=== PATIENT | female | born 1955 | race Hispanic/Latino ===

== ENCOUNTER 2016-08-17 03:13 | Inpatient (IN) | payer BC ==
[2016-08-17 04:18] LABS: ARTERIAL BLOOD GAS HCO3 25.2 mmol/L (21-28); ARTERIAL BLOOD GAS O2 SAT 99.9 % (95-98); ARTERIAL BLOOD GAS TCO2 27.5 mmol.L (22-28)
[2016-08-17 04:27] LABS: ARTERIAL BLOOD GAS PH 7.14 (7.35-7.45)
[2016-08-17 04:27] LABS: VENOUS BLOOD GAS BASE EXCESS -6.4 mmol/L (0.0-2.0); VENOUS BLOOD GAS PO2 76 mm/Hg (30-55)
[2016-08-17 04:28] LABS: ARTERIAL BLOOD GAS PCO2 74 mm/Hg (35-45)
[2016-08-17 04:35] LABS: HEMOGLOBIN 9.9 gm/dL (12.0-16.0); MEAN CELL VOLUME 90.2 fL (80.0-105.0); MEAN CORPUSCULAR HEMOGLOBIN 26.9 pg (25.0-35.0); MEAN CORPUSCULAR HGB CONC 29.8 g/dl (31.0-37.0); PLATELET COUNT 577 10^3/uL (120.0-450.0); RBC 3.68 10^6/uL (3.5-6.1); RED CELL DISTRIBUTION WIDTH 15.9 % (11.5-14.5); VENOUS BLOOD PH 7.07 (7.32-7.43)
[2016-08-17 04:46] LABS: WHITE BLOOD COUNT 27.9 10^3/ul (4.5-11.0)
[2016-08-17 04:49] LABS: ALB/GLOB RATIO 1.4 (1.1-1.8); ALBUMIN 4.2 g/dL (3.0-4.8); ALT/SGPT 51 U/L (7-56); AST/SGOT 48 U/L (15-39); BLOOD UREA NITROGEN 16 mg/dL (7-21); GFR AFRICAN-AMERICAN > 60; GFR NON-AFRICAN AMERICAN 50; MAGNESIUM 2.1 mg/dL (1.7-2.2)
[2016-08-17] MEDS ORDERED: Vancomycin 1gm in NS 250ml 1 GM/250 ML BAG IVPB STA (04:59)
[2016-08-17] MEDS ORDERED: Piperacill/Tazo 4.5gm in NS 4.5 GM/100 ML BAG IVPB STA (04:59)
[2016-08-17 05:01] LABS: B-TYPE NATRIURETIC PEPTIDE 7630 pg/mL (0-450); TROPONIN I 0.05 ng/mL
--- NOTE | 2016-08-17 05:15 | ED PDOC ---
Arrival/HPI - General Chief Complaint: Chest Pain Time Seen by Provider: 08/17/16 03:32 Historian: Patient - Critical Care Critical Care Minutes: 60 minutes - History of Present Illness Narrative History of Present Illness (Text): 08/17/16 03:32 Kenny Messina is a 61 year old female, whose past medical history includes CHF and COPD, who presents to the emergency department complaining of acute onset of shortness of breath that began about 3 hours prior to arrival. Patient notes that she also experiences associated coughs with some mucous production. Patient denies any recent travel, chest pain, fever, nausea, vomiting, or any other complaint at this time. Time/Duration: 1-3 hours Symptom Onset: Sudden Symptom Course: Unchanged Activities at Onset: Rest Context: Home Past Medical History - Provider Review Nursing Documentation Reviewed: Yes - Infectious Disease Hx of Infectious Diseases: None - Reproductive Menopause: Yes - Cardiac Hx Cardiac Disorders: Yes Hx Angina: No Hx Cardiac Arrhythmia: No Hx Circulatory Problems: Yes Hx Congestive Heart Failure: No Hx Heart Murmur: No Hx Heart Transplant: No Hx Hypertension: Yes Hx Internal Defibrillator: No Hx Mitral Valve Prolapse: No Hx Pacemaker: No Hx Peripheral Edema: No Hx Peripheral Vascular Disease: Yes - Pulmonary Hx Respiratory Disorders: Yes Hx Asthma: No Hx Bronchitis: No Hx Chronic Obstructive Pulmonary Disease (COPD): Yes Hx Emphysema: No Hx Pneumonia: Yes Hx Respiratory Aspiration: No Hx Respiratory Tract Infection: No Hx Sleep Apnea: No Hx Tuberculosis: No - Neurological Hx Neurological Disorder: No Hx Alzheimer's Disease: No HX Cerebrovascular Accident: No Hx Dementia: No Hx Dizziness: No Hx Meningitis: No Hx Migraine: No Hx Parkinson's Disease: No Hx Seizures: No Hx Transient Ischemic Attacks (TIA): No - HEENT Hx HEENT Disorder: No Hx Blind: No Hx Cataracts: No Hx Deafness: No Hx Difficulty Chewing: No Hx Epistaxis: No Hx Glaucoma: No Hx Macular Degeneration: No - Renal Hx Renal Disorder: No Hx Dialysis: No Hx Kidney Stones: No Hx Neurogenic Bladder: No Hx Pyelonephritis: No Hx Renal Cancer: No Hx Renal Failure: No - Endocrine/Metabolic Hx Endocrine Disorders: Yes Hx Adrenal Cancer: No Hx Diabetes Insipidus: No Hx Diabetes Mellitus Type 1: No Hx Diabetes Mellitus Type 2: Yes Hx Hyperthyroidism: No Hx Hypothyroidism: No Hx Systemic Lupus Erythematosus: No - Hematological/Oncological Hx Blood Disorders: No Hx AIDS: No Hx Anemia: No Hx Cancer: No Hx Chemotherapy: No Hx Cirrhosis: No Hx Hemophilia: No Hx Hepatitis A: No Hx Hepatitis B: No Hx Hepatitis C: No Hx Metastasis: No Hx Shingles: No Hx Sickle Cell Disease: No Hx Unexplained Bleeding: No - Integumentary Hx Dermatological Disorder: No Hx Basal Cell Carcinoma: No Hx Eczema: No Hx Melanoma: No Hx Psoriasis: No Hx Squamous Cell Carcinoma: No - Musculoskeletal/Rheumatological Hx Musculoskeletal Disorders: No Hx Falls: No - Gastrointestinal Hx Gastrointestinal Disorders: No Hx Colostomy: No Hx Crohn's Disease: No Hx Diverticulitis: No Hx Gall Bladder Disease: No Hx Gastroesophageal Reflux: No Hx Ileostomy: No Hx Liver Failure: No Hx Pancreatitis: No HX Swallowing Problems: No - Genitourinary/Gynecological Hx Genitourinary Disorders: No Hx Hematuria: No Hx Incontinence: No Hx Sexually Transmitted Diseases: No Hx Urinary Tract Infection: No - Psychiatric Hx Psychophysiologic Disorder: No Hx Anxiety: No Hx Bipolar Disorder: No Hx Depression: No Hx Emotional Abuse: No Hx Hallucinations: No Hx Panic Disorder: No Hx Post Traumatic Stress Disorder: No Hx Psychosis: No Hx Physical Abuse: No Hx Schizophrenia: No Hx Sexual Abuse: No Hx Substance Use: No - Surgical History Hx Amputation: No Hx Appendectomy: No Hx Cardiac Catheterization: Yes Hx Cholecystectomy: No Hx Coronary Stent: Yes Hx Gastric Bypass Surgery: No Hx Hysterectomy: No Hx Joint Replacement: No Hx Kidney Transplant: No Hx Liver Transplant: No Hx Mastectomy: No Hx Musculoskeletal Surgery: No Hx Open Heart Surgery: No Hx Orthopedic Surgery: No Hx Splenectomy: No Hx Valve Replacement: No - Anesthesia Hx Anesthesia Reactions: No Hx Malignant Hyperthermia: No - Suicidal Assessment Feels Threatened In Home Enviroment: No Family/Social History - Physician Review Nursing Documentation Reviewed: Yes Family/Social History: No Known Family HX Smoking Status: Former Smoker Hx Alcohol Use: No Hx Substance Use: No Allergies/Home Meds Allergies/Adverse Reactions: Allergies codeine Allergy (Verified 08/17/16 03:27) DIZZINESS erythromycin base Allergy (Verified 08/17/16 03:27) ANAPHYLAXIS promethazine Allergy (Verified 08/17/16 03:27) HEADACHE ciprofloxacin [From Cipro] Adverse Reaction (Verified 08/17/16 03:27) DIZZINESS ciprofloxacin HCl [From Cipro] Adverse Reaction (Verified 08/17/16 03:27) DIZZINESS Home Medications: Home Meds Medication Instructions Recorded Confirmed Simvastatin 5 mg PO .LUNCHTIME 12/21/15 08/17/16 Sitagliptin Phos/Metformin HCl 1 each PO ACD 12/21/15 08/17/16 [Janumet 50-1,000 mg Tablet] Aspirin [Aspirin Chewable] 81 mg PO DAILY 01/30/16 08/17/16 Glimepiride [Amaryl] 1 mg PO ACB 01/30/16 08/17/16 Carvedilol [Coreg] 12.5 mg PO DAILY 04/11/16 08/17/16 Lisinopril [Zestril] 20 mg PO .DINNERTIME 04/11/16 08/17/16 Furosemide [Lasix] 40 mg PO ACB 08/17/16 08/17/16 Review of Systems - Physician Review All systems were reviewed & negative as marked: Yes - Review of Systems Constitutional: absent: Fevers, Night Sweats Eyes: absent: Vision Changes ENT: absent: Hearing Changes Respiratory: SOB, Cough, Sputum Cardiovascular: absent: Chest Pain Gastrointestinal: absent: Abdominal Pain Genitourinary Female: absent: Dysuria, Frequency Musculoskeletal: absent: Arthralgias, Back Pain Skin: absent: Rash, Pruritis Neurological: absent: Headache, Dizziness Endocrine: absent: Diaphoresis, Polyuria Hemo/Lymphatic: absent: Adenopathy Psychiatric: absent: Anxiety Physical Exam Vital Signs Reviewed: Yes Vital Signs Temp Pulse Resp BP Pulse Ox 08/17/16 06:12 92 H 20 125/87 100 08/17/16 05:45 97 H 22 143/79 100 08/17/16 05:32 104 H 24 143/79 100 08/17/16 05:21 110 H 24 134/73 100 08/17/16 05:06 107 H 24 139/65 100 08/17/16 04:45 117 H 22 158/90 H 100 08/17/16 04:33 119 H 28 H 97 08/17/16 04:24 176/95 H 08/17/16 04:11 98.3 F 125 H 28 H 100 08/17/16 03:20 97.7 F 119 H 22 94 L Temperature: Afebrile Blood Pressure: Normal Pulse: Tachycardic Respiratory Rate: Normal Appearance: Positive for: Other (In moderate to severe distress) Pain Distress: None - Systems Exam Head: Present: Atraumatic, Normocephalic Pupils: Present: PERRL Extroacular Muscles: Present: EOMI Conjunctiva: Present: Normal Ears: Present: Normal Mouth: Present: Moist Mucous Membranes Neck: Present: Normal Range of Motion Respiratory/Chest: Present: Rales (3/4 up both lungs). No: Clear to Auscultation, Good Air Exchange (Poor air intake) Cardiovascular: No: Regular Rate and Rhythm (regular and tachycardic) Abdomen: Present: Normal Bowel Sounds. No: Tenderness, Distention, Peritoneal Signs Back: Present: Normal Inspection Upper Extremity: Present: Normal Inspection. No: Cyanosis, Edema Lower Extremity: Present: Normal Inspection. No: Edema Neurological: Present: Other (Somnolent ) Skin: Present: Cold (and clammy) Medical Decision Making ED Course and Treatment: 08/17/16 03:35 Impression: 61 year old female complaining of acute onset of shortness of breath that began about 3 hours prior to arrival. Differential Diagnosis include but are not limited to: Sepsis Plan: -- EKG -- Chest X-ray -- Type and Screen, ABG, VBG, Blood Culture -- Urinalysis, Urine culture -- O2 via Nasal Cannula -- Labs -- Lasix, Vancomycin, and Zosyn -- Reassess and disposition Prior Visits: Notes and results from previous visits were reviewed. Patient last seen in ED on Progress Notes: Code Sepsis called for patient, after CBC results showed an elevated WBC. ICU evaluation pending. EKG: Ordered, reviewed, and independently interpreted the EKG. Rate : 126 BPM Rhythm : Accelerated junctional rhythm Interpretation : Normal Brice, Prolonged QT. 08/17/16 03:35 Patient put in BiPAP immediately on arrival. 08/17/16 04:25 After some time with BiPAP, patient became more awake with respiratory drive less labored. 08/17/16 04:45 Radiology reviewed, Chest X-ray shows CHF pattern. Questionable pleural effusion in right base vs. infiltrate. - Lab Interpretations Lab Results: 08/17/16 04:11 08/17/16 04:11 Lab Results 08/17/16 05:30: Urine Color Yellow, Urine Appearance Clear, Urine pH 6.0, Ur Specific Gove 1.025, Urine Protein 100 H, Urine Glucose (UA) Negative, Urine Ketones Negative, Urine Blood Trace-intact H, Urine Nitrate Negative, Urine Bilirubin Negative, Urine Urobilinogen 0.2, Ur Leukocyte Esterase Trace H, Urine RBC 0 - 2, Urine WBC 0 - 2, Ur Epithelial Cells 0 - 2, Hyaline Casts 0 - 2 08/17/16 04:11: Phosphorus 6.6 H 08/17/16 04:11: Digoxin 1.3 08/17/16 04:11: pO2 76 H, VBG pH 7.07 L*, VBG pCO2 89.0 H*, VBG HCO3 25.8, VBG Total CO2 28.5 H, VBG O2 Sat (Calc) 92.8 H, VBG Base Excess -6.4 L, VBG Potassium 4.7, Sodium 137.0, Chloride 101.0, Glucose 340 H, Lactate 6.0 H*, FiO2 21.0, Venous Blood Potassium 4.7 08/17/16 04:11: Sodium 137, Chloride 98, Potassium 4.3, Carbon Dioxide 25, Anion Gap 18, BUN 16, Creatinine 1.1, Est GFR ( Amer) > 60, Est GFR (Non- Af Amer) 50, Random Glucose 325 H* D, Calcium 9.0, Magnesium 2.1, Total Bilirubin 0.6, AST 48 H, ALT 51, Alkaline Phosphatase 79, Lactate Dehydrogenase 458, Total Creatine Kinase 23 L, Troponin I 0.05 D, NT-Pro-B Natriuret Pep 7630 H, Total Protein 7.3, Albumin 4.2, Globulin 3.1, Albumin/Globulin Ratio 1.4 08/17/16 04:11: WBC 27.9 H* D, RBC 3.68, Hgb 9.9 L, Hct 33.2 L, MCV 90.2, MCH 26.9, MCHC 29.8 L, RDW 15.9 H, Plt Count 577 H, MPV 10.0, Neutrophils % (Manual ) 70, Band Neutrophils % 4 H, Lymphocytes % (Manual) 17 L, Monocytes % (Manual) 5, Eosinophils % (Manual) 4 H, Platelet Evaluation Slightly high 08/17/16 04:08: pCO2 74 H*, pO2 287.0 H, HCO3 25.2, ABG pH 7.14 L*, ABG Total CO2 27.5, ABG O2 Saturation 99.9 H, ABG Base Excess -4.4 L, ABG Potassium 4.6, Sodium 136.0, Chloride 104.0, Glucose 356 H, Lactate 4.1 H*, Mechanical Rate 16 , FiO2 100.0, Inspiratory BiPAP 14, Arterial Blood Potassium 4.6 08/17/16 04:07: POC Glucose (mg/dL) 323 H I have reviewed the lab results: Yes - RAD Interpretation Radiology Orders: 08/17/16 03:33 CHEST PORTABLE [RAD] Stat - Medication Orders Current Medication Orders: Albuterol/Ipratropium (Duoneb 3 Mg/0.5 Mg (3 Ml) Ud) 3 ml IH [id number] QUIRINO Albuterol/Ipratropium (Duoneb 3 Mg/0.5 Mg (3 Ml) Ud) 3 ml IH Q2H PRN PRN Reason: Shortness of Breath Aspirin (Aspirin Chewable) 81 mg PO DAILY QUIRINO Carvedilol (Coreg) 12.5 mg PO DAILY QUIRINO Clopidogrel Bisulfate (Plavix) 75 mg PO DAILY QUIRINO Digoxin (Lanoxin) 0.25 mg PO 1400 QUIRINO Enoxaparin Sodium (Lovenox) 40 mg SC DAILY QUIRINO PRN Reason: Protocol Furosemide (Lasix) 40 mg IVP Q12 QUIRINO Vancomycin HCl (Vancomycin 1gm) 1 gm in 250 mls @ 167 mls/hr IVPB STAT STA PRN Reason: Protocol Stop: 08/17/16 06:28 Last Admin: 08/17/16 06:03 Dose: 167 mls/hr Vancomycin HCl (Vancomycin 1gm) 1 gm in 250 mls @ 167 mls/hr IVPB Q12H QUIRINO PRN Reason: Protocol Piperacillin Sod/Tazobactam Sod (Zosyn 4.5 Gm In Ns 100ml) 4.5 gm in 100 mls @ 200 mls/hr IVPB Q6 QUIRINO PRN Reason: Protocol Stop: 08/17/16 18:29 Insulin Human Lispro (Humalog Med) 0 units SC Q6 QUIRINO PRN Reason: Protocol Lisinopril (Zestril) 20 mg PO .DINNERTIME QUIRINO Non-Formulary Medication (Simvastatin [Simvastatin]) 5 mg PO .LUNCHTIME QUIRINO Pantoprazole Sodium (Protonix Inj) 40 mg IVP DAILY QUIRINO Discontinued Medications Furosemide (Lasix) 40 mg IVP STAT STA Stop: 08/17/16 04:11 Last Admin: 08/17/16 04:24 Dose: 40 mg Piperacillin Sod/Tazobactam Sod (Zosyn 4.5 Gm In Ns 100ml) 4.5 gm in 100 mls @ 200 mls/hr IVPB STAT STA PRN Reason: Protocol Stop: 08/17/16 05:28 Last Admin: 08/17/16 05:13 Dose: 200 mls/hr - Scribe Statement The provider has reviewed the documentation as recorded by the Andrew Jean-Baptiste Provider Scribe Attestation: All medical record entries made by the Scribe were at my direction and personally dictated by me. I have reviewed the chart and agree that the record accurately reflects my personal performance of the history, physical exam, medical decision making, and the department course for this patient. I have also personally directed, reviewed, and agree with the discharge instructions and disposition. Disposition/Present on Arrival - Present on Arrival Any Indicators Present on Arrival: No History of DVT/PE: No History of Uncontrolled Diabetes: No Urinary Catheter: No History of Decub. Ulcer: No History Surgical Site Infection Following: None - Disposition Have Diagnosis and Disposition been Completed?: Yes Diagnosis: Respiratory failure, acute, Chronic obstructive airway disease, Congestive heart failure Disposition: HOSPITALIZED Disposition Time: 05:00 Patient Plan: Admission, ICU Condition: GUARDED
[2016-08-17] MEDS ORDERED: Insulin Lispro (humaLOG) MEDIUM Coverage SC SCH (06:00)
--- NOTE | 2016-08-17 06:04 | CP.PCM.CON ---
History of Present Illness - History of Present Illness History of Present Illness: Reason for consultation: ICU management History of present illness: Patient is a 61 year old female with a PMHx of CHF, COPD, and PVD who presented today with the complaints of difficulty breathing. She states that she was trying to sleep and realized she was struggling to breathe. She also mentions that as of late she has a productive cough and at times brings up clear phlegm. She denies nausea, vomiting, diarrhea, headache, chest pain. Past Medical History:COPD, CHF, PVD Home medications:Simvastatin 10 mg, Janumet 50-1000mg, Plavix 75 mg tab, Aspirin 81 mg PO daily, Amaryl 1 mg PO, Lanoxin 0.25 mg PO, Zestril 20 g PO at dinner, Coreg 12.5 mg daily, lasix 40 mg PO ACB. Current Meds:Janumet 50-1000 mg 1 each PO ACD, Amaryl 1 mg PO ACB, Lasix 40 mg PO ACB, Vancomycin 1 gm, Zosyn 4.5 gm, Duoneb 3mg/0.5 q2H PRN, Humalog SC Q6, Zestril 20 mg PO, Simvastatin 5 mg PO lunchtime, Duoneb 3mg/0.5 # ml IH [id number] , Lasix 40 mg IVP Q12, Aspirin 81 mg PO daily, Coreg 12.5 daily, Plavix 75 mg PO daily, Aosyn 4.5 in 100 ml IVPB Q6, Lanoxin 0.25 mg PO 1400, Vancomycin 1 gm in 250 ml IVPB Q12H Allergies: codeine, erythromycin base, promethazine, ciprofloxacin Social History: Patient smoked heavily until she was intubated in December Past Patient History - Infectious Disease Hx of Infectious Diseases: None - Past Social History Smoking Status: Former Smoker - CARDIAC Hx Cardiac Disorders: Yes Hx Angina: No Hx Cardia Arrhythmia: No Hx Circulatory Problems: Yes Hx Congestive Heart Failure: No Hx Heart Murmur: No Hx Heart Transplant: No Hx Hypertension: Yes Hx Internal Defibrillator: No Hx Mitral Valve Prolapse: No Hx Pacemaker: No Hx Peripheral Edema: No Hx Peripheral Vascular Disease: Yes - PULMONARY Hx Respiratory Disorders: Yes Hx Asthma: No Hx Bronchitis: No Hx Chronic Obstructive Pulmonary Disease (COPD): Yes Hx Emphysema: No Hx Pneumonia: Yes Hx Respiratory Aspiration: No Hx Respiratory Tract Infection: No Hx Sleep Apnea: No Hx Tuberculosis: No - NEUROLOGICAL Hx Neurological Disorder: No Hx Alzheimer's Disease: No HX Cerebrovascular Accident: No Hx Dementia: No Hx Dizziness: No Hx Meningitis: No Hx Migraine: No Hx Parkinson's Disease: No Hx Seizures: No Hx Transient Ischemic Attacks (TIA): No - HEENT Hx HEENT Problems: No Hx Blind: No Hx Cataracts: No Hx Deafness: No Hx Difficulty Chewing: No Hx Epistaxis: No Hx Glaucoma: No Hx Macular Degeneration: No - RENAL Hx Chronic Kidney Disease: No Hx Dialysis: No Hx Kidney Stones: No Hx Neurogenic Bladder: No Hx Pyelonephritis: No Hx Renal (Kidney) Cancer: No Hx Renal Failure: No - ENDOCRINE/METABOLIC Hx Endocrine Disorders: Yes Hx Adrenal Cancer: No Hx Diabetes Insipidus: No Hx Diabetes Mellitus Type 1: No Hx Diabetes Mellitus Type 2: Yes Hx Hyperthyroidism: No Hx Hypothyroidism: No Hx Systemic Lupus Erythematosus: No - HEMATOLOGICAL/ONCOLOGICAL Hx Blood Disorders: No Hx AIDS: No Hx Anemia: No Hx Cancer: No Hx Chemotherapy: No Hx Cirrhosis: No Hx Hemophilia: No Hx Hepatitis A: No Hx Hepatitis B: No Hx Hepatitis C: No Hx Metastesis: No Hx Shingles: No Hx Sickle Cell Disease: No Hx Unexplained Bleeding: No - INTEGUMENTARY Hx Dermatological Problems: No Hx Basil Cell: No Hx Eczema: No Hx Melanoma: No Hx Psoriasis: No Hx Squamous Cell: No - MUSCULOSKELETAL/RHEUMATOLOGICAL Hx Musculoskeletal Disorders: No Hx Falls: No - GASTROINTESTINAL Hx Gastrointestinal Disorders: No Hx Colostomy: No Hx Crohn's Disease: No Hx Diverticulitis: No Hx Gall Bladder Disease: No Hx Gastroesophageal Reflux: No Hx Ileostomy: No Hx Liver Failure: No Hx Pancreatitis: No HX Swallowing Problems: No - GENITOURINARY/GYNECOLOGICAL Hx Genitourinary Disorders: No Hx Hematuria: No Hx Incontinence: No Hx Sexually Transmitted Disorders: No Hx Urinary Tract Infection: No - PSYCHIATRIC Hx Psychophysiologic Disorder: No Hx Anxiety: No Hx Bipolar Disorder: No Hx Depression: No Hx Emotional Abuse: No Hx Hallucinations: No Hx Panic Symptoms: No Hx Post Traumatic Stress Disorder: No Hx Psychosis: No Hx Physical Abuse: No Hx Schizophrenia: No Hx Sexual Abuse: No Hx Substance Use: No - SURGICAL HISTORY Hx Amputation: No Hx Appendectomy: No Hx Cardiac Catheterization: Yes Hx Cholecystectomy: No Hx Coronary Stent: Yes Hx Gastric Bypass Surgery: No Hx Hysterectomy: No Hx Joint Replacement: No Hx Kidney Transplant: No Hx Liver Transplant: No Hx Mastectomy: No Hx Musculoskeletal Surgery: No Hx Open Heart Surgery: No Hx Orthopedic Surgery: No Hx Splenectomy: No Hx Valve Replacement: No - ANESTHESIA Hx Anesthesia Reactions: No Hx Malignant Hyperthermia: No Meds Allergies/Adverse Reactions: Allergies Allergy/AdvReac Type Severity Reaction Status Date / Time codeine Allergy DIZZINESS Verified 08/17/16 03:27 erythromycin base Allergy ANAPHYLAXIS Verified 08/17/16 03:27 promethazine Allergy HEADACHE Verified 08/17/16 03:27 ciprofloxacin [From Cipro] AdvReac DIZZINESS Verified 08/17/16 03:27 ciprofloxacin HCl AdvReac DIZZINESS Verified 08/17/16 03:27 [From Cipro] - Medications Medications: Current Medications Vancomycin HCl (Vancomycin 1gm) 1 gm in 250 mls @ 167 mls/hr IVPB STAT STA PRN Reason: Protocol Stop: 08/17/16 06:28 Vancomycin HCl (Vancomycin 1gm) 1 gm in 250 mls @ 167 mls/hr IVPB Q12H QUIRNIO PRN Reason: Protocol Piperacillin Sod/Tazobactam Sod (Zosyn 4.5 Gm In Ns 100ml) 4.5 gm in 100 mls @ 200 mls/hr IVPB Q6 QUIRINO PRN Reason: Protocol Stop: 08/17/16 18:29 Results - Vital Signs Recent Vital Signs: Last Vital Signs Temp 98.3 F 08/17/16 04:11 Pulse 119 H 08/17/16 04:33 Resp 28 H 08/17/16 04:33 BP 176/95 H 08/17/16 04:24 Pulse Ox 97 08/17/16 04:33 - Labs Result Diagrams: 08/17/16 04:11 08/17/16 04:11
[2016-08-17 06:06] LABS: URINE BILIRUBIN NEGATIVE (NEGATIVE); URINE BLOOD TRACE-INTACT (NEGATIVE); URINE GLUCOSE (UA) NEGATIVE (NEGATIVE); URINE LEUKOCYTE ESTERASE TRACE Leu/uL (NEGATIVE); URINE NITRATE NEGATIVE (NEGATIVE); URINE PROTEIN 100 mg/dL (<30 mg/dL); URINE UROBILINOGEN 0.2 E.U./dL (<1 E.U./dL)
[2016-08-17 06:07] LABS: URINE APPEARANCE CLEAR (CLEAR); URINE COLOR YELLOW (YELLOW)
[2016-08-17 06:14] LABS: BAND 4 % (0-2); NEUTROPHIL 70 % (50.0-70.0)
[2016-08-17 06:15] LABS: EOSINOPHIL 4 % (0.0-3.0); LYMPHOCYTE 17 % (22.0-35.0); MONOCYTE 5 % (1.0-6.0); PLATELET ESTIMATE SLIGHTLY HIGH (NORMAL)
[2016-08-17 06:19] LABS: URINE EPITHELIAL CELLS 0 - 2 /hpf (0-5); URINE HYALINE CAST 0 - 2 /hpf; URINE RBC 0 - 2 /hpf (0-2); URINE WBC 0 - 2 /hpf (0-6)
[2016-08-17 07:18] LABS: HEMOGLOBIN 8.7 gm/dL (12.0-16.0); MEAN CELL VOLUME 88.4 fL (80.0-105.0); MEAN CORPUSCULAR HEMOGLOBIN 26.4 pg (25.0-35.0); MEAN CORPUSCULAR HGB CONC 29.9 g/dl (31.0-37.0); MEAN PLATELET VOLUME 9.4 fl (7.0-11.0); PLATELET COUNT 389 10^3/uL (120.0-450.0); RBC 3.29 10^6/uL (3.5-6.1); RED CELL DISTRIBUTION WIDTH 15.6 % (11.5-14.5); WHITE BLOOD COUNT 22.6 10^3/ul (4.5-11.0)
[2016-08-17 07:31] LABS: ALB/GLOB RATIO 1.4 (1.1-1.8); ALBUMIN 3.7 g/dL (3.0-4.8); ALT/SGPT 62 U/L (7-56); AST/SGOT 58 U/L (15-39); BLOOD UREA NITROGEN 19 mg/dL (7-21); GFR AFRICAN-AMERICAN > 60; GFR NON-AFRICAN AMERICAN 50; HDL CHOLESTEROL 41 mg/dL (29-60); LDL CHOLESTEROL 42 mg/dL (0-129)
--- NOTE | 2016-08-17 07:35 | CP.PCM.CON ---
<Skinny Barry - Last Filed: 08/17/16 09:05> History of Present Illness - History of Present Illness History of Present Illness: ICU Consult for Dr. Longoria Reason for consultation: Code Sepsis, Pneumonia vs CHF with desaturations to 70 % requiring BiPAP HPI: This is a 61 yo female with a PMH of COPD (previously intubated x2 for resp failure), CAD s/p stenting. NSTEMI in Dec 2015, CHF with EF 35-40% ( Dec 2015), and PAD with claudication who presented to the ED with significant dyspnea and respiratory distress. As per patient and at bedside, her breathing became acutely difficult approximately 3-4 hours prior to presentation , while trying to sleep. Only alleviating factor was sitting up and leaning forward, with minimal relief. Patient does admit to recent increased cough, intermittently productive with white phlegm. Upon arrival to ED, was found to be in respiratory distress and severely acidotic and hypercapnic on ABG, desatting to the 70's as per ED attending. She was then started on BiPAP, at which point her sats improved to 90's and her tachycardia and respiratory distress improved. CXR was notable for diffuse R-sided infiltrate and opcification, concerning for pneumonia vs fluid overload. WBC count on ED labs was 27.9 and lactate was 4.1, so in the setting of suspected pneumonia, Code Sepsis was called. At time of interview, patient was stable on Bipap with mild tachycardia (HR on monitor 100-110), but satting 100% on Bipap, and appearing less distressed. Patient denies chest pain, pain with breathing, near-syncope, nausea/emesis, focal weakness, or general pain. Intermittently experiencing cough spams during exam. PMH: As above PSH: Cardiac cath SHx: Former smoker (1-2 ppd x40 years, quit Dec 2015), denies alcohol/illicits FHx (as per prior charting): Brain Cancer (mother), Diabetes (father) Allergies: codeine, erythromycin base, promethazine, ciprofloxacin PMD: Dr. Corona Review of Systems - Review of Systems All systems: reviewed and no additional remarkable complaints except (as in HPI) Past Patient History - Infectious Disease Hx of Infectious Diseases: None - Past Social History Smoking Status: Former Smoker - CARDIAC Hx Cardiac Disorders: Yes Hx Angina: No Hx Cardia Arrhythmia: No Hx Circulatory Problems: Yes Hx Congestive Heart Failure: No Hx Heart Murmur: No Hx Heart Transplant: No Hx Hypertension: Yes Hx Internal Defibrillator: No Hx Mitral Valve Prolapse: No Hx Pacemaker: No Hx Peripheral Edema: No Hx Peripheral Vascular Disease: Yes - PULMONARY Hx Respiratory Disorders: Yes Hx Asthma: No Hx Bronchitis: No Hx Chronic Obstructive Pulmonary Disease (COPD): Yes Hx Emphysema: No Hx Pneumonia: Yes Hx Respiratory Aspiration: No Hx Respiratory Tract Infection: No Hx Sleep Apnea: No Hx Tuberculosis: No - NEUROLOGICAL Hx Neurological Disorder: No Hx Alzheimer's Disease: No HX Cerebrovascular Accident: No Hx Dementia: No Hx Dizziness: No Hx Meningitis: No Hx Migraine: No Hx Parkinson's Disease: No Hx Seizures: No Hx Transient Ischemic Attacks (TIA): No - HEENT Hx HEENT Problems: No Hx Blind: No Hx Cataracts: No Hx Deafness: No Hx Difficulty Chewing: No Hx Epistaxis: No Hx Glaucoma: No Hx Macular Degeneration: No - RENAL Hx Chronic Kidney Disease: No Hx Dialysis: No Hx Kidney Stones: No Hx Neurogenic Bladder: No Hx Pyelonephritis: No Hx Renal (Kidney) Cancer: No Hx Renal Failure: No - ENDOCRINE/METABOLIC Hx Endocrine Disorders: Yes Hx Adrenal Cancer: No Hx Diabetes Insipidus: No Hx Diabetes Mellitus Type 1: No Hx Diabetes Mellitus Type 2: Yes Hx Hyperthyroidism: No Hx Hypothyroidism: No Hx Systemic Lupus Erythematosus: No - HEMATOLOGICAL/ONCOLOGICAL Hx Blood Disorders: No Hx AIDS: No Hx Anemia: No Hx Cancer: No Hx Chemotherapy: No Hx Cirrhosis: No Hx Hemophilia: No Hx Hepatitis A: No Hx Hepatitis B: No Hx Hepatitis C: No Hx Metastesis: No Hx Shingles: No Hx Sickle Cell Disease: No Hx Unexplained Bleeding: No - INTEGUMENTARY Hx Dermatological Problems: No Hx Basil Cell: No Hx Eczema: No Hx Melanoma: No Hx Psoriasis: No Hx Squamous Cell: No - MUSCULOSKELETAL/RHEUMATOLOGICAL Hx Musculoskeletal Disorders: No Hx Falls: No - GASTROINTESTINAL Hx Gastrointestinal Disorders: No Hx Colostomy: No Hx Crohn's Disease: No Hx Diverticulitis: No Hx Gall Bladder Disease: No Hx Gastroesophageal Reflux: No Hx Ileostomy: No Hx Liver Failure: No Hx Pancreatitis: No HX Swallowing Problems: No - GENITOURINARY/GYNECOLOGICAL Hx Genitourinary Disorders: No Hx Hematuria: No Hx Incontinence: No Hx Sexually Transmitted Disorders: No Hx Urinary Tract Infection: No - PSYCHIATRIC Hx Psychophysiologic Disorder: No Hx Anxiety: No Hx Bipolar Disorder: No Hx Depression: No Hx Emotional Abuse: No Hx Hallucinations: No Hx Panic Symptoms: No Hx Post Traumatic Stress Disorder: No Hx Psychosis: No Hx Physical Abuse: No Hx Schizophrenia: No Hx Sexual Abuse: No Hx Substance Use: No - SURGICAL HISTORY Hx Amputation: No Hx Appendectomy: No Hx Cardiac Catheterization: Yes Hx Cholecystectomy: No Hx Coronary Stent: Yes Hx Gastric Bypass Surgery: No Hx Hysterectomy: No Hx Joint Replacement: No Hx Kidney Transplant: No Hx Liver Transplant: No Hx Mastectomy: No Hx Musculoskeletal Surgery: No Hx Open Heart Surgery: No Hx Orthopedic Surgery: No Hx Splenectomy: No Hx Valve Replacement: No - ANESTHESIA Hx Anesthesia Reactions: No Hx Malignant Hyperthermia: No Meds Allergies/Adverse Reactions: Allergies Allergy/AdvReac Type Severity Reaction Status Date / Time codeine Allergy DIZZINESS Verified 08/17/16 03:27 erythromycin base Allergy ANAPHYLAXIS Verified 08/17/16 03:27 promethazine Allergy HEADACHE Verified 08/17/16 03:27 ciprofloxacin [From Cipro] AdvReac DIZZINESS Verified 08/17/16 03:27 ciprofloxacin HCl AdvReac DIZZINESS Verified 08/17/16 03:27 [From Cipro] - Medications Medications: Current Medications Albuterol/Ipratropium (Duoneb 3 Mg/0.5 Mg (3 Ml) Ud) 3 ml IH [id number] QUIRINO Albuterol/Ipratropium (Duoneb 3 Mg/0.5 Mg (3 Ml) Ud) 3 ml IH Q2H PRN PRN Reason: Shortness of Breath Aspirin (Aspirin Chewable) 81 mg PO DAILY [facility] Atorvastatin Calcium (Lipitor) 10 mg PO DIN [facility] Carvedilol (Coreg) 12.5 mg PO DAILY [facility] Clopidogrel Bisulfate (Plavix) 75 mg PO DAILY [facility] Digoxin (Lanoxin) 0.25 mg PO 1400 [facility] Enoxaparin Sodium (Lovenox) 40 mg SC DAILY [facility] PRN Reason: Protocol Furosemide (Lasix) 40 mg IVP Q12 [facility] Vancomycin HCl (Vancomycin 1gm) 1 gm in 250 mls @ 167 mls/hr IVPB Q12H [facility] PRN Reason: Protocol Piperacillin Sod/Tazobactam Sod (Zosyn 4.5 Gm In Ns 100ml) 4.5 gm in 100 mls @ 200 mls/hr IVPB Q6 [facility] PRN Reason: Protocol Stop: 08/17/16 18:29 Insulin Human Lispro (Humalog Med) 0 units SC Q6 [facility] PRN Reason: Protocol Lisinopril (Zestril) 20 mg PO DIN [facility] Pantoprazole Sodium (Protonix Inj) 40 mg IVP DAILY [facility] Physical Exam - Constitutional Appears: Non-toxic, Chronically Ill Additional comments: Resolving distress, patient in reduced respiratory distress on BiPAP and generally more stable - Head Exam Head Exam: ATRAUMATIC, NORMAL INSPECTION, NORMOCEPHALIC - Eye Exam Eye Exam: EOMI, Normal appearance. absent: Conjunctival injection, Scleral icterus Pupil Exam: absent: Irregular, Unequal - ENT Exam Additional comments: wearing BiPAP mask - Neck Exam Neck exam: Negative for: Tenderness - Respiratory Exam Respiratory Exam: Decreased Breath Sounds (diffusely decreased breath sounds in all truong), Rales (significant rales along all truong of bottom 2/3rd of right lung, present anterior and posteriorly). absent: Accessory Muscle Use, Chest Wall Tenderness, Clear to Auscultation Bilateral, Stridor, NORMAL BREATHING PATTERN Additional comments: wearing bipap intermittent coughing fits during exam - Cardiovascular Exam Cardiovascular Exam: Tachycardia, REGULAR RHYTHM, +S1, +S2. absent: Bradycardia , Irregular Rhythm, JVD, RRR, +S4 - GI/Abdominal Exam GI & Abdominal Exam: Normal Bowel Sounds, Soft. absent: Diminished Bowel Sounds , Hyperactive Bowel Sounds, Hypoactive Bowel Sounds, Tenderness - Extremities Exam Extremities exam: Negative for: calf tenderness, joint swelling, pedal edema, tenderness - Back Exam Back exam: absent: rash noted - Neurological Exam Neurological exam: Alert, Oriented x3 - Psychiatric Exam Psychiatric exam: Normal Affect Additional comments: some mild anxiety, but improved as compared to level on arrival, likely 2/2 respiratory distress and improvement of distress - Skin Skin Exam: Dry, Intact, Normal Color, Warm Results - Vital Signs Recent Vital Signs: Last Vital Signs Temp 98.3 F 08/17/16 04:11 Pulse 92 H 08/17/16 06:12 Resp 20 08/17/16 06:12 BP 125/87 08/17/16 06:12 Pulse Ox 100 08/17/16 06:12 - Labs Result Diagrams: 08/17/16 06:50 08/17/16 06:50 Assessment & Plan - Assessment and Plan (Free Text) Assessment: This is a 61 yo female with a PMH of COPD (previously intubated x2 for resp failure), CAD s/p stenting. NSTEMI in Dec 2015, CHF with EF 35-40% ( Dec 2015), and PAD with claudication who presented to the ED with significant dyspnea and respiratory distress, and was admitted to the ICU for sepsis with lactic acidosis (severe sepsis under old guidelines) and respiratory distress requiring BiPAP. Plan: Neuro: -awake and alert, responsive to questions, following all commands -low-normal temp on arrival (97.7F), remains normothermic currently, continue to monitor -maintain normothermia Cardio: -Tachycardic on arrival, improved now, likely 2/2 respiratory distress -Hemodynamically stable, maintain MAP > 65, no pressor support needed at this time -Continue home Coreg, Asa, statin, digoxin, lisinopril; dig level wnl -Likely some CHF component, BNP 7630 -Holding home lasix in favor of 40mg IVP q12 Lasix -trop#1 0.05 -Cardio consulted, appreciate all recs -no euvolemia as likely fluid overloaded, conservative fluid management Pulm: -CXR concerning for right-sided pneumonia, possible pleural effusion -Afebrile, but leukocytosis of 27.9 and VBG lactate 6.0 with x-ray findings concerning for sepsis 2/2 pneumonia, covering with Vanco & Zosyn pending ID eval -Satting well on BiPAP, desatted to 70's in ED prior to Bipap -ABG in ED notable for respiratory acidosis with ph 7.14, hypercapnea, normal bicarb, not compensated as per winter's formula (expected pCO2 based on bicarb 25.2 is 44-48, pCO2 on abg was 72), repeat ABG in AM, f/u -maintain SaO2 > 90%, paO2 > 60, aspiration precautions, head of bed to 30 degrees -Nebs q4 quirino and q2 prn GI: -NPO -Protonix for ppx Renal: -Cr. 1.1, baseline per prior charting -pt reports no urinary changes or difficulty -monitor and replete all electrolytes as needed -Strict I's&O's, want net-negative fluid balance as appears fluid overloaded -maintain euglycemia (BG 140-180) ID: -WBCs of 27.9, afebrile -Vanc/Zosyn x1 each in ED, will continue pending ID eval and recs -Blood and urine cx pending, UA not indicative of infectious process -Lactate 6.0 on admission -Severe sepsis under old criteria, SOFA score 1 Heme: -Anemia with Hgb 9.9, baseline since Jan 2016 as per charting -continue to monitor -Lovenox for DVT/PE ppx Endo: -elevate BG (>300) on arrival may be 2/2 stress from respiratory distress +/- pneumonia -no anion gap on chemistries -continue to monitor, if no improvement of glucose with improvement of respiratory distress, can consider insulin sliding scale Dispo: ICU, BIPAP for hypercapnic respiratory distress, IV abx for suspected pneumonia and IV diuresis for suspected CHF exacerbation FEN: NPO Access: Peripheral IV Consults: Cardio, ID Ppx: Protonix for GI, Lovenox 40mg SC for DVT Code Status: Unknown, so Full Code Patient seen, reviewed, and discussed with attending, Dr. Longoria. <Swati CORRIGAN,[facility] - Last Filed: 08/27/16 05:10> Results - Vital Signs Recent Vital Signs: Last Vital Signs Temp 97.6 F 08/24/16 17:46 Pulse 75 08/24/16 18:56 Resp 18 08/24/16 17:46 BP 140/78 08/24/16 18:56 Pulse Ox 100 08/24/16 06:00 - Labs Result Diagrams: 08/23/16 07:00 08/23/16 07:00 Attending/Attestation - Attestation I have personally seen and examined this patient.: Yes I have fully participated in the care of the patient.: Yes I have reviewed all pertinent clinical information: Yes Notes (Text): 08/27/16 05:10 -I agree with the above ICU consult note completed by the resident physician.
[2016-08-17 07:48] LABS: FREE T4 1.47 ng/dL (0.78-2.19); T4 9.2 ug/dL (5.5-11.0)
[2016-08-17 08:48] LABS: ATYPICAL LYMPHOCYTE 0 % (0.0-0.0); BAND 7 % (0-2); EOSINOPHIL 1 % (0.0-3.0); LYMPHOCYTE 3 % (22.0-35.0); MONOCYTE 0 % (1.0-6.0); NEUTROPHIL 89 % (50.0-70.0); PLATELET ESTIMATE NORMAL (NORMAL)
[2016-08-17 08:49] LABS: LARGE PLATELETS PRESENT; OVALOCYTES SLIGHT
--- NOTE | 2016-08-17 09:19 | PCM.SEPTIC ---
Sepsis Progress Note - Reassessment Type Date of Evaluation: 08/17/16 Time of Evaluation: 09:30 Reassessment Type: Non-invasive reassessment - Non Invasive Reassessment Were the most recent vital sign reviewed: Yes Vital Sign (Latest): Temp Pulse Resp BP Pulse Ox 98.3 F 92 H 20 125/87 100 08/17/16 04:11 08/17/16 06:12 08/17/16 06:12 08/17/16 06:12 08/17/16 06:12 Cardiovascular: Yes: Regular Rate, Rhythm. No: Bradycardia, Tachycardia Respiratory: Yes: Rales (mild). No: Accessory Muscle Use, Respiratory Distress Capillary Refill: Normal (Less than 2 sec) Skin: Normal Color, Warm
--- NOTE | 2016-08-17 09:24 | RAD ---
HISTORY: SOB COMPARISON: 04/11/2016 FINDINGS: LUNGS: No active pulmonary disease. PLEURA: No significant pleural effusion identified, no pneumothorax apparent. CARDIOVASCULAR: The heart is normal in size. There is mild vascular congestion OSSEOUS STRUCTURES: No significant abnormalities. VISUALIZED UPPER ABDOMEN: Normal. OTHER FINDINGS: None. IMPRESSION: Mild vascular congestion
[2016-08-17 09:25] VITALS: BMI 22.9
[2016-08-17] MEDS: Enoxaparin 40 mg Syringe SC SCH (09:26)
[2016-08-17] MEDS: MethylPREDNISolone 40 mg Vial IV SCH ×2 (09:28→22:23)
[2016-08-17 09:41] LABS: ARTERIAL BLOOD GAS HCO3 26.6 mmol/L (21-28); ARTERIAL BLOOD GAS HEMOGLOBIN 7.3 g/dL (11.7-17.4); ARTERIAL BLOOD GAS O2 CAPACITY 10.7 mL/dl (16-24); ARTERIAL BLOOD GAS O2 CONTENT 10.6 ML/dl (15-23); ARTERIAL BLOOD GAS O2 SAT 99.5 % (95-98); ARTERIAL BLOOD GAS PCO2 42 mm/Hg (35-45); ARTERIAL BLOOD GAS PH 7.41 (7.35-7.45); ARTERIAL BLOOD GAS TCO2 27.9 mmol.L (22-28)
[2016-08-17] MEDS: Albuterol-Ipratrop 3 mg / 0.5 (3 ml) UD IH SCH ×4 (09:43→20:40)
[2016-08-17 10:59] LABS: VENOUS BLOOD GAS BASE EXCESS 4.9 mmol/L (0.0-2.0); VENOUS BLOOD GAS PO2 37 mm/Hg (30-55); VENOUS BLOOD PH 7.36 (7.32-7.43)
--- NOTE | 2016-08-17 11:30 | CP.PCM.PN ---
<JAY CORTEZ - Last Filed: 08/17/16 17:43> Subjective - Date & Time of Evaluation Date of Evaluation: 08/17/16 Time of Evaluation: 11:27 - Subjective Subjective: Pt seen and examined at bedside. Admitted overnight for SOb, labored breathing, hypercapneic resp failure 2/2 COPD. This morning, pt c/o mild cough with white sputum, denies sob, fever, chills, chest tightness, n/v/d, abdominal pain. Objective - Vital Signs/Intake and Output Vital Signs (last 24 hours): Temp Pulse Resp BP Pulse Ox 98.0 F 80 24 125/61 100 08/17/16 06:46 08/17/16 11:00 08/17/16 11:00 08/17/16 11:00 08/17/16 11:00 - Medications Medications: Current Medications Albuterol/Ipratropium (Duoneb 3 Mg/0.5 Mg (3 Ml) Ud) 3 ml IH [id number] COUNTS [facility]CLUDE 234 BEDS AT [facility] Last Admin: 08/17/16 09:43 Dose: 3 ml Albuterol/Ipratropium (Duoneb 3 Mg/0.5 Mg (3 Ml) Ud) 3 ml IH Q2H PRN PRN Reason: Shortness of Breath Aspirin (Aspirin Chewable) 81 mg PO DAILY [facility] Last Admin: 08/17/16 09:25 Dose: 81 mg Atorvastatin Calcium (Lipitor) 10 mg PO DIN [facility] 234 [facility]S AT [facility] Carvedilol (Coreg) 12.5 mg PO DAILY [facility] 234 [facility]S [facility] Last Admin: 08/17/16 09:25 Dose: 12.5 mg Clopidogrel Bisulfate (Plavix) 75 mg PO DAILY [facility] 234 [facility]S [facility] Last Admin: 08/17/16 09:27 Dose: 75 mg Digoxin (Lanoxin) 0.25 mg PO 1400 [facility] 234 [facility]EDS [facility] Enoxaparin Sodium (Lovenox) 40 mg SC DAILY [facility] 234 [facility]S [facility] PRN Reason: Protocol Last Admin: 08/17/16 09:26 Dose: 40 mg Furosemide (Lasix) 40 mg IVP Q12 [facility] 234 [facility]S [facility] Last Admin: 08/17/16 09:26 Dose: 40 mg Vancomycin HCl (Vancomycin 1gm) 1 gm in 250 mls @ 167 mls/hr IVPB Q12H [facility]CLUDE 234 BEDS AT [facility] PRN Reason: Protocol Piperacillin Sod/Tazobactam Sod (Zosyn 4.5 Gm In Ns 100ml) 4.5 gm in 100 mls @ 200 mls/hr IVPB Q6 [facility] PRN Reason: Protocol Stop: 08/17/16 18:29 Insulin Human Lispro (Humalog Med) 0 units SC ACHS COUNTS INCLUDE 234 BEDS AT [facility] PRN Reason: Protocol Lisinopril (Zestril) 20 mg PO DIN [facility] Methylprednisolone (Solu-Medrol) 40 mg IV Q12 [facility]S [facility]CLUDE 234 BEDS AT [facility] Last Admin: 08/17/16 09:28 Dose: 40 mg Pantoprazole Sodium (Protonix Inj) 40 mg IVP DAILY [facility] 234 [facility]S [facility] Last Admin: 08/17/16 09:27 Dose: 40 mg - Labs Labs: 08/17/16 06:50 08/17/16 06:50 - Constitutional Appears: No Acute Distress - Head Exam Head Exam: ATRAUMATIC, NORMOCEPHALIC - Eye Exam Eye Exam: PERRL - ENT Exam ENT Exam: Mucous Membranes Moist - Respiratory Exam Respiratory Exam: Clear to Ausculation Bilateral - Cardiovascular Exam Cardiovascular Exam: REGULAR RHYTHM, +S1, +S2 - GI/Abdominal Exam GI & Abdominal Exam: Soft, Normal Bowel Sounds. absent: Distended, Tenderness - Extremities Exam Extremities Exam: absent: Calf Tenderness, Pedal Edema - Psychiatric Exam Psychiatric exam: Normal Mood Assessment and Plan - Assessment and Plan (Free Text) Assessment: 61 F with PMH COPD requiring intubations, CHF with EF 25-30%, NSTEMI, admitted to ICU for hypercapneic respiratory failure 2/2 likely COPD, which is now resolved. Pt initially requiring bipap, then switched to HFNC, tolerating well. Pt receiving duonebs, methylprednisolone, and IV abx. Will downgrade to med- surg. Plan: Neuro: AAox3. No mental status changes. Cardio: Normotensive, NSR HR 92. EF 25-30%. No peripheral edema. maintain MAP > 65 Continue home Coreg, Asa, statin, digoxin, lisinopril; dig level wnl trop neg x1. Pulm: Hypercapneic respiratory failure initially --> improved with bipap --> repeat ABG shows improved acidosis and hypercapnea resolved. Bipap->HFNC now. maintain SaO2 > 90%, aspiration precautions, head of bed to 30 degrees C/w nebs, methylprednisolone, IV abx GI: Diabetic diet. Renal: monitor and replete all electrolytes as needed ID: leukocytosis improving, c/w abx, lactate improved, 2.6 today. Continue to trend wbcs, lactate. Heme: Anemia with Hgb 9.9, baseline since Jan 2016 as per charting continue to monitor Endo: ISS. maintain euglycemia. Dispo: Pt to be downgraded to Med-surg. ICU, BIPAP for hypercapnic respiratory distress, IV abx for suspected pneumonia and IV diuresis for Protonix for GI ppx Lovenox 40mg SC for DVT ppx Code Status: Unknown, so Full Code Patient reviewed, and discussed with PGY2 and attending, Dr. Amado. Jay Cortez, PGY1 <Last Amado - Last Filed: 08/17/16 17:59> Objective - Vital Signs/Intake and Output Vital Signs (last 24 hours): Temp Pulse Resp BP Pulse Ox 98.4 F 78 20 140/62 100 08/17/16 16:00 08/17/16 17:41 08/17/16 16:00 08/17/16 17:41 08/17/16 16:00 - Medications Medications: Current Medications Albuterol/Ipratropium (Duoneb 3 Mg/0.5 Mg (3 Ml) Ud) 3 ml IH [id number] COUNTS INCLUDE 234 BEDS AT [facility] Last Admin: 08/17/16 15:45 Dose: Not Given Albuterol/Ipratropium (Duoneb 3 Mg/0.5 Mg (3 Ml) Ud) 3 ml IH Q2H PRN PRN Reason: Shortness of Breath Last Admin: 08/17/16 13:03 Dose: 3 ml Aspirin (Aspirin Chewable) 81 mg PO DAILY [facility] 234 [facility]S [facility] Last Admin: 08/17/16 09:25 Dose: 81 mg Atorvastatin Calcium (Lipitor) 10 mg PO DIN [facility] 234 [facility]S [facility] Last Admin: 08/17/16 17:41 Dose: 10 mg Carvedilol (Coreg) 12.5 mg PO DAILY [facility] 234 [facility]S [facility] Last Admin: 08/17/16 09:25 Dose: 12.5 mg Clopidogrel Bisulfate (Plavix) 75 mg PO DAILY [facility] 234 [facility]S [facility] Last Admin: 08/17/16 09:27 Dose: 75 mg Digoxin (Lanoxin) 0.25 mg PO 1400 [facility] 234 [facility]EDS [facility] Last Admin: 08/17/16 13:53 Dose: 0.25 mg Enoxaparin Sodium (Lovenox) 40 mg SC DAILY [facility] 234 [facility]S [facility] PRN Reason: Protocol Last Admin: 08/17/16 09:26 Dose: 40 mg Furosemide (Lasix) 40 mg IVP Q12 [facility]CLUDE 234 BEDS [facility] Last Admin: 08/17/16 09:26 Dose: 40 mg Vancomycin HCl (Vancomycin 1gm) 1 gm in 250 mls @ 167 mls/hr IVPB Q12H [facility] PRN Reason: Protocol Meropenem 1g/NS 100mL IVPB (Meropenem 1g/Ns 100ml Ivpb) 1 gm in 100 mls @ 100 mls/hr IVPB Q12 [facility] PRN Reason: Protocol Stop: 08/25/16 16:42 Last Admin: 08/17/16 17:40 Dose: 100 mls/hr Doxycycline Hyclate 100 mg/ (Sodium Chloride) 100 mls @ 100 mls/hr IVPB Q12 [facility] PRN Reason: Protocol Insulin Human Lispro (Humalog Med) 0 units SC ACHS [facility] PRN Reason: Protocol Last Admin: 08/17/16 16:49 Dose: 7 units Lisinopril (Zestril) 20 mg PO DIN [facility]CLUDE 234 BEDS AT [facility] Last Admin: 08/17/16 17:41 Dose: 20 mg Methylprednisolone (Solu-Medrol) 40 mg IV Q12 COUNTS [facility]CLUDE 234 BEDS AT [facility] Last Admin: 08/17/16 09:28 Dose: 40 mg Pantoprazole Sodium (Protonix Inj) 40 mg IVP DAILY [facility]CLUDE 234 BEDS AT [facility] Last Admin: 08/17/16 09:27 Dose: 40 mg - Labs Labs: 08/17/16 06:50 08/17/16 06:50 Attending/Attestation - Attestation I have personally seen and examined this patient.: Yes I have fully participated in the care of the patient.: Yes I have reviewed all pertinent clinical information, including history, physical exam and plan: Yes Notes (Text): 08/17/16 17:58 61 yo with severe copd, came with hypercapnic respiratory failure due to copd exacerbation. Substantially improved on BPAP, steroids taper and bronchodilators. HCRF resolved, would continue with bronchodilators, BPAP at night, steroid taper. DVT/GI prophylaxis ccm time 40 min
[2016-08-17] MEDS ORDERED: Piperacill/Tazo 4.5gm in NS 4.5 GM/100 ML BAG IVPB SCH (12:00)
[2016-08-17] MEDS: Insulin Lispro (humaLOG) MEDIUM Coverage SC SCH ×3 (12:16→22:25)
[2016-08-17] MEDS: Albuterol-Ipratrop 3 mg / 0.5 (3 ml) UD IH PRN (13:03)
--- NOTE | 2016-08-17 13:28 | CARD ---
APPROVED REPORT EKG Measurement Heart [id number] <Conclusion> Accelerated Junctional rhythm ASMI, age unknown STTW changes c/w ischemia
[2016-08-17] MEDS: Digoxin 250 mcg (0.25 mg) Tab PO SCH (13:53)
[2016-08-17] MEDS ORDERED: Piperacillin/Tazobact 3.375 gm 100 ML IVPB SCH (14:00)
[2016-08-17] MEDS: Meropenem 1g/NS 100mL IVPB 1 GM/100 ML PIGGYBACK IVPB SCH (17:40)
[2016-08-17] MEDS: Vancomycin 1gm in NS 250ml 1 GM/250 ML BAG IVPB SCH (18:25)
--- NOTE | 2016-08-17 21:39 | CP.PCM.PN ---
Subjective - Date & Time of Evaluation Date of Evaluation: 08/17/16 Time of Evaluation: 21:39 - Subjective Subjective: Patient was seen at bedside. Complains of chest tightness and sob for past half hour. After receiving sublingual nitroglycerin, chest tightness is relieved. Denies nausea, sweating, palpitations. 61 yearold white woman was admitted with sob, cough , phlegm, hypercapnic respiratory failure, leukocytosis, anemia. Has PMH of CAD, S/P Stenting,NSTEMI-Dec 27, CHF-EF 25-30%,COPD, PVD, former smoker. 176/84 Pulse ox 98% Later on ,pulse ox dropped to 87% for which oxygen was raised to 4L/min. And robitussin was ordered for cough. Objective - Vital Signs/Intake and Output Vital Signs (last 24 hours): Temp Pulse Resp BP Pulse Ox 98.4 F 78 20 140/62 100 08/17/16 16:00 08/17/16 17:41 08/17/16 16:00 08/17/16 17:41 08/17/16 16:00 - Medications Medications: Current Medications Albuterol/Ipratropium (Duoneb 3 Mg/0.5 Mg (3 Ml) Ud) 3 ml IH [id number] [facility] Last Admin: 08/17/16 20:40 Dose: 3 ml Albuterol/Ipratropium (Duoneb 3 Mg/0.5 Mg (3 Ml) Ud) 3 ml IH Q2H PRN PRN Reason: Shortness of Breath Last Admin: 08/17/16 13:03 Dose: 3 ml Aspirin (Aspirin Chewable) 81 mg PO DAILY [facility] Last Admin: 08/17/16 09:25 Dose: 81 mg Atorvastatin Calcium (Lipitor) 10 mg PO DIN [facility] Last Admin: 08/17/16 17:41 Dose: 10 mg Carvedilol (Coreg) 12.5 mg PO DAILY [facility] Last Admin: 08/17/16 09:25 Dose: 12.5 mg Clopidogrel Bisulfate (Plavix) 75 mg PO DAILY [facility] Last Admin: 08/17/16 09:27 Dose: 75 mg Digoxin (Lanoxin) 0.25 mg PO 1400 [facility] Last Admin: 08/17/16 13:53 Dose: 0.25 mg Enoxaparin Sodium (Lovenox) 40 mg SC DAILY [facility] PRN Reason: Protocol Last Admin: 08/17/16 09:26 Dose: 40 mg Furosemide (Lasix) 40 mg IVP Q12 [facility] Last Admin: 08/17/16 09:26 Dose: 40 mg Vancomycin HCl (Vancomycin 1gm) 1 gm in 250 mls @ 167 mls/hr IVPB Q12H [facility] PRN Reason: Protocol Last Admin: 08/17/16 18:25 Dose: 167 mls/hr Meropenem 1g/NS 100mL IVPB (Meropenem 1g/Ns 100ml Ivpb) 1 gm in 100 mls @ 100 mls/hr IVPB Q12 [facility] PRN Reason: Protocol Stop: 08/25/16 16:42 Last Admin: 08/17/16 17:40 Dose: 100 mls/hr Doxycycline Hyclate 100 mg/ (Sodium Chloride) 100 mls @ 100 mls/hr IVPB Q12 [facility] PRN Reason: Protocol Insulin Human Lispro (Humalog Med) 0 units SC ACHS [facility] PRN Reason: Protocol Last Admin: 08/17/16 16:49 Dose: 7 units Lisinopril (Zestril) 20 mg PO DIN [facility] Last Admin: 08/17/16 17:41 Dose: 20 mg Methylprednisolone (Solu-Medrol) 40 mg IV Q12 [facility] Last Admin: 08/17/16 09:28 Dose: 40 mg Pantoprazole Sodium (Protonix Inj) 40 mg IVP DAILY [facility] Last Admin: 08/17/16 09:27 Dose: 40 mg - Labs Labs: 08/17/16 06:50 08/17/16 06:50 Lab Studies 08/17/16 08/17/16 08/17/16 Range/Units 21:58 20:10 16:15 WBC (4.5-11.0) 10^3/ul RBC (3.5-6.1) 10^6/uL Hgb (12.0-16.0) gm/dL Hct (36.0-48.0) % MCV (80.0-105.0) fL MCH (25.0-35.0) pg MCHC (31.0-37.0) g/dl RDW (11.5-14.5) % Plt Count (120.0-450.0) 10^3/uL MPV (7.0-11.0) fl Neutrophils % (Manual) (50.0-70.0) % Band Neutrophils % (0-2) % Lymphocytes % (Manual) (22.0-35.0) % Atypical Lymphs % (0.0-0.0) % Monocytes % (Manual) (1.0-6.0) % Eosinophils % (Manual) (0.0-3.0) % Platelet Evaluation (NORMAL) Large Platelets Ovalocytes pCO2 (35-45) mm/Hg pO2 34 (80-100) mm/Hg HCO3 (21-28) mmol/L ABG pH (7.35-7.45) ABG Total CO2 (22-28) mmol.L ABG O2 Saturation (95-98) % ABG O2 Content (15-23) ML/dl ABG Base Excess (-2.0-3.0) mmol/L ABG Hemoglobin (11.7-17.4) g/dL ABG Carboxyhemoglobin (0.5-1.5) % POC ABG HHb (Measured) (0-5) % ABG Methemoglobin (0.0-3.0) % ABG O2 Capacity (16-24) mL/dl ABG Potassium (3.6-5.2) mmol/L VBG pH 7.34 (7.32-7.43) VBG pCO2 54.0 (40-60) VBG HCO3 29.1 H (21-28) mmol/l VBG Total CO2 30.8 H (22-28) mmol.L VBG O2 Sat (Calc) 69.7 H (40-65) % VBG Base Excess 2.7 H (0.0-2.0) mmol/L VBG Potassium 4.3 (3.6-5.2) mmol/L Hgb O2 Saturation (95.0-98.0) % Sodium 136.0 (132-148) mmol/L Chloride 100.0 (98-107) mmol/L Glucose 375 H (65-105) mg/dl Lactate 2.5 H (0.7-2.1) mmol/L Mechanical Rate FiO2 21.0 % Inspiratory BiPAP Potassium (3.6-5.0) mmol/L Carbon Dioxide (21-33) mmol/L Anion Gap (10-20) BUN (7-21) mg/dL Creatinine (0.5-1.4) mg/dL Est GFR ( Amer) Est GFR (Non-Af Amer) POC Glucose (mg/dL) 340 H 337 H (65-110) mg/dL Random Glucose (70-110) mg/dL Hemoglobin A1c (4.2-6.5) % Lactic Acid (0.7-2.1) mmol/L Calcium (8.4-10.5) mg/dL Phosphorus (2.5-4.5) mg/dL Magnesium (1.7-2.2) mg/dL Total Bilirubin (0.2-1.3) mg/dL AST (15-39) U/L ALT (7-56) U/L Alkaline Phosphatase (38-133) U/L Lactate Dehydrogenase (333-699) U/L Total Creatine Kinase (35-230) U/L Troponin I ng/mL NT-Pro-B Natriuret Pep (0-450) pg/mL Total Protein (5.8-8.3) g/dL Albumin (3.0-4.8) g/dL Globulin gm/dL Albumin/Globulin Ratio (1.1-1.8) Triglycerides (35-160) mg/dL Cholesterol (130-200) mg/dL LDL Cholesterol Direct (0-129) mg/dL HDL Cholesterol (29-60) mg/dL Free T4 (0.78-2.19) ng/dL Thyroxine (T4) (5.5-11.0) ug/dL TSH 3rd Generation (0.46-4.68) mIU/mL Arterial Blood Potassium (3.6-5.2) mmol/L Venous Blood Potassium 4.3 (3.6-5.2) mmol/L Urine Color (YELLOW) Urine Appearance (CLEAR) Urine pH (4.7-8.0) Ur Specific Tok (1.005-1.035) Urine Protein (<30 mg/dL) mg/dL Urine Glucose (UA) (NEGATIVE) mg/dL Urine Ketones (NEGATIVE) mg/dL Urine Blood (NEGATIVE) Urine Nitrate (NEGATIVE) Urine Bilirubin (NEGATIVE) Urine Urobilinogen (<1 E.U./dL) E.U./dL Ur Leukocyte Esterase (NEGATIVE) Manny/uL Urine RBC (0-2) /hpf Urine WBC (0-6) /hpf Ur Epithelial Cells (0-5) /hpf Hyaline Casts /hpf Digoxin (0.8-2.0) ng/mL Blood Type Antibody Screen BBK History Checked 08/17/16 08/17/16 08/17/16 Range/Units 12:14 10:40 09:35 WBC (4.5-11.0) 10^3/ul RBC (3.5-6.1) 10^6/uL Hgb (12.0-16.0) gm/dL Hct (36.0-48.0) % MCV (80.0-105.0) fL MCH (25.0-35.0) pg MCHC (31.0-37.0) g/dl RDW (11.5-14.5) % Plt Count (120.0-450.0) 10^3/uL MPV (7.0-11.0) fl Neutrophils % (Manual) (50.0-70.0) % Band Neutrophils % (0-2) % Lymphocytes % (Manual) (22.0-35.0) % Atypical Lymphs % (0.0-0.0) % Monocytes % (Manual) (1.0-6.0) % Eosinophils % (Manual) (0.0-3.0) % Platelet Evaluation (NORMAL) Large Platelets Ovalocytes pCO2 42 (35-45) mm/Hg pO2 37 210.0 H (80-100) mm/Hg HCO3 26.6 (21-28) mmol/L ABG pH 7.41 (7.35-7.45) ABG Total CO2 27.9 (22-28) mmol.L ABG O2 Saturation 99.5 H (95-98) % ABG O2 Content 10.6 L (15-23) ML/dl ABG Base Excess 1.8 (-2.0-3.0) mmol/L ABG Hemoglobin 7.3 L (11.7-17.4) g/dL ABG Carboxyhemoglobin 1.2 (0.5-1.5) % POC ABG HHb (Measured) 0.5 (0-5) % ABG Methemoglobin 0.5 (0.0-3.0) % ABG O2 Capacity 10.7 L (16-24) mL/dl ABG Potassium (3.6-5.2) mmol/L VBG pH 7.36 (7.32-7.43) VBG pCO2 55.0 (40-60) VBG HCO3 31.1 H (21-28) mmol/l VBG Total CO2 32.8 H (22-28) mmol.L VBG O2 Sat (Calc) 78.5 H (40-65) % VBG Base Excess 4.9 H (0.0-2.0) mmol/L VBG Potassium 4.2 (3.6-5.2) mmol/L Hgb O2 Saturation 97.8 (95.0-98.0) % Sodium 136.0 (132-148) mmol/L Chloride 103.0 (98-107) mmol/L Glucose 276 H (65-105) mg/dl Lactate 2.6 H (0.7-2.1) mmol/L Mechanical Rate FiO2 21.0 40.0 % Inspiratory BiPAP Potassium (3.6-5.0) mmol/L Carbon Dioxide (21-33) mmol/L Anion Gap (10-20) BUN (7-21) mg/dL Creatinine (0.5-1.4) mg/dL Est GFR ( Amer) Est GFR (Non-Af Amer) POC Glucose (mg/dL) 360 H (65-110) mg/dL Random Glucose (70-110) mg/dL Hemoglobin A1c (4.2-6.5) % Lactic Acid (0.7-2.1) mmol/L Calcium (8.4-10.5) mg/dL Phosphorus (2.5-4.5) mg/dL Magnesium (1.7-2.2) mg/dL Total Bilirubin (0.2-1.3) mg/dL AST (15-39) U/L ALT (7-56) U/L Alkaline Phosphatase (38-133) U/L Lactate Dehydrogenase (333-699) U/L Total Creatine Kinase (35-230) U/L Troponin I ng/mL NT-Pro-B Natriuret Pep (0-450) pg/mL Total Protein (5.8-8.3) g/dL Albumin (3.0-4.8) g/dL Globulin gm/dL Albumin/Globulin Ratio (1.1-1.8) Triglycerides (35-160) mg/dL Cholesterol (130-200) mg/dL LDL Cholesterol Direct (0-129) mg/dL HDL Cholesterol (29-60) mg/dL Free T4 (0.78-2.19) ng/dL Thyroxine (T4) (5.5-11.0) ug/dL TSH 3rd Generation (0.46-4.68) mIU/mL Arterial Blood Potassium (3.6-5.2) mmol/L Venous Blood Potassium 4.2 (3.6-5.2) mmol/L Urine Color (YELLOW) Urine Appearance (CLEAR) Urine pH (4.7-8.0) Ur Specific Tok (1.005-1.035) Urine Protein (<30 mg/dL) mg/dL Urine Glucose (UA) (NEGATIVE) mg/dL Urine Ketones (NEGATIVE) mg/dL Urine Blood (NEGATIVE) Urine Nitrate (NEGATIVE) Urine Bilirubin (NEGATIVE) Urine Urobilinogen (<1 E.U./dL) E.U./dL Ur Leukocyte Esterase (NEGATIVE) Manny/uL Urine RBC (0-2) /hpf Urine WBC (0-6) /hpf Ur Epithelial Cells (0-5) /hpf Hyaline Casts /hpf Digoxin (0.8-2.0) ng/mL Blood Type Antibody Screen BBK History Checked 08/17/16 08/17/16 08/17/16 Range/Units 07:52 06:50 06:50 WBC 22.6 H (4.5-11.0) 10^3/ul RBC 3.29 L (3.5-6.1) 10^6/uL Hgb 8.7 L (12.0-16.0) gm/dL Hct 29.1 L (36.0-48.0) % MCV 88.4 (80.0-105.0) fL MCH 26.4 (25.0-35.0) pg MCHC 29.9 L (31.0-37.0) g/dl RDW 15.6 H (11.5-14.5) % Plt Count 389 (120.0-450.0) 10^3/uL MPV 9.4 (7.0-11.0) fl Neutrophils % (Manual) 89 H (50.0-70.0) % Band Neutrophils % 7 H (0-2) % Lymphocytes % (Manual) 3 L (22.0-35.0) % Atypical Lymphs % 0 (0.0-0.0) % Monocytes % (Manual) 0 L (1.0-6.0) % Eosinophils % (Manual) 1 (0.0-3.0) % Platelet Evaluation Normal (NORMAL) Large Platelets Present Ovalocytes Slight pCO2 (35-45) mm/Hg pO2 (80-100) mm/Hg HCO3 (21-28) mmol/L ABG pH (7.35-7.45) ABG Total CO2 (22-28) mmol.L ABG O2 Saturation (95-98) % ABG O2 Content (15-23) ML/dl ABG Base Excess (-2.0-3.0) mmol/L ABG Hemoglobin (11.7-17.4) g/dL ABG Carboxyhemoglobin (0.5-1.5) % POC ABG HHb (Measured) (0-5) % ABG Methemoglobin (0.0-3.0) % ABG O2 Capacity (16-24) mL/dl ABG Potassium (3.6-5.2) mmol/L VBG pH (7.32-7.43) VBG pCO2 (40-60) VBG HCO3 (21-28) mmol/l VBG Total CO2 (22-28) mmol.L VBG O2 Sat (Calc) (40-65) % VBG Base Excess (0.0-2.0) mmol/L VBG Potassium (3.6-5.2) mmol/L Hgb O2 Saturation (95.0-98.0) % Sodium (132-148) mmol/L Chloride (98-107) mmol/L Glucose (65-105) mg/dl Lactate (0.7-2.1) mmol/L Mechanical Rate FiO2 % Inspiratory BiPAP Potassium (3.6-5.0) mmol/L Carbon Dioxide (21-33) mmol/L Anion Gap (10-20) BUN (7-21) mg/dL Creatinine (0.5-1.4) mg/dL Est GFR ( Amer) Est GFR (Non-Af Amer) POC Glucose (mg/dL) 146 H (65-110) mg/dL Random Glucose (70-110) mg/dL Hemoglobin A1c (4.2-6.5) % Lactic Acid 2.9 H (0.7-2.1) mmol/L Calcium (8.4-10.5) mg/dL Phosphorus (2.5-4.5) mg/dL Magnesium (1.7-2.2) mg/dL Total Bilirubin (0.2-1.3) mg/dL AST (15-39) U/L ALT (7-56) U/L Alkaline Phosphatase (38-133) U/L Lactate Dehydrogenase (333-699) U/L Total Creatine Kinase (35-230) U/L Troponin I ng/mL NT-Pro-B Natriuret Pep (0-450) pg/mL Total Protein (5.8-8.3) g/dL Albumin (3.0-4.8) g/dL Globulin gm/dL Albumin/Globulin Ratio (1.1-1.8) Triglycerides (35-160) mg/dL Cholesterol (130-200) mg/dL LDL Cholesterol Direct (0-129) mg/dL HDL Cholesterol (29-60) mg/dL Free T4 (0.78-2.19) ng/dL Thyroxine (T4) (5.5-11.0) ug/dL TSH 3rd Generation (0.46-4.68) mIU/mL Arterial Blood Potassium (3.6-5.2) mmol/L Venous Blood Potassium (3.6-5.2) mmol/L Urine Color (YELLOW) Urine Appearance (CLEAR) Urine pH (4.7-8.0) Ur Specific Tok (1.005-1.035) Urine Protein (<30 mg/dL) mg/dL Urine Glucose (UA) (NEGATIVE) mg/dL Urine Ketones (NEGATIVE) mg/dL Urine Blood (NEGATIVE) Urine Nitrate (NEGATIVE) Urine Bilirubin (NEGATIVE) Urine Urobilinogen (<1 E.U./dL) E.U./dL Ur Leukocyte Esterase (NEGATIVE) Manny/uL Urine RBC (0-2) /hpf Urine WBC (0-6) /hpf Ur Epithelial Cells (0-5) /hpf Hyaline Casts /hpf Digoxin (0.8-2.0) ng/mL Blood Type Antibody Screen BBK History Checked 08/17/16 08/17/16 08/17/16 Range/Units 06:50 06:50 06:50 WBC (4.5-11.0) 10^3/ul RBC (3.5-6.1) 10^6/uL Hgb (12.0-16.0) gm/dL Hct (36.0-48.0) % MCV (80.0-105.0) fL MCH (25.0-35.0) pg MCHC (31.0-37.0) g/dl RDW (11.5-14.5) % Plt Count (120.0-450.0) 10^3/uL MPV (7.0-11.0) fl Neutrophils % (Manual) (50.0-70.0) % Band Neutrophils % (0-2) % Lymphocytes % (Manual) (22.0-35.0) % Atypical Lymphs % (0.0-0.0) % Monocytes % (Manual) (1.0-6.0) % Eosinophils % (Manual) (0.0-3.0) % Platelet Evaluation (NORMAL) Large Platelets Ovalocytes pCO2 (35-45) mm/Hg pO2 (80-100) mm/Hg HCO3 (21-28) mmol/L ABG pH (7.35-7.45) ABG Total CO2 (22-28) mmol.L ABG O2 Saturation (95-98) % ABG O2 Content (15-23) ML/dl ABG Base Excess (-2.0-3.0) mmol/L ABG Hemoglobin (11.7-17.4) g/dL ABG Carboxyhemoglobin (0.5-1.5) % POC ABG HHb (Measured) (0-5) % ABG Methemoglobin (0.0-3.0) % ABG O2 Capacity (16-24) mL/dl ABG Potassium (3.6-5.2) mmol/L VBG pH (7.32-7.43) VBG pCO2 (40-60) VBG HCO3 (21-28) mmol/l VBG Total CO2 (22-28) mmol.L VBG O2 Sat (Calc) (40-65) % VBG Base Excess (0.0-2.0) mmol/L VBG Potassium (3.6-5.2) mmol/L Hgb O2 Saturation (95.0-98.0) % Sodium 138 (132-148) mmol/L Chloride 99 (98-107) mmol/L Glucose (65-105) mg/dl Lactate (0.7-2.1) mmol/L Mechanical Rate FiO2 % Inspiratory BiPAP Potassium 4.5 (3.6-5.0) mmol/L Carbon Dioxide 29 (21-33) mmol/L Anion Gap 15 (10-20) BUN 19 (7-21) mg/dL Creatinine 1.1 (0.5-1.4) mg/dL Est GFR ( Amer) > 60 Est GFR (Non-Af Amer) 50 POC Glucose (mg/dL) (65-110) mg/dL Random Glucose 187 H (70-110) mg/dL Hemoglobin A1c 6.3 (4.2-6.5) % Lactic Acid (0.7-2.1) mmol/L Calcium 9.0 (8.4-10.5) mg/dL Phosphorus 4.9 H (2.5-4.5) mg/dL Magnesium 2.0 (1.7-2.2) mg/dL Total Bilirubin 0.4 (0.2-1.3) mg/dL AST 58 H (15-39) U/L ALT 62 H (7-56) U/L Alkaline Phosphatase 63 (38-133) U/L Lactate Dehydrogenase (333-699) U/L Total Creatine Kinase (35-230) U/L Troponin I ng/mL NT-Pro-B Natriuret Pep (0-450) pg/mL Total Protein 6.4 (5.8-8.3) g/dL Albumin 3.7 (3.0-4.8) g/dL Globulin 2.7 gm/dL Albumin/Globulin Ratio 1.4 (1.1-1.8) Triglycerides 207 H (35-160) mg/dL Cholesterol 124 L (130-200) mg/dL LDL Cholesterol Direct 42 (0-129) mg/dL HDL Cholesterol 41 (29-60) mg/dL Free T4 1.47 (0.78-2.19) ng/dL Thyroxine (T4) 9.2 (5.5-11.0) ug/dL TSH 3rd Generation 0.59 (0.46-4.68) mIU/mL Arterial Blood Potassium (3.6-5.2) mmol/L Venous Blood Potassium (3.6-5.2) mmol/L Urine Color (YELLOW) Urine Appearance (CLEAR) Urine pH (4.7-8.0) Ur Specific Tok (1.005-1.035) Urine Protein (<30 mg/dL) mg/dL Urine Glucose (UA) (NEGATIVE) mg/dL Urine Ketones (NEGATIVE) mg/dL Urine Blood (NEGATIVE) Urine Nitrate (NEGATIVE) Urine Bilirubin (NEGATIVE) Urine Urobilinogen (<1 E.U./dL) E.U./dL Ur Leukocyte Esterase (NEGATIVE) Manny/uL Urine RBC (0-2) /hpf Urine WBC (0-6) /hpf Ur Epithelial Cells (0-5) /hpf Hyaline Casts /hpf Digoxin (0.8-2.0) ng/mL Blood Type Antibody Screen BBK History Checked 08/17/16 08/17/16 08/17/16 Range/Units 05:30 04:13 04:11 WBC (4.5-11.0) 10^3/ul RBC (3.5-6.1) 10^6/uL Hgb (12.0-16.0) gm/dL Hct (36.0-48.0) % MCV (80.0-105.0) fL MCH (25.0-35.0) pg MCHC (31.0-37.0) g/dl RDW (11.5-14.5) % Plt Count (120.0-450.0) 10^3/uL MPV (7.0-11.0) fl Neutrophils % (Manual) (50.0-70.0) % Band Neutrophils % (0-2) % Lymphocytes % (Manual) (22.0-35.0) % Atypical Lymphs % (0.0-0.0) % Monocytes % (Manual) (1.0-6.0) % Eosinophils % (Manual) (0.0-3.0) % Platelet Evaluation (NORMAL) Large Platelets Ovalocytes pCO2 (35-45) mm/Hg pO2 (80-100) mm/Hg HCO3 (21-28) mmol/L ABG pH (7.35-7.45) ABG Total CO2 (22-28) mmol.L ABG O2 Saturation (95-98) % ABG O2 Content (15-23) ML/dl ABG Base Excess (-2.0-3.0) mmol/L ABG Hemoglobin (11.7-17.4) g/dL ABG Carboxyhemoglobin (0.5-1.5) % POC ABG HHb (Measured) (0-5) % ABG Methemoglobin (0.0-3.0) % ABG O2 Capacity (16-24) mL/dl ABG Potassium (3.6-5.2) mmol/L VBG pH (7.32-7.43) VBG pCO2 (40-60) VBG HCO3 (21-28) mmol/l VBG Total CO2 (22-28) mmol.L VBG O2 Sat (Calc) (40-65) % VBG Base Excess (0.0-2.0) mmol/L VBG Potassium (3.6-5.2) mmol/L Hgb O2 Saturation (95.0-98.0) % Sodium (132-148) mmol/L Chloride (98-107) mmol/L Glucose (65-105) mg/dl Lactate (0.7-2.1) mmol/L Mechanical Rate FiO2 % Inspiratory BiPAP Potassium (3.6-5.0) mmol/L Carbon Dioxide (21-33) mmol/L Anion Gap (10-20) BUN (7-21) mg/dL Creatinine (0.5-1.4) mg/dL Est GFR ( Amer) Est GFR (Non-Af Amer) POC Glucose (mg/dL) (65-110) mg/dL Random Glucose (70-110) mg/dL Hemoglobin A1c (4.2-6.5) % Lactic Acid (0.7-2.1) mmol/L Calcium (8.4-10.5) mg/dL Phosphorus 6.6 H (2.5-4.5) mg/dL Magnesium (1.7-2.2) mg/dL Total Bilirubin (0.2-1.3) mg/dL AST (15-39) U/L ALT (7-56) U/L Alkaline Phosphatase (38-133) U/L Lactate Dehydrogenase (333-699) U/L Total Creatine Kinase (35-230) U/L Troponin I ng/mL NT-Pro-B Natriuret Pep (0-450) pg/mL Total Protein (5.8-8.3) g/dL Albumin (3.0-4.8) g/dL Globulin gm/dL Albumin/Globulin Ratio (1.1-1.8) Triglycerides (35-160) mg/dL Cholesterol (130-200) mg/dL LDL Cholesterol Direct (0-129) mg/dL HDL Cholesterol (29-60) mg/dL Free T4 (0.78-2.19) ng/dL Thyroxine (T4) (5.5-11.0) ug/dL TSH 3rd Generation (0.46-4.68) mIU/mL Arterial Blood Potassium (3.6-5.2) mmol/L Venous Blood Potassium (3.6-5.2) mmol/L Urine Color Yellow (YELLOW) Urine Appearance Clear (CLEAR) Urine pH 6.0 (4.7-8.0) Ur Specific Tok 1.025 (1.005-1.035) Urine Protein 100 H (<30 mg/dL) mg/dL Urine Glucose (UA) Negative (NEGATIVE) mg/dL Urine Ketones Negative (NEGATIVE) mg/dL Urine Blood Trace-intact H (NEGATIVE) Urine Nitrate Negative (NEGATIVE) Urine Bilirubin Negative (NEGATIVE) Urine Urobilinogen 0.2 (<1 E.U./dL) E.U./dL Ur Leukocyte Esterase Trace H (NEGATIVE) Manny/uL Urine RBC 0 - 2 (0-2) /hpf Urine WBC 0 - 2 (0-6) /hpf Ur Epithelial Cells 0 - 2 (0-5) /hpf Hyaline Casts 0 - 2 /hpf Digoxin (0.8-2.0) ng/mL Blood Type O POSITIVE Antibody Screen Negative BBK History Checked Patient has bt 08/17/16 08/17/16 08/17/16 Range/Units 04:11 04:11 04:11 WBC (4.5-11.0) 10^3/ul RBC (3.5-6.1) 10^6/uL Hgb (12.0-16.0) gm/dL Hct (36.0-48.0) % MCV (80.0-105.0) fL MCH (25.0-35.0) pg MCHC (31.0-37.0) g/dl RDW (11.5-14.5) % Plt Count (120.0-450.0) 10^3/uL MPV (7.0-11.0) fl Neutrophils % (Manual) (50.0-70.0) % Band Neutrophils % (0-2) % Lymphocytes % (Manual) (22.0-35.0) % Atypical Lymphs % (0.0-0.0) % Monocytes % (Manual) (1.0-6.0) % Eosinophils % (Manual) (0.0-3.0) % Platelet Evaluation (NORMAL) Large Platelets Ovalocytes pCO2 (35-45) mm/Hg pO2 76 H (80-100) mm/Hg HCO3 (21-28) mmol/L ABG pH (7.35-7.45) ABG Total CO2 (22-28) mmol.L ABG O2 Saturation (95-98) % ABG O2 Content (15-23) ML/dl ABG Base Excess (-2.0-3.0) mmol/L ABG Hemoglobin (11.7-17.4) g/dL ABG Carboxyhemoglobin (0.5-1.5) % POC ABG HHb (Measured) (0-5) % ABG Methemoglobin (0.0-3.0) % ABG O2 Capacity (16-24) mL/dl ABG Potassium (3.6-5.2) mmol/L VBG pH 7.07 L* (7.32-7.43) VBG pCO2 89.0 H* (40-60) VBG HCO3 25.8 (21-28) mmol/l VBG Total CO2 28.5 H (22-28) mmol.L VBG O2 Sat (Calc) 92.8 H (40-65) % VBG Base Excess -6.4 L (0.0-2.0) mmol/L VBG Potassium 4.7 (3.6-5.2) mmol/L Hgb O2 Saturation (95.0-98.0) % Sodium 137.0 137 (132-148) mmol/L Chloride 101.0 98 (98-107) mmol/L Glucose 340 H (65-105) mg/dl Lactate 6.0 H* (0.7-2.1) mmol/L Mechanical Rate FiO2 21.0 % Inspiratory BiPAP Potassium 4.3 (3.6-5.0) mmol/L Carbon Dioxide 25 (21-33) mmol/L Anion Gap 18 (10-20) BUN 16 (7-21) mg/dL Creatinine 1.1 (0.5-1.4) mg/dL Est GFR ( Amer) > 60 Est GFR (Non-Af Amer) 50 POC Glucose (mg/dL) (65-110) mg/dL Random Glucose 325 H* D (70-110) mg/dL Hemoglobin A1c (4.2-6.5) % Lactic Acid (0.7-2.1) mmol/L Calcium 9.0 (8.4-10.5) mg/dL Phosphorus (2.5-4.5) mg/dL Magnesium 2.1 (1.7-2.2) mg/dL Total Bilirubin 0.6 (0.2-1.3) mg/dL AST 48 H (15-39) U/L ALT 51 (7-56) U/L Alkaline Phosphatase 79 (38-133) U/L Lactate Dehydrogenase 458 (333-699) U/L Total Creatine Kinase 23 L (35-230) U/L Troponin I 0.05 D ng/mL NT-Pro-B Natriuret Pep 7630 H (0-450) pg/mL Total Protein 7.3 (5.8-8.3) g/dL Albumin 4.2 (3.0-4.8) g/dL Globulin 3.1 gm/dL Albumin/Globulin Ratio 1.4 (1.1-1.8) Triglycerides (35-160) mg/dL Cholesterol (130-200) mg/dL LDL Cholesterol Direct (0-129) mg/dL HDL Cholesterol (29-60) mg/dL Free T4 (0.78-2.19) ng/dL Thyroxine (T4) (5.5-11.0) ug/dL TSH 3rd Generation (0.46-4.68) mIU/mL Arterial Blood Potassium (3.6-5.2) mmol/L Venous Blood Potassium 4.7 (3.6-5.2) mmol/L Urine Color (YELLOW) Urine Appearance (CLEAR) Urine pH (4.7-8.0) Ur Specific Tok (1.005-1.035) Urine Protein (<30 mg/dL) mg/dL Urine Glucose (UA) (NEGATIVE) mg/dL Urine Ketones (NEGATIVE) mg/dL Urine Blood (NEGATIVE) Urine Nitrate (NEGATIVE) Urine Bilirubin (NEGATIVE) Urine Urobilinogen (<1 E.U./dL) E.U./dL Ur Leukocyte Esterase (NEGATIVE) Manny/uL Urine RBC (0-2) /hpf Urine WBC (0-6) /hpf Ur Epithelial Cells (0-5) /hpf Hyaline Casts /hpf Digoxin 1.3 (0.8-2.0) ng/mL Blood Type Antibody Screen BBK History Checked 08/17/16 08/17/16 08/17/16 Range/Units 04:11 04:08 04:07 WBC 27.9 H* D (4.5-11.0) 10^3/ul RBC 3.68 (3.5-6.1) 10^6/uL Hgb 9.9 L (12.0-16.0) gm/dL Hct 33.2 L (36.0-48.0) % MCV 90.2 (80.0-105.0) fL MCH 26.9 (25.0-35.0) pg MCHC 29.8 L (31.0-37.0) g/dl RDW 15.9 H (11.5-14.5) % Plt Count 577 H (120.0-450.0) 10^3/uL MPV 10.0 (7.0-11.0) fl Neutrophils % (Manual) 70 (50.0-70.0) % Band Neutrophils % 4 H (0-2) % Lymphocytes % (Manual) 17 L (22.0-35.0) % Atypical Lymphs % (0.0-0.0) % Monocytes % (Manual) 5 (1.0-6.0) % Eosinophils % (Manual) 4 H (0.0-3.0) % Platelet Evaluation Slightly high (NORMAL) Large Platelets Ovalocytes pCO2 74 H* (35-45) mm/Hg pO2 287.0 H (80-100) mm/Hg HCO3 25.2 (21-28) mmol/L ABG pH 7.14 L* (7.35-7.45) ABG Total CO2 27.5 (22-28) mmol.L ABG O2 Saturation 99.9 H (95-98) % ABG O2 Content (15-23) ML/dl ABG Base Excess -4.4 L (-2.0-3.0) mmol/L ABG Hemoglobin (11.7-17.4) g/dL ABG Carboxyhemoglobin (0.5-1.5) % POC ABG HHb (Measured) (0-5) % ABG Methemoglobin (0.0-3.0) % ABG O2 Capacity (16-24) mL/dl ABG Potassium 4.6 (3.6-5.2) mmol/L VBG pH (7.32-7.43) VBG pCO2 (40-60) VBG HCO3 (21-28) mmol/l VBG Total CO2 (22-28) mmol.L VBG O2 Sat (Calc) (40-65) % VBG Base Excess (0.0-2.0) mmol/L VBG Potassium (3.6-5.2) mmol/L Hgb O2 Saturation (95.0-98.0) % Sodium 136.0 (132-148) mmol/L Chloride 104.0 (98-107) mmol/L Glucose 356 H (65-105) mg/dl Lactate 4.1 H* (0.7-2.1) mmol/L Mechanical Rate 16 FiO2 100.0 % Inspiratory BiPAP 14 Potassium (3.6-5.0) mmol/L Carbon Dioxide (21-33) mmol/L Anion Gap (10-20) BUN (7-21) mg/dL Creatinine (0.5-1.4) mg/dL Est GFR ( Amer) Est GFR (Non-Af Amer) POC Glucose (mg/dL) 323 H (65-110) mg/dL Random Glucose (70-110) mg/dL Hemoglobin A1c (4.2-6.5) % Lactic Acid (0.7-2.1) mmol/L Calcium (8.4-10.5) mg/dL Phosphorus (2.5-4.5) mg/dL Magnesium (1.7-2.2) mg/dL Total Bilirubin (0.2-1.3) mg/dL AST (15-39) U/L ALT (7-56) U/L Alkaline Phosphatase (38-133) U/L Lactate Dehydrogenase (333-699) U/L Total Creatine Kinase (35-230) U/L Troponin I ng/mL NT-Pro-B Natriuret Pep (0-450) pg/mL Total Protein (5.8-8.3) g/dL Albumin (3.0-4.8) g/dL Globulin gm/dL Albumin/Globulin Ratio (1.1-1.8) Triglycerides (35-160) mg/dL Cholesterol (130-200) mg/dL LDL Cholesterol Direct (0-129) mg/dL HDL Cholesterol (29-60) mg/dL Free T4 (0.78-2.19) ng/dL Thyroxine (T4) (5.5-11.0) ug/dL TSH 3rd Generation (0.46-4.68) mIU/mL Arterial Blood Potassium 4.6 (3.6-5.2) mmol/L Venous Blood Potassium (3.6-5.2) mmol/L Urine Color (YELLOW) Urine Appearance (CLEAR) Urine pH (4.7-8.0) Ur Specific Tok (1.005-1.035) Urine Protein (<30 mg/dL) mg/dL Urine Glucose (UA) (NEGATIVE) mg/dL Urine Ketones (NEGATIVE) mg/dL Urine Blood (NEGATIVE) Urine Nitrate (NEGATIVE) Urine Bilirubin (NEGATIVE) Urine Urobilinogen (<1 E.U./dL) E.U./dL Ur Leukocyte Esterase (NEGATIVE) Manny/uL Urine RBC (0-2) /hpf Urine WBC (0-6) /hpf Ur Epithelial Cells (0-5) /hpf Hyaline Casts /hpf Digoxin (0.8-2.0) ng/mL Blood Type Antibody Screen BBK History Checked - Constitutional Appears: Well, No Acute Distress - Head Exam Head Exam: ATRAUMATIC, NORMAL INSPECTION, NORMOCEPHALIC - Eye Exam Eye Exam: Normal appearance - ENT Exam ENT Exam: Normal External Ear Exam - Neck Exam Neck Exam: Normal Inspection - Respiratory Exam Respiratory Exam: Clear to Ausculation Bilateral, NORMAL BREATHING PATTERN. absent: Accessory Muscle Use, Chest Wall Tenderness, Rales, Rhonchi, Wheezes, Respiratory Distress, Stridor - Cardiovascular Exam Cardiovascular Exam: Tachycardia, REGULAR RHYTHM. absent: JVD - GI/Abdominal Exam GI & Abdominal Exam: Normal Bowel Sounds. absent: Bruit, Distended - Rectal Exam Rectal Exam: Deferred - Exam Additional comments: Above deferred. - Extremities Exam Extremities Exam: Normal Inspection - Back Exam Back Exam: NORMAL INSPECTION - Neurological Exam Neurological Exam: Alert, Oriented x3 - Psychiatric Exam Psychiatric exam: Normal Affect, Normal Mood - Skin Skin Exam: Normal Color Assessment and Plan - Assessment and Plan (Free Text) Assessment: SOB. Chest tightness. Elevated troponin. CHF. COPD. PVD. Former smoker. Leukocytosis. Anemia. Plan: EKG---------------->New lateral wall ischemia changes, sinus tachycardia. Troponin----> 0.71 up for 0.05. Sublingual NTG. After one SL NTG 0.4 mg , pain subsided. Increase oxygen to 4 L/min by nasal canula. Spoke to , . 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 12:13 Spoke to .
[2016-08-17 22:29] LABS: VENOUS BLOOD GAS BASE EXCESS 2.7 mmol/L (0.0-2.0); VENOUS BLOOD GAS PO2 34 mm/Hg (30-55); VENOUS BLOOD PH 7.34 (7.32-7.43)
[2016-08-17] MEDS ORDERED: guaiFENesin-Codeine 100-10mg/5ml Syrup (5 ml) UD PO PRN (22:36)
[2016-08-17] MEDS ORDERED: Enoxaparin 60 mg Syringe SC STA (23:20)
[2016-08-18] MEDS: guaiFENesin DM 100 mg-10 mg/5 ml UD PO PRN ×4 (01:41→22:18)
[2016-08-18 04:33] LABS: VENOUS BLOOD GAS BASE EXCESS 5.1 mmol/L (0.0-2.0); VENOUS BLOOD GAS PO2 28 mm/Hg (30-55); VENOUS BLOOD PH 7.37 (7.32-7.43)
[2016-08-18] MEDS: Albuterol-Ipratrop 3 mg / 0.5 (3 ml) UD IH SCH ×4 (04:40→21:24)
[2016-08-18 04:55] LABS: HEMOGLOBIN 8.4 gm/dL (12.0-16.0); MEAN CELL VOLUME 88.3 fL (80.0-105.0); MEAN CORPUSCULAR HEMOGLOBIN 26.6 pg (25.0-35.0); MEAN CORPUSCULAR HGB CONC 30.1 g/dl (31.0-37.0); MEAN PLATELET VOLUME 10.3 fl (7.0-11.0); PLATELET COUNT 350 10^3/uL (120.0-450.0); RBC 3.16 10^6/uL (3.5-6.1); RED CELL DISTRIBUTION WIDTH 15.4 % (11.5-14.5); WHITE BLOOD COUNT 11.8 10^3/ul (4.5-11.0)
[2016-08-18 04:56] LABS: BASO # 0.03 K/mm3 (0.0-2.0); BASO % 0.3 % (0.0-3.0); EOS % 0.1 % (1.5-5.0); GRAN % 90.1 % (50.0-68.0); LYMPH % 8.1 % (22.0-35.0); MONO # 0.2 (0.1-0.6); MONO % 1.4 % (1.0-6.0)
[2016-08-18] MEDS: Vancomycin 1gm in NS 250ml 1 GM/250 ML BAG IVPB SCH (05:16)
[2016-08-18 05:34] LABS: ALB/GLOB RATIO 1.4 (1.1-1.8); ALBUMIN 3.8 g/dL (3.0-4.8); CALCIUM 9.6 mg/dL (8.4-10.5)
[2016-08-18 05:40] LABS: TROPONIN I 1.62 ng/mL
[2016-08-18] MEDS: Insulin Lispro (humaLOG) MEDIUM Coverage SC SCH ×4 (08:09→22:11)
--- NOTE | 2016-08-18 08:43 | CP.PCM.CON ---
History of Present Illness - History of Present Illness History of Present Illness: 61 year old female with the following chronic medical problems 1. Ischemic cardiomyopathy - s/p LAD stent 12/2015 2. Acute on chronic systolic CHF 3. COPD - chronic now off tobacco, stable Was called by the primary medical team for evaluation for NSTEMI. Patients came to [facility] for 1 day onset of severe coughing and left mid axiallary pain. She is reporting its sharp in character. Worse with cough. Improves with bronchodilators. She is has been chronically ill since her hospitalization for NSTEMI and commnunity aquired PNA. She is reporting improvement in C. Diff colitis and is now reporting normal stools. Past Patient History - Infectious Disease Hx of Infectious Diseases: None - Past Social History Smoking Status: Former Smoker - CARDIAC Hx Cardiac Disorders: Yes Hx Angina: No Hx Cardia Arrhythmia: No Hx Circulatory Problems: Yes Hx Congestive Heart Failure: No Hx Heart Murmur: No Hx Heart Transplant: No Hx Hypertension: Yes Hx Internal Defibrillator: No Hx Mitral Valve Prolapse: No Hx Pacemaker: No Hx Peripheral Edema: No Hx Peripheral Vascular Disease: Yes - PULMONARY Hx Respiratory Disorders: Yes Hx Asthma: No Hx Bronchitis: No Hx Chronic Obstructive Pulmonary Disease (COPD): Yes Hx Emphysema: No Hx Pneumonia: Yes Hx Respiratory Aspiration: No Hx Respiratory Tract Infection: No Hx Sleep Apnea: No Hx Tuberculosis: No - NEUROLOGICAL Hx Neurological Disorder: No Hx Alzheimer's Disease: No HX Cerebrovascular Accident: No Hx Dementia: No Hx Dizziness: No Hx Meningitis: No Hx Migraine: No Hx Parkinson's Disease: No Hx Seizures: No Hx Transient Ischemic Attacks (TIA): No - HEENT Hx HEENT Problems: No Hx Blind: No Hx Cataracts: No Hx Deafness: No Hx Difficulty Chewing: No Hx Epistaxis: No Hx Glaucoma: No Hx Macular Degeneration: No - RENAL Hx Chronic Kidney Disease: No Hx Dialysis: No Hx Kidney Stones: No Hx Neurogenic Bladder: No Hx Pyelonephritis: No Hx Renal (Kidney) Cancer: No Hx Renal Failure: No - ENDOCRINE/METABOLIC Hx Endocrine Disorders: Yes Hx Adrenal Cancer: No Hx Diabetes Insipidus: No Hx Diabetes Mellitus Type 1: No Hx Diabetes Mellitus Type 2: Yes Hx Hyperthyroidism: No Hx Hypothyroidism: No Hx Systemic Lupus Erythematosus: No - HEMATOLOGICAL/ONCOLOGICAL Hx Blood Disorders: No Hx AIDS: No Hx Anemia: No Hx Cancer: No Hx Chemotherapy: No Hx Cirrhosis: No Hx Hemophilia: No Hx Hepatitis A: No Hx Hepatitis B: No Hx Hepatitis C: No Hx Metastesis: No Hx Shingles: No Hx Sickle Cell Disease: No Hx Unexplained Bleeding: No - INTEGUMENTARY Hx Dermatological Problems: No Hx Basil Cell: No Hx Eczema: No Hx Melanoma: No Hx Psoriasis: No Hx Squamous Cell: No - MUSCULOSKELETAL/RHEUMATOLOGICAL Hx Musculoskeletal Disorders: No Hx Falls: No - GASTROINTESTINAL Hx Gastrointestinal Disorders: No Hx Colostomy: No Hx Crohn's Disease: No Hx Diverticulitis: No Hx Gall Bladder Disease: No Hx Gastroesophageal Reflux: No Hx Ileostomy: No Hx Liver Failure: No Hx Pancreatitis: No HX Swallowing Problems: No - GENITOURINARY/GYNECOLOGICAL Hx Genitourinary Disorders: No Hx Hematuria: No Hx Incontinence: No Hx Sexually Transmitted Disorders: No Hx Urinary Tract Infection: No - PSYCHIATRIC Hx Psychophysiologic Disorder: No Hx Anxiety: No Hx Bipolar Disorder: No Hx Depression: No Hx Emotional Abuse: No Hx Hallucinations: No Hx Panic Symptoms: No Hx Post Traumatic Stress Disorder: No Hx Psychosis: No Hx Physical Abuse: No Hx Schizophrenia: No Hx Sexual Abuse: No Hx Substance Use: No - SURGICAL HISTORY Hx Amputation: No Hx Appendectomy: No Hx Cardiac Catheterization: Yes Hx Cholecystectomy: No Hx Coronary Stent: Yes Hx Gastric Bypass Surgery: No Hx Hysterectomy: No Hx Joint Replacement: No Hx Kidney Transplant: No Hx Liver Transplant: No Hx Mastectomy: No Hx Musculoskeletal Surgery: No Hx Open Heart Surgery: No Hx Orthopedic Surgery: No Hx Splenectomy: No Hx Valve Replacement: No - ANESTHESIA Hx Anesthesia Reactions: No Hx Malignant Hyperthermia: No Meds Allergies/Adverse Reactions: Allergies Allergy/AdvReac Type Severity Reaction Status Date / Time codeine Allergy DIZZINESS Verified 08/17/16 03:27 erythromycin base Allergy ANAPHYLAXIS Verified 08/17/16 03:27 promethazine Allergy HEADACHE Verified 08/17/16 03:27 ciprofloxacin [From Cipro] AdvReac DIZZINESS Verified 08/17/16 03:27 ciprofloxacin HCl AdvReac DIZZINESS Verified 08/17/16 03:27 [From Cipro] - Medications Medications: Current Medications Albuterol/Ipratropium (Duoneb 3 Mg/0.5 Mg (3 Ml) Ud) 3 ml IH [id number] QUIRINO Last Admin: 08/18/16 07:08 Dose: 3 ml Albuterol/Ipratropium (Duoneb 3 Mg/0.5 Mg (3 Ml) Ud) 3 ml IH Q2H PRN PRN Reason: Shortness of Breath Last Admin: 08/17/16 13:03 Dose: 3 ml Aspirin (Aspirin Chewable) 81 mg PO DAILY [facility] Last Admin: 08/17/16 09:25 Dose: 81 mg Atorvastatin Calcium (Lipitor) 10 mg PO DIN [facility] Last Admin: 08/17/16 17:41 Dose: 10 mg Carvedilol (Coreg) 12.5 mg PO DAILY [facility] Last Admin: 08/17/16 09:25 Dose: 12.5 mg Clopidogrel Bisulfate (Plavix) 75 mg PO DAILY [facility] Last Admin: 08/17/16 09:27 Dose: 75 mg Digoxin (Lanoxin) 0.25 mg PO 1400 [facility] Last Admin: 08/17/16 13:53 Dose: 0.25 mg Enoxaparin Sodium (Lovenox) 40 mg SC DAILY [facility] PRN Reason: Protocol Last Admin: 08/17/16 09:26 Dose: 40 mg Furosemide (Lasix) 40 mg IVP Q12 [facility] Last Admin: 08/17/16 22:24 Dose: 40 mg Guaifenesin/Dextromethorphan (Robitussin Dm) 5 ml PO Q4H PRN PRN Reason: Cough Last Admin: 08/18/16 01:41 Dose: 5 ml Vancomycin HCl (Vancomycin 1gm) 1 gm in 250 mls @ 167 mls/hr IVPB Q12H [facility] PRN Reason: Protocol Last Admin: 08/18/16 05:16 Dose: 167 mls/hr Meropenem 1g/NS 100mL IVPB (Meropenem 1g/Ns 100ml Ivpb) 1 gm in 100 mls @ 100 mls/hr IVPB Q12 [facility] PRN Reason: Protocol Stop: 08/25/16 16:42 Last Admin: 08/17/16 17:40 Dose: 100 mls/hr Doxycycline Hyclate 100 mg/ (Sodium Chloride) 100 mls @ 100 mls/hr IVPB Q12 [facility] PRN Reason: Protocol Insulin Human Lispro (Humalog Med) 0 units SC ACHS [facility] PRN Reason: Protocol Last Admin: 08/18/16 08:09 Dose: 5 units Lisinopril (Zestril) 20 mg PO DIN [facility] Last Admin: 08/17/16 17:41 Dose: 20 mg Methylprednisolone (Solu-Medrol) 40 mg IV Q12 [facility] Last Admin: 08/17/16 22:23 Dose: 40 mg Pantoprazole Sodium (Protonix Inj) 40 mg IVP DAILY [facility] Last Admin: 08/17/16 09:27 Dose: 40 mg Results - Vital Signs Recent Vital Signs: Last Vital Signs Temp 98.0 F 08/18/16 06:00 Pulse 92 H 08/18/16 06:00 Resp 20 08/18/16 06:00 BP 144/68 08/18/16 06:00 Pulse Ox 100 08/18/16 06:00 - Labs Result Diagrams: 08/18/16 04:20 08/18/16 04:20 Labs: Laboratory Results - last 24 hr 08/17/16 08/17/16 08/17/16 06:50 06:50 09:35 WBC RBC Hgb Hct MCV MCH MCHC RDW Plt Count MPV Gran % Lymph % (Auto) [place] % (Auto) Eos % (Auto) Baso % (Auto) Gran # Lymph # [place] # Eos # Baso # Neutrophils % (Manual) 89 H Band Neutrophils % 7 H Lymphocytes % (Manual) 3 L Atypical Lymphs % 0 Monocytes % (Manual) 0 L Eosinophils % (Manual) 1 Platelet Evaluation Normal Large Platelets Present Ovalocytes Slight pCO2 42 pO2 210.0 H HCO3 26.6 ABG pH 7.41 ABG Total CO2 27.9 ABG O2 Saturation 99.5 H ABG O2 Content 10.6 L ABG Base Excess 1.8 ABG Hemoglobin 7.3 L ABG Carboxyhemoglobin 1.2 POC ABG HHb (Measured) 0.5 ABG Methemoglobin 0.5 ABG O2 Capacity 10.7 L VBG pH VBG pCO2 VBG HCO3 VBG Total CO2 VBG O2 Sat (Calc) VBG Base Excess VBG Potassium Hgb O2 Saturation 97.8 Sodium Chloride Glucose Lactate FiO2 40.0 Potassium Carbon Dioxide Anion Gap BUN Creatinine Est GFR ( Amer) Est GFR (Non-Af Amer) POC Glucose (mg/dL) Random Glucose Hemoglobin A1c 6.3 Calcium Phosphorus Magnesium Total Bilirubin AST ALT Alkaline Phosphatase Troponin I Total Protein Albumin Globulin Albumin/Globulin Ratio Venous Blood Potassium 08/17/16 08/17/16 08/17/16 10:40 12:14 16:15 WBC RBC Hgb Hct MCV MCH MCHC RDW Plt Count MPV Gran % Lymph % (Auto) [place] % (Auto) Eos % (Auto) Baso % (Auto) Gran # Lymph # [place] # Eos # Baso # Neutrophils % (Manual) Band Neutrophils % Lymphocytes % (Manual) Atypical Lymphs % Monocytes % (Manual) Eosinophils % (Manual) Platelet Evaluation Large Platelets Ovalocytes pCO2 pO2 37 HCO3 ABG pH ABG Total CO2 ABG O2 Saturation ABG O2 Content ABG Base Excess ABG Hemoglobin ABG Carboxyhemoglobin POC ABG HHb (Measured) ABG Methemoglobin ABG O2 Capacity VBG pH 7.36 VBG pCO2 55.0 VBG HCO3 31.1 H VBG Total CO2 32.8 H VBG O2 Sat (Calc) 78.5 H VBG Base Excess 4.9 H VBG Potassium 4.2 Hgb O2 Saturation Sodium 136.0 Chloride 103.0 Glucose 276 H Lactate 2.6 H FiO2 21.0 Potassium Carbon Dioxide Anion Gap BUN Creatinine Est GFR ( Amer) Est GFR (Non-Af Amer) POC Glucose (mg/dL) 360 H 337 H Random Glucose Hemoglobin A1c Calcium Phosphorus Magnesium Total Bilirubin AST ALT Alkaline Phosphatase Troponin I Total Protein Albumin Globulin Albumin/Globulin Ratio Venous Blood Potassium 4.2 08/17/16 08/17/16 08/17/16 20:10 20:10 21:58 WBC RBC Hgb Hct MCV MCH MCHC RDW Plt Count MPV Gran % Lymph % (Auto) [place] % (Auto) Eos % (Auto) Baso % (Auto) Gran # Lymph # [place] # Eos # Baso # Neutrophils % (Manual) Band Neutrophils % Lymphocytes % (Manual) Atypical Lymphs % Monocytes % (Manual) Eosinophils % (Manual) Platelet Evaluation Large Platelets Ovalocytes pCO2 pO2 34 HCO3 ABG pH ABG Total CO2 ABG O2 Saturation ABG O2 Content ABG Base Excess ABG Hemoglobin ABG Carboxyhemoglobin POC ABG HHb (Measured) ABG Methemoglobin ABG O2 Capacity VBG pH 7.34 VBG pCO2 54.0 VBG HCO3 29.1 H VBG Total CO2 30.8 H VBG O2 Sat (Calc) 69.7 H VBG Base Excess 2.7 H VBG Potassium 4.3 Hgb O2 Saturation Sodium 136.0 Chloride 100.0 Glucose 375 H Lactate 2.5 H FiO2 21.0 Potassium Carbon Dioxide Anion Gap BUN Creatinine Est GFR ( Amer) Est GFR (Non-Af Amer) POC Glucose (mg/dL) 340 H Random Glucose Hemoglobin A1c Calcium Phosphorus Magnesium Total Bilirubin AST ALT Alkaline Phosphatase Troponin I 0.71 H* D Total Protein Albumin Globulin Albumin/Globulin Ratio Venous Blood Potassium 4.3 08/18/16 08/18/16 08/18/16 04:20 04:20 04:20 WBC 11.8 H D RBC 3.16 L Hgb 8.4 L Hct 27.9 L MCV 88.3 MCH 26.6 MCHC 30.1 L RDW 15.4 H Plt Count 350 MPV 10.3 Gran % 90.1 H Lymph % (Auto) 8.1 L [place] % (Auto) 1.4 Eos % (Auto) 0.1 L Baso % (Auto) 0.3 Gran # 10.60 H Lymph # 1.0 L [place] # 0.2 Eos # 0.0 Baso # 0.03 Neutrophils % (Manual) Band Neutrophils % Lymphocytes % (Manual) Atypical Lymphs % Monocytes % (Manual) Eosinophils % (Manual) Platelet Evaluation Large Platelets Ovalocytes pCO2 pO2 28 L HCO3 ABG pH ABG Total CO2 ABG O2 Saturation ABG O2 Content ABG Base Excess ABG Hemoglobin ABG Carboxyhemoglobin POC ABG HHb (Measured) ABG Methemoglobin ABG O2 Capacity VBG pH 7.37 VBG pCO2 54.0 VBG HCO3 31.2 H VBG Total CO2 32.9 H VBG O2 Sat (Calc) 56.6 VBG Base Excess 5.1 H VBG Potassium 4.2 Hgb O2 Saturation Sodium 138 136.0 Chloride 98 103.0 Glucose 263 H Lactate 0.8 FiO2 21.0 Potassium 4.3 Carbon Dioxide 29 Anion Gap 15 BUN 23 H Creatinine 1.2 Est GFR ( Amer) 55 Est GFR (Non-Af Amer) 46 POC Glucose (mg/dL) Random Glucose 248 H Hemoglobin A1c Calcium 9.6 Phosphorus 4.0 Magnesium 2.0 Total Bilirubin 0.4 AST 30 ALT 56 Alkaline Phosphatase 61 Troponin I 1.62 H* D Total Protein 6.7 Albumin 3.8 Globulin 2.8 Albumin/Globulin Ratio 1.4 Venous Blood Potassium 4.2 - EKG Data EKG Interpreted by: Myself EKG shows normal: Sinus rhythm (ST T changes which are largely unchanged from prior EKG going back to April 2016) - Imaging and Cardiology Chest x-ray Status: Image reviewed by me (Poor inspirtory effort, pulmonary vascular congestion ) Assessment & Plan - Assessment and Plan (Free Text) Assessment: 61 year old female with elevated troponin suspicous for NSTEMI BUT clinically this elevated troponin is likely due to prior ischemic cardiomyopathy, elevated troponin to this level is also seen in sepsis. Will order 2D echo to calculate ejection fraction but more importantly to measure left atrial pressure. Change Lovenox to IV heparin on ACS protocol. Acute on chronic systolic CHF - continue with coreg, RAAS blockade, lasix to maintain euvolemia COPD - bronchodilators, CT Chest to define lung pathology DM - chronic on insulin Coronary artery disease - continue dual anti platelet therapy, will need high dose of statin. - Date & Time Date: 08/18/16 Time: 08:59
[2016-08-18] MEDS: Meropenem 1g/NS 100mL IVPB 1 GM/100 ML PIGGYBACK IVPB SCH ×2 (09:39→22:16)
[2016-08-18] MEDS: MethylPREDNISolone 40 mg Vial IV SCH ×2 (09:40→22:15)
--- NOTE | 2016-08-18 09:54 | CARD ---
APPROVED REPORT EKG Measurement Heart [id number] CT [id number] <Conclusion> Sinus tachycardia Possible Left atrial enlargement Possible Anterior infarct, age undetermined ST & T wave abnormality, consider lateral ischemia, increased c/w ECG 08/17/16
--- NOTE | 2016-08-18 10:07 | CARD ---
APPROVED REPORT EKG Measurement Heart [id number] [place] [id number] <Conclusion> Normal sinus rhythm Possible Left atrial enlargement ST & T wave abnormality, consider lateral ischemia PRWP, possible anterior [place], age unknown No change
--- NOTE | 2016-08-18 10:37 | CT ---
PROCEDURE: CT Chest without contrast HISTORY: sob COMPARISON: 04/11/2016 TECHNIQUE: Contiguous axial images were obtained through the chest without intravenous contrast enhancement. Sagittal and coronal reconstructions were performed. Radiation dose (DLP): 196 mGy-cm. This CT exam was performed using one or more of the following dose reduction techniques: Automated exposure control, adjustment of the mA and/or kV according to patient size, and/or use of iterative reconstruction technique. FINDINGS: LUNGS: Clear lungs. Visualized airway clear. Minimal consolidation at right lung base adjacent to effusion MEDIASTINUM: Unremarkable thoracic aorta. No aneurysm. Normal sized heart. Main pulmonary artery unremarkable. No vascular congestion. No lymphadenopathy. PLEURA: Small bilateral pleural effusions BONES: No fracture. No destructive lesion. UPPER ABDOMEN: Grossly unremarkable. OTHER FINDINGS: Coronary artery calcifications are seen IMPRESSION: Small bilateral pleural effusions. Minimal atelectasis at the right lung base.
[2016-08-18] MEDS ORDERED: Nitroglycerin 2% Ointment Foilpak UD TOP STA (12:07)
--- NOTE | 2016-08-18 12:17 | CP.PCM.CON ---
History of Present Illness - History of Present Illness History of Present Illness: 61 year old female with PMH of DM, peripheral vascular disease, history of significant smoking, probable chronic obstructive lung disease, CAD S/P PCI, chronic CHF with EF 35-40% (2015), history of diverticulitis, peripheral vascular disease was brought in to [facility] because of worsening shortness of breath for the past day with associated dry cough. She denies having fever or chills, no nausea or vomiting, no chest pain or palpitations, no headache or dizziness, no diarrhea, no dysuria, denies sick contacts. In the ED, she was noted to be in respiratory distress and was acidotic and hypercapneic. Infectious Diseases consult is requested to evaluate for the possibility of sepsis in this patient. Review of Systems - Review of Systems All systems: reviewed and no additional remarkable complaints except (as per HPI ) Past Patient History - Infectious Disease Hx of Infectious Diseases: None - Past Social History Smoking Status: Former Smoker - CARDIAC Hx Cardiac Disorders: Yes Hx Angina: No Hx Cardia Arrhythmia: No Hx Circulatory Problems: Yes Hx Congestive Heart Failure: No Hx Heart Murmur: No Hx Heart Transplant: No Hx Hypertension: Yes Hx Internal Defibrillator: No Hx Mitral Valve Prolapse: No Hx Pacemaker: No Hx Peripheral Edema: No Hx Peripheral Vascular Disease: Yes - PULMONARY Hx Respiratory Disorders: Yes Hx Asthma: No Hx Bronchitis: No Hx Chronic Obstructive Pulmonary Disease (COPD): Yes Hx Emphysema: No Hx Pneumonia: Yes Hx Respiratory Aspiration: No Hx Respiratory Tract Infection: No Hx Sleep Apnea: No Hx Tuberculosis: No - NEUROLOGICAL Hx Neurological Disorder: No Hx Alzheimer's Disease: No HX Cerebrovascular Accident: No Hx Dementia: No Hx Dizziness: No Hx Meningitis: No Hx Migraine: No Hx Parkinson's Disease: No Hx Seizures: No Hx Transient Ischemic Attacks (TIA): No - HEENT Hx HEENT Problems: No Hx Blind: No Hx Cataracts: No Hx Deafness: No Hx Difficulty Chewing: No Hx Epistaxis: No Hx Glaucoma: No Hx Macular Degeneration: No - RENAL Hx Chronic Kidney Disease: No Hx Dialysis: No Hx Kidney Stones: No Hx Neurogenic Bladder: No Hx Pyelonephritis: No Hx Renal (Kidney) Cancer: No Hx Renal Failure: No - ENDOCRINE/METABOLIC Hx Endocrine Disorders: Yes Hx Adrenal Cancer: No Hx Diabetes Insipidus: No Hx Diabetes Mellitus Type 1: No Hx Diabetes Mellitus Type 2: Yes Hx Hyperthyroidism: No Hx Hypothyroidism: No Hx Systemic Lupus Erythematosus: No - HEMATOLOGICAL/ONCOLOGICAL Hx Blood Disorders: No Hx AIDS: No Hx Anemia: No Hx Cancer: No Hx Chemotherapy: No Hx Cirrhosis: No Hx Hemophilia: No Hx Hepatitis A: No Hx Hepatitis B: No Hx Hepatitis C: No Hx Metastesis: No Hx Shingles: No Hx Sickle Cell Disease: No Hx Unexplained Bleeding: No - INTEGUMENTARY Hx Dermatological Problems: No Hx Basil Cell: No Hx Eczema: No Hx Melanoma: No Hx Psoriasis: No Hx Squamous Cell: No - MUSCULOSKELETAL/RHEUMATOLOGICAL Hx Musculoskeletal Disorders: No Hx Falls: No - GASTROINTESTINAL Hx Gastrointestinal Disorders: No Hx Colostomy: No Hx Crohn's Disease: No Hx Diverticulitis: No Hx Gall Bladder Disease: No Hx Gastroesophageal Reflux: No Hx Ileostomy: No Hx Liver Failure: No Hx Pancreatitis: No HX Swallowing Problems: No - GENITOURINARY/GYNECOLOGICAL Hx Genitourinary Disorders: No Hx Hematuria: No Hx Incontinence: No Hx Sexually Transmitted Disorders: No Hx Urinary Tract Infection: No - PSYCHIATRIC Hx Psychophysiologic Disorder: No Hx Anxiety: No Hx Bipolar Disorder: No Hx Depression: No Hx Emotional Abuse: No Hx Hallucinations: No Hx Panic Symptoms: No Hx Post Traumatic Stress Disorder: No Hx Psychosis: No Hx Physical Abuse: No Hx Schizophrenia: No Hx Sexual Abuse: No Hx Substance Use: No - SURGICAL HISTORY Hx Amputation: No Hx Appendectomy: No Hx Cardiac Catheterization: Yes Hx Cholecystectomy: No Hx Coronary Stent: Yes Hx Gastric Bypass Surgery: No Hx Hysterectomy: No Hx Joint Replacement: No Hx Kidney Transplant: No Hx Liver Transplant: No Hx Mastectomy: No Hx Musculoskeletal Surgery: No Hx Open Heart Surgery: No Hx Orthopedic Surgery: No Hx Splenectomy: No Hx Valve Replacement: No - ANESTHESIA Hx Anesthesia Reactions: No Hx Malignant Hyperthermia: No Meds Allergies/Adverse Reactions: Allergies Allergy/AdvReac Type Severity Reaction Status Date / Time codeine Allergy DIZZINESS Verified 08/17/16 03:27 erythromycin base Allergy ANAPHYLAXIS Verified 08/17/16 03:27 promethazine Allergy HEADACHE Verified 08/17/16 03:27 ciprofloxacin [From Cipro] AdvReac DIZZINESS Verified 08/17/16 03:27 ciprofloxacin HCl AdvReac DIZZINESS Verified 08/17/16 03:27 [From Cipro] - Medications Medications: Current Medications Albuterol/Ipratropium (Duoneb 3 Mg/0.5 Mg (3 Ml) Ud) 3 ml IH [id number] [facility] Last Admin: 08/18/16 07:08 Dose: 3 ml Albuterol/Ipratropium (Duoneb 3 Mg/0.5 Mg (3 Ml) Ud) 3 ml IH Q2H PRN PRN Reason: Shortness of Breath Last Admin: 08/17/16 13:03 Dose: 3 ml Aspirin (Aspirin Chewable) 81 mg PO DAILY [facility] Last Admin: 08/17/16 09:25 Dose: 81 mg Atorvastatin Calcium (Lipitor) 10 mg PO DIN [facility] Last Admin: 08/17/16 17:41 Dose: 10 mg Carvedilol (Coreg) 12.5 mg PO DAILY [facility] Last Admin: 08/17/16 09:25 Dose: 12.5 mg Clopidogrel Bisulfate (Plavix) 75 mg PO DAILY [facility] Last Admin: 08/17/16 09:27 Dose: 75 mg Digoxin (Lanoxin) 0.25 mg PO 1400 [facility] Last Admin: 08/17/16 13:53 Dose: 0.25 mg Enoxaparin Sodium (Lovenox) 40 mg SC DAILY [facility] PRN Reason: Protocol Last Admin: 08/17/16 09:26 Dose: 40 mg Furosemide (Lasix) 40 mg IVP Q12 [facility] Last Admin: 08/17/16 22:24 Dose: 40 mg Guaifenesin/Dextromethorphan (Robitussin Dm) 5 ml PO Q4H PRN PRN Reason: Cough Last Admin: 08/18/16 01:41 Dose: 5 ml Vancomycin HCl (Vancomycin 1gm) 1 gm in 250 mls @ 167 mls/hr IVPB Q12H [facility] PRN Reason: Protocol Last Admin: 08/18/16 05:16 Dose: 167 mls/hr Meropenem 1g/NS 100mL IVPB (Meropenem 1g/Ns 100ml Ivpb) 1 gm in 100 mls @ 100 mls/hr IVPB Q12 [facility] PRN Reason: Protocol Stop: 08/25/16 16:42 Last Admin: 08/17/16 17:40 Dose: 100 mls/hr Doxycycline Hyclate 100 mg/ (Sodium Chloride) 100 mls @ 100 mls/hr IVPB Q12 [facility] PRN Reason: Protocol Insulin Human Lispro (Humalog Med) 0 units SC ACHS [facility] PRN Reason: Protocol Last Admin: 08/17/16 22:25 Dose: 1 units Lisinopril (Zestril) 20 mg PO DIN [facility] Last Admin: 08/17/16 17:41 Dose: 20 mg Methylprednisolone (Solu-Medrol) 40 mg IV Q12 [facility] Last Admin: 08/17/16 22:23 Dose: 40 mg Pantoprazole Sodium (Protonix Inj) 40 mg IVP DAILY [facility] Last Admin: 08/17/16 09:27 Dose: 40 mg Physical Exam - Constitutional Appears: Other (in some respiratory distress) - Head Exam Head Exam: NORMAL INSPECTION - Neck Exam Neck exam: Negative for: Meningismus - Respiratory Exam Respiratory Exam: Decreased Breath Sounds (with rales at the bases) - Cardiovascular Exam Cardiovascular Exam: +S1, +S2 - GI/Abdominal Exam GI & Abdominal Exam: Soft. absent: Tenderness Results - Vital Signs Recent Vital Signs: Last Vital Signs Temp 98.0 F 08/18/16 06:00 Pulse 92 H 08/18/16 06:00 Resp 20 08/18/16 06:00 BP 144/68 08/18/16 06:00 Pulse Ox 100 08/18/16 06:00 - Labs Result Diagrams: 08/18/16 04:20 08/18/16 04:20 Labs: Laboratory Results - last 24 hr 08/17/16 08/17/16 08/17/16 06:50 06:50 06:50 WBC RBC Hgb Hct MCV MCH MCHC RDW Plt Count MPV Gran % Lymph % (Auto) [place] % (Auto) Eos % (Auto) Baso % (Auto) Gran # Lymph # [place] # Eos # Baso # Neutrophils % (Manual) Band Neutrophils % Lymphocytes % (Manual) Atypical Lymphs % Monocytes % (Manual) Eosinophils % (Manual) Platelet Evaluation Large Platelets Ovalocytes pCO2 pO2 HCO3 ABG pH ABG Total CO2 ABG O2 Saturation ABG O2 Content ABG Base Excess ABG Hemoglobin ABG Carboxyhemoglobin POC ABG HHb (Measured) ABG Methemoglobin ABG O2 Capacity VBG pH VBG pCO2 VBG HCO3 VBG Total CO2 VBG O2 Sat (Calc) VBG Base Excess VBG Potassium Hgb O2 Saturation Glucose Lactate FiO2 Sodium 138 Potassium 4.5 Chloride 99 Carbon Dioxide 29 Anion Gap 15 BUN 19 Creatinine 1.1 Est GFR ( Amer) > 60 Est GFR (Non-Af Amer) 50 POC Glucose (mg/dL) Random Glucose 187 H Hemoglobin A1c 6.3 Calcium 9.0 Phosphorus 4.9 H Magnesium 2.0 Total Bilirubin 0.4 AST 58 H ALT 62 H Alkaline Phosphatase 63 Troponin I Total Protein 6.4 Albumin 3.7 Globulin 2.7 Albumin/Globulin Ratio 1.4 Triglycerides 207 H Cholesterol 124 L LDL Cholesterol Direct 42 HDL Cholesterol 41 Free T4 1.47 Thyroxine (T4) 9.2 TSH 3rd Generation 0.59 Venous Blood Potassium 08/17/16 08/17/16 08/17/16 06:50 07:52 09:35 WBC RBC Hgb Hct MCV MCH MCHC RDW Plt Count MPV Gran % Lymph % (Auto) [place] % (Auto) Eos % (Auto) Baso % (Auto) Gran # Lymph # [place] # Eos # Baso # Neutrophils % (Manual) 89 H Band Neutrophils % 7 H Lymphocytes % (Manual) 3 L Atypical Lymphs % 0 Monocytes % (Manual) 0 L Eosinophils % (Manual) 1 Platelet Evaluation Normal Large Platelets Present Ovalocytes Slight pCO2 42 pO2 210.0 H HCO3 26.6 ABG pH 7.41 ABG Total CO2 27.9 ABG O2 Saturation 99.5 H ABG O2 Content 10.6 L ABG Base Excess 1.8 ABG Hemoglobin 7.3 L ABG Carboxyhemoglobin 1.2 POC ABG HHb (Measured) 0.5 ABG Methemoglobin 0.5 ABG O2 Capacity 10.7 L VBG pH VBG pCO2 VBG HCO3 VBG Total CO2 VBG O2 Sat (Calc) VBG Base Excess VBG Potassium Hgb O2 Saturation 97.8 Glucose Lactate FiO2 40.0 Sodium Potassium Chloride Carbon Dioxide Anion Gap BUN Creatinine Est GFR ( Amer) Est GFR (Non-Af Amer) POC Glucose (mg/dL) 146 H Random Glucose Hemoglobin A1c Calcium Phosphorus Magnesium Total Bilirubin AST ALT Alkaline Phosphatase Troponin I Total Protein Albumin Globulin Albumin/Globulin Ratio Triglycerides Cholesterol LDL Cholesterol Direct HDL Cholesterol Free T4 Thyroxine (T4) TSH 3rd Generation Venous Blood Potassium 08/17/16 08/17/16 08/17/16 10:40 12:14 16:15 WBC RBC Hgb Hct MCV MCH MCHC RDW Plt Count MPV Gran % Lymph % (Auto) [place] % (Auto) Eos % (Auto) Baso % (Auto) Gran # Lymph # [place] # Eos # Baso # Neutrophils % (Manual) Band Neutrophils % Lymphocytes % (Manual) Atypical Lymphs % Monocytes % (Manual) Eosinophils % (Manual) Platelet Evaluation Large Platelets Ovalocytes pCO2 pO2 37 HCO3 ABG pH ABG Total CO2 ABG O2 Saturation ABG O2 Content ABG Base Excess ABG Hemoglobin ABG Carboxyhemoglobin POC ABG HHb (Measured) ABG Methemoglobin ABG O2 Capacity VBG pH 7.36 VBG pCO2 55.0 VBG HCO3 31.1 H VBG Total CO2 32.8 H VBG O2 Sat (Calc) 78.5 H VBG Base Excess 4.9 H VBG Potassium 4.2 Hgb O2 Saturation Glucose 276 H Lactate 2.6 H FiO2 21.0 Sodium 136.0 Potassium Chloride 103.0 Carbon Dioxide Anion Gap BUN Creatinine Est GFR ( Amer) Est GFR (Non-Af Amer) POC Glucose (mg/dL) 360 H 337 H Random Glucose Hemoglobin A1c Calcium Phosphorus Magnesium Total Bilirubin AST ALT Alkaline Phosphatase Troponin I Total Protein Albumin Globulin Albumin/Globulin Ratio Triglycerides Cholesterol LDL Cholesterol Direct HDL Cholesterol Free T4 Thyroxine (T4) TSH 3rd Generation Venous Blood Potassium 4.2 08/17/16 08/17/16 08/17/16 20:10 20:10 21:58 WBC RBC Hgb Hct MCV MCH MCHC RDW Plt Count MPV Gran % Lymph % (Auto) [place] % (Auto) Eos % (Auto) Baso % (Auto) Gran # Lymph # [place] # Eos # Baso # Neutrophils % (Manual) Band Neutrophils % Lymphocytes % (Manual) Atypical Lymphs % Monocytes % (Manual) Eosinophils % (Manual) Platelet Evaluation Large Platelets Ovalocytes pCO2 pO2 34 HCO3 ABG pH ABG Total CO2 ABG O2 Saturation ABG O2 Content ABG Base Excess ABG Hemoglobin ABG Carboxyhemoglobin POC ABG HHb (Measured) ABG Methemoglobin ABG O2 Capacity VBG pH 7.34 VBG pCO2 54.0 VBG HCO3 29.1 H VBG Total CO2 30.8 H VBG O2 Sat (Calc) 69.7 H VBG Base Excess 2.7 H VBG Potassium 4.3 Hgb O2 Saturation Glucose 375 H Lactate 2.5 H FiO2 21.0 Sodium 136.0 Potassium Chloride 100.0 Carbon Dioxide Anion Gap BUN Creatinine Est GFR ( Amer) Est GFR (Non-Af Amer) POC Glucose (mg/dL) 340 H Random Glucose Hemoglobin A1c Calcium Phosphorus Magnesium Total Bilirubin AST ALT Alkaline Phosphatase Troponin I 0.71 H* D Total Protein Albumin Globulin Albumin/Globulin Ratio Triglycerides Cholesterol LDL Cholesterol Direct HDL Cholesterol Free T4 Thyroxine (T4) TSH 3rd Generation Venous Blood Potassium 4.3 08/18/16 08/18/16 08/18/16 04:20 04:20 04:20 WBC 11.8 H D RBC 3.16 L Hgb 8.4 L Hct 27.9 L MCV 88.3 MCH 26.6 MCHC 30.1 L RDW 15.4 H Plt Count 350 MPV 10.3 Gran % 90.1 H Lymph % (Auto) 8.1 L [place] % (Auto) 1.4 Eos % (Auto) 0.1 L Baso % (Auto) 0.3 Gran # 10.60 H Lymph # 1.0 L [place] # 0.2 Eos # 0.0 Baso # 0.03 Neutrophils % (Manual) Band Neutrophils % Lymphocytes % (Manual) Atypical Lymphs % Monocytes % (Manual) Eosinophils % (Manual) Platelet Evaluation Large Platelets Ovalocytes pCO2 pO2 28 L HCO3 ABG pH ABG Total CO2 ABG O2 Saturation ABG O2 Content ABG Base Excess ABG Hemoglobin ABG Carboxyhemoglobin POC ABG HHb (Measured) ABG Methemoglobin ABG O2 Capacity VBG pH 7.37 VBG pCO2 54.0 VBG HCO3 31.2 H VBG Total CO2 32.9 H VBG O2 Sat (Calc) 56.6 VBG Base Excess 5.1 H VBG Potassium 4.2 Hgb O2 Saturation Glucose 263 H Lactate 0.8 FiO2 21.0 Sodium 138 136.0 Potassium 4.3 Chloride 98 103.0 Carbon Dioxide 29 Anion Gap 15 BUN 23 H Creatinine 1.2 Est GFR ( Amer) 55 Est GFR (Non-Af Amer) 46 POC Glucose (mg/dL) Random Glucose 248 H Hemoglobin A1c Calcium 9.6 Phosphorus 4.0 Magnesium 2.0 Total Bilirubin 0.4 AST 30 ALT 56 Alkaline Phosphatase 61 Troponin I 1.62 H* D Total Protein 6.7 Albumin 3.8 Globulin 2.8 Albumin/Globulin Ratio 1.4 Triglycerides Cholesterol LDL Cholesterol Direct HDL Cholesterol Free T4 Thyroxine (T4) TSH 3rd Generation Venous Blood Potassium 4.2 Assessment & Plan - Assessment and Plan (Free Text) Plan: Assessment Systemic Inflammatory Response Syndrome, probably due to CHF exacerbation, rule out right lower lobe healthcare-associated pneumonia history of right lower lobe community-acquired pneumonia COPD chronic congestive heart failure with CAD S/P PCI, with EF 35-40% (2015) DM peripheral vascular disease history of significant smoking history of diverticulitis Plan started patient on Merrem and Doxycycline pending blood and sputum cx, PCT; will follow up results of the CT chest and 2D echo will monitor clinically
[2016-08-18] MEDS: Enoxaparin 40 mg Syringe SC SCH (12:54)
[2016-08-18] MEDS: Heparin 25,000units in D5W 25,000 UNITS/250 ML BAG IV SCH (13:34)
[2016-08-18] MEDS: Digoxin 250 mcg (0.25 mg) Tab PO SCH (14:08)
[2016-08-19] MEDS: Albuterol-Ipratrop 3 mg / 0.5 (3 ml) UD IH SCH ×7 (00:21→20:30)
[2016-08-19] MEDS: Pantoprazole 40 mg EC Tab PO SCH (05:54)
[2016-08-19] MEDS: Albuterol-Ipratrop 3 mg / 0.5 (3 ml) UD IH PRN (07:27)
[2016-08-19] MEDS: Insulin Lispro (humaLOG) MEDIUM Coverage SC SCH ×2 (07:56→12:29)
--- NOTE | 2016-08-19 08:06 | CARD ---
APPROVED REPORT EXAM: Two-dimensional and M-mode echocardiogram with Doppler and color Doppler. Other Information Quality : FairRhythm : INDICATION CHF, NSTEMI 2D DIMENSIONS IVSd1.1 (0.7-1.1cm)LVDd5.4 (3.9-5.9cm) PWd1.1 (0.7-1.1cm)LVDs4.9 (2.5-4.0cm) FS (%) 10.7 %LVEF (%)23.0 (>50%) M-Mode DIMENSIONS Left Atrium (MM)3.90 (2.5-4.0cm)Aortic Root2.90 (2.2-3.7cm) Aortic Cusp Exc.1.80 (1.5-2.0cm) Aortic Valve AoV Peak Vgwmngnv479.0cm/Kem Peak GR.11mmHg Mitral Valve MV E Idtovmoo454.0cm/sMV E Peak Gr.113mmHgMV A Quwkffrp820.0cm/s MV E Mean Gr.68mmHgE/A ratio1.2 TDI Lateral E' Peak V4.19cm/sMedial E' Peak V6.24cm/sE/Lateral E'36.0 E/Medial E'24.2 Tricuspid Valve TR Peak [id number]/sRAP [id number] Peak Gr.43mmHg [id number] LEFT VENTRICLE The left ventricle is normal size. There is normal left ventricular wall thickness. Left ventricle systolic function is severely impaired. The Ejection Fraction is 20-25%. There is severe global hypokinesis. RIGHT VENTRICLE The right ventricle is normal size. ATRIA The left atrium is mildly dilated. The right atrium size is normal. The interatrial septum is intact with no evidence for an atrial septal defect. AORTIC VALVE The aortic valve is mildly calcified. MITRAL VALVE The mitral valve is normal in structure. Mitral annular calcification is moderate. Mitral regurgitation is mild. TRICUSPID VALVE The tricuspid valve is not well visualized. There is mild tricuspid regurgitation. There is moderate pulmonary hypertension. GREAT VESSELS The aortic root is normal in size. PERICARDIAL EFFUSION There is no pericardial effusion. <Conclusion> The left ventricle is normal size. There is normal left ventricular wall thickness. Left ventricle systolic function is severely impaired. The Ejection Fraction is 20-25%. There is severe global hypokinesis. Mitral regurgitation is mild. There is mild tricuspid regurgitation. There is moderate pulmonary hypertension.
[2016-08-19 08:11] LABS: BASO # 0.01 K/mm3 (0.0-2.0); BASO % 0.1 % (0.0-3.0); GRAN # 14.71 (1.4-6.5); GRAN % 88.9 % (50.0-68.0); LYMPH # 1.2 (1.2-3.4); LYMPH % 7.3 % (22.0-35.0); MEAN CELL VOLUME 87.9 fL (80.0-105.0); MEAN CORPUSCULAR HEMOGLOBIN 26.1 pg (25.0-35.0); MEAN CORPUSCULAR HGB CONC 29.7 g/dl (31.0-37.0); MEAN PLATELET VOLUME 9.7 fl (7.0-11.0); MONO # 0.6 (0.1-0.6); MONO % 3.7 % (1.0-6.0); PLATELET COUNT 374 10^3/uL (120.0-450.0); RBC 3.06 10^6/uL (3.5-6.1); RED CELL DISTRIBUTION WIDTH 15.6 % (11.5-14.5); WHITE BLOOD COUNT 16.6 10^3/ul (4.5-11.0)
[2016-08-19 08:12] LABS: HEMOGLOBIN 8.1 gm/dL (12.0-16.0)
[2016-08-19 08:31] LABS: ALB/GLOB RATIO 1.4 (1.1-1.8); ALBUMIN 3.7 g/dL (3.0-4.8); CALCIUM 9.5 mg/dL (8.4-10.5); MAGNESIUM 1.9 mg/dL (1.7-2.2)
--- NOTE | 2016-08-19 08:31 | CARD ---
APPROVED REPORT EKG Measurement Heart [id number] <Conclusion> Sinus tachycardia ST & T wave abnormality c/w ischemia No change
--- NOTE | 2016-08-19 10:01 | CP.PCM.PN ---
Subjective - Date & Time of Evaluation Date of Evaluation: 08/19/16 Time of Evaluation: 09:58 - Subjective Subjective: Events reviewed. Objective - Vital Signs/Intake and Output Vital Signs (last 24 hours): Temp Pulse Resp BP Pulse Ox 98.0 F 85 19 162/78 H 99 08/19/16 06:00 08/19/16 06:00 08/19/16 06:00 08/19/16 06:00 08/19/16 06:00 Intake and Output: 08/19/16 08/19/16 06:59 18:59 Intake Total 326 Output Total 0 Balance 326 - Medications Medications: Current Medications Albuterol/Ipratropium (Duoneb 3 Mg/0.5 Mg (3 Ml) Ud) 3 ml IH [id number] [facility] Last Admin: 08/19/16 07:26 Dose: 3 ml Albuterol/Ipratropium (Duoneb 3 Mg/0.5 Mg (3 Ml) Ud) 3 ml IH Q2H PRN PRN Reason: Shortness of Breath Last Admin: 08/19/16 07:27 Dose: 3 ml Aspirin (Aspirin Chewable) 81 mg PO DAILY [facility] Last Admin: 08/18/16 09:37 Dose: 81 mg Atorvastatin Calcium (Lipitor) 10 mg PO DIN [facility] Last Admin: 08/18/16 17:31 Dose: 10 mg Carvedilol (Coreg) 12.5 mg PO DAILY [facility] Last Admin: 08/18/16 09:36 Dose: 12.5 mg Clopidogrel Bisulfate (Plavix) 75 mg PO DAILY [facility] Last Admin: 08/18/16 09:37 Dose: 75 mg Digoxin (Lanoxin) 0.25 mg PO 1400 [facility] Last Admin: 08/18/16 14:08 Dose: 0.25 mg Furosemide (Lasix) 40 mg IVP TID [facility] Last Admin: 08/18/16 17:33 Dose: 40 mg Guaifenesin/Dextromethorphan (Robitussin Dm) 5 ml PO Q4H PRN PRN Reason: Cough Last Admin: 08/18/16 22:18 Dose: 5 ml Meropenem 1g/NS 100mL IVPB (Meropenem 1g/Ns 100ml Ivpb) 1 gm in 100 mls @ 100 mls/hr IVPB Q12 [facility] PRN Reason: Protocol Stop: 08/25/16 16:42 Last Admin: 08/18/16 22:16 Dose: 100 mls/hr Doxycycline Hyclate 100 mg/ (Sodium Chloride) 100 mls @ 100 mls/hr IVPB Q12 [facility] PRN Reason: Protocol Last Admin: 08/18/16 22:12 Dose: 100 mls/hr Heparin Sodium/Dextrose (Heparin 25,000 Units/250ml In D5w) 25,000 units in 250 mls @ 6.477 mls/hr IV .Q24H [facility]; 12 UNITS/KG/HR PRN Reason: Protocol Last Titration: 08/18/16 20:00 Dose: 16 units/kg/hr, 8.636 mls/hr Insulin Human Lispro (Humalog Med) 0 units SC ACHS [facility] PRN Reason: Protocol Last Admin: 08/19/16 07:56 Dose: 7 units Lisinopril (Zestril) 20 mg PO DIN [facility] Last Admin: 08/18/16 17:31 Dose: 20 mg Methylprednisolone (Solu-Medrol) 40 mg IV Q12 [facility] Last Admin: 08/18/16 22:15 Dose: 40 mg Pantoprazole Sodium (Protonix Ec Tab) 40 mg PO 0600 [facility] Last Admin: 08/19/16 05:54 Dose: 40 mg Spironolactone (Aldactone) 25 mg PO Q24H [facility] Last Admin: 08/18/16 09:37 Dose: 25 mg - Labs Labs: 08/19/16 07:30 08/19/16 05:00 APTT 58.7 Seconds (23.7-30.8) H 08/19/16 01:45 - Constitutional Appears: Well, Non-toxic - Respiratory Exam Respiratory Exam: Wheezes, NORMAL BREATHING PATTERN - Cardiovascular Exam Cardiovascular Exam: REGULAR RHYTHM, JVD, RRR, +S1, +S2, +S4 Additional comments: Trace lower extremity edema - GI/Abdominal Exam GI & Abdominal Exam: Normal Bowel Sounds. absent: Organomegaly Assessment and Plan - Assessment and Plan (Free Text) Assessment: 2D echo images viewed by me directly: Severe LV dysfunction with EF 20-35%, Elevated left atrial pressure Stage II diastolic dysfunction, no hemodynamically significant valve lesions A/P: 61 year old female with severe ischemic cardiomypathy she came to [facility] for severe cough and shortness of breath which in in the setting of elevated left atrial pressure is likely due to acute on chronic systolic CHF. She also has a long history of tobacco abuse so likely has a concomitant COPD exacerbation. I would continue IV diuresis until she is more euvolemic which should improve her respiratory status. I agress with simultanous empiric treatment with steroids and antibiotics Chest pain is likely non cardiac due to intercostal muscle fatigue continue with cough suppressants NSTEMI - minimially elevated troponin is likely to due ventricular strain in the setting of cardiomyopathy. I think its safe to d/c anticoagulation and resume DVT prophylaxsis. Continue dual anti platelet therapy for severe CAD. Cardiomyopathy - Increase coreg 25 BID , Aldactone....I wonder if we should stop GENEVIEVE and switch to ARB if her cough is not improved with diuresis. Ultimately as an out patient she will need to start Entresto which is an ARNI ( Angitensin receptor and neprolysis inhibitor). [facility]couarge physical therapy D/C planning
[2016-08-19] MEDS: MethylPREDNISolone 40 mg Vial IV SCH ×2 (10:48→21:31)
[2016-08-19] MEDS: Meropenem 1g/NS 100mL IVPB 1 GM/100 ML PIGGYBACK IVPB SCH (10:51)
[2016-08-19] MEDS: Heparin 25,000units in D5W 25,000 UNITS/250 ML BAG IV SCH (12:20)
--- NOTE | 2016-08-19 13:30 | CP.PCM.PN ---
Subjective - Date & Time of Evaluation Date of Evaluation: 08/19/16 Time of Evaluation: 12:35 - Subjective Subjective: Patient is breathing better, no fevers overnight. Objective - Vital Signs/Intake and Output Vital Signs (last 24 hours): Temp Pulse Resp BP Pulse Ox 98.0 F 85 19 162/78 H 99 08/19/16 06:00 08/19/16 06:00 08/19/16 06:00 08/19/16 06:00 08/19/16 06:00 Intake and Output: 08/19/16 08/19/16 06:59 18:59 Intake Total 326 Output Total 0 Balance 326 - Medications Medications: Current Medications Albuterol/Ipratropium (Duoneb 3 Mg/0.5 Mg (3 Ml) Ud) 3 ml IH [id number] [facility] Last Admin: 08/19/16 07:26 Dose: 3 ml Albuterol/Ipratropium (Duoneb 3 Mg/0.5 Mg (3 Ml) Ud) 3 ml IH Q2H PRN PRN Reason: Shortness of Breath Last Admin: 08/19/16 07:27 Dose: 3 ml Aspirin (Aspirin Chewable) 81 mg PO DAILY [facility] Last Admin: 08/18/16 09:37 Dose: 81 mg Atorvastatin Calcium (Lipitor) 10 mg PO DIN [facility] Last Admin: 08/18/16 17:31 Dose: 10 mg Carvedilol (Coreg) 12.5 mg PO DAILY [facility] Last Admin: 08/18/16 09:36 Dose: 12.5 mg Clopidogrel Bisulfate (Plavix) 75 mg PO DAILY [facility] Last Admin: 08/18/16 09:37 Dose: 75 mg Digoxin (Lanoxin) 0.25 mg PO 1400 [facility] Last Admin: 08/18/16 14:08 Dose: 0.25 mg Furosemide (Lasix) 40 mg IVP TID [facility] Last Admin: 08/18/16 17:33 Dose: 40 mg Guaifenesin/Dextromethorphan (Robitussin Dm) 5 ml PO Q4H PRN PRN Reason: Cough Last Admin: 08/18/16 22:18 Dose: 5 ml Meropenem 1g/NS 100mL IVPB (Meropenem 1g/Ns 100ml Ivpb) 1 gm in 100 mls @ 100 mls/hr IVPB Q12 [facility] PRN Reason: Protocol Stop: 08/25/16 16:42 Last Admin: 08/18/16 22:16 Dose: 100 mls/hr Doxycycline Hyclate 100 mg/ (Sodium Chloride) 100 mls @ 100 mls/hr IVPB Q12 [facility] PRN Reason: Protocol Last Admin: 08/18/16 22:12 Dose: 100 mls/hr Heparin Sodium/Dextrose (Heparin 25,000 Units/250ml In D5w) 25,000 units in 250 mls @ 6.477 mls/hr IV .Q24H [facility]; 12 UNITS/KG/HR PRN Reason: Protocol Last Titration: 08/18/16 20:00 Dose: 16 units/kg/hr, 8.636 mls/hr Insulin Human Lispro (Humalog Med) 0 units SC ACHS [facility] PRN Reason: Protocol Last Admin: 08/18/16 22:11 Dose: 3 units Lisinopril (Zestril) 20 mg PO DIN [facility] Last Admin: 08/18/16 17:31 Dose: 20 mg Methylprednisolone (Solu-Medrol) 40 mg IV Q12 [facility] Last Admin: 08/18/16 22:15 Dose: 40 mg Pantoprazole Sodium (Protonix Ec Tab) 40 mg PO 0600 [facility] Last Admin: 08/19/16 05:54 Dose: 40 mg Spironolactone (Aldactone) 25 mg PO Q24H [facility] Last Admin: 08/18/16 09:37 Dose: 25 mg - Labs Labs: 08/18/16 04:20 08/18/16 04:20 APTT 58.7 Seconds (23.7-30.8) H 08/19/16 01:45 - Constitutional Appears: Non-toxic, No Acute Distress - Head Exam Head Exam: NORMAL INSPECTION - Neck Exam Neck Exam: absent: Meningismus - Respiratory Exam Respiratory Exam: Decreased Breath Sounds - Cardiovascular Exam Cardiovascular Exam: +S1, +S2 - GI/Abdominal Exam GI & Abdominal Exam: Soft. absent: Tenderness Assessment and Plan - Assessment and Plan (Free Text) Plan: Assessment Systemic Inflammatory Response Syndrome, probably due to CHF exacerbation and cOPD exacerbation, with associated bilateral pleural effusions and right lower lobe atelectasis history of right lower lobe community-acquired pneumonia COPD chronic congestive heart failure with CAD S/P PCI, with EF 35-40% (2015) DM peripheral vascular disease history of significant smoking history of diverticulitis Plan blood cx are negative - will d/c Merrem and continue on PO Doxycycline; PCT is slighty elevated at 0.54 but patient has some renal failure; reviewed results of the CT chest and 2D echo will continue to monitor clinically
[2016-08-19] MEDS: Digoxin 250 mcg (0.25 mg) Tab PO SCH (13:41)
[2016-08-19] MEDS: Insulin Lispro (HUMAlog) HIGH Coverage SC SCH ×2 (16:41→21:28)
[2016-08-20] MEDS: Albuterol-Ipratrop 3 mg / 0.5 (3 ml) UD IH SCH ×6 (04:50→20:01)
[2016-08-20] MEDS: Pantoprazole 40 mg EC Tab PO SCH (05:32)
[2016-08-20] MEDS: Insulin Lispro (HUMAlog) HIGH Coverage SC SCH ×4 (08:45→21:46)
[2016-08-20 09:09] LABS: GRAN # 14.42 (1.4-6.5); GRAN % 88.4 % (50.0-68.0); HEMOGLOBIN 8.7 gm/dL (12.0-16.0); LYMPH # 1.2 (1.2-3.4); LYMPH % 7.6 % (22.0-35.0); MEAN CELL VOLUME 87.3 fL (80.0-105.0); MEAN CORPUSCULAR HEMOGLOBIN 26.4 pg (25.0-35.0); MEAN CORPUSCULAR HGB CONC 30.2 g/dl (31.0-37.0); MEAN PLATELET VOLUME 9.2 fl (7.0-11.0); MONO # 0.7 (0.1-0.6); PLATELET COUNT 389 10^3/uL (120.0-450.0); RED CELL DISTRIBUTION WIDTH 15.5 % (11.5-14.5); WHITE BLOOD COUNT 16.3 10^3/ul (4.5-11.0)
[2016-08-20 09:20] LABS: ALB/GLOB RATIO 1.4 (1.1-1.8); ALBUMIN 4.2 g/dL (3.0-4.8); CALCIUM 10.1 mg/dL (8.4-10.5); MAGNESIUM 1.9 mg/dL (1.7-2.2)
[2016-08-20] MEDS: MethylPREDNISolone 40 mg Vial IV SCH ×3 (10:01→21:47)
[2016-08-20] MEDS: Digoxin 250 mcg (0.25 mg) Tab PO SCH (13:20)
--- NOTE | 2016-08-20 15:31 | CP.PCM.PN ---
Subjective - Date & Time of Evaluation Date of Evaluation: 08/20/16 Time of Evaluation: 15:25 - Subjective Subjective: No new complaints NSR on TELE No LE edema, No CP or SOB at rest. Objective - Vital Signs/Intake and Output Vital Signs (last 24 hours): Temp Pulse Resp BP Pulse Ox 97.3 F L 92 H 20 152/65 H 94 L 08/20/16 12:00 08/20/16 12:00 08/20/16 12:00 08/20/16 13:18 08/20/16 06:00 Intake and Output: 08/20/16 08/20/16 06:59 18:59 Intake Total 1480 Output Total 3100 Balance -1620 - Medications Medications: Current Medications Albuterol/Ipratropium (Duoneb 3 Mg/0.5 Mg (3 Ml) Ud) 3 ml IH [id number] [facility] Last Admin: 08/20/16 11:03 Dose: 3 ml Albuterol/Ipratropium (Duoneb 3 Mg/0.5 Mg (3 Ml) Ud) 3 ml IH Q2H PRN PRN Reason: Shortness of Breath Last Admin: 08/19/16 07:27 Dose: 3 ml Aspirin (Aspirin Chewable) 81 mg PO DAILY [facility] Last Admin: 08/20/16 09:59 Dose: 81 mg Atorvastatin Calcium (Lipitor) 10 mg PO DIN [facility] Last Admin: 08/19/16 17:40 Dose: 10 mg Carvedilol (Coreg) 12.5 mg PO DAILY [facility] Last Admin: 08/20/16 10:00 Dose: Not Given Carvedilol (Coreg) 25 mg PO BID [facility] Last Admin: 08/20/16 10:04 Dose: 25 mg Clopidogrel Bisulfate (Plavix) 75 mg PO DAILY [facility] Last Admin: 08/20/16 09:59 Dose: 75 mg Digoxin (Lanoxin) 0.25 mg PO 1400 [facility] Last Admin: 08/20/16 13:20 Dose: 0.25 mg Doxycycline Hyclate (Doryx) 100 mg PO Q12 [facility] PRN Reason: Protocol Last Admin: 08/20/16 09:59 Dose: 100 mg Furosemide (Lasix) 40 mg IVP TID [facility] Last Admin: 08/20/16 13:18 Dose: 40 mg Glimepiride (Amaryl) 2 mg PO ACBD [facility] Guaifenesin/Dextromethorphan (Robitussin Dm) 5 ml PO Q4H PRN PRN Reason: Cough Last Admin: 08/18/16 22:18 Dose: 5 ml Insulin Human Lispro (Humalog High) 0 units SC ACHS [facility] PRN Reason: Protocol Last Admin: 08/20/16 13:18 Dose: 12 units Lisinopril (Zestril) 20 mg PO DIN [facility] Last Admin: 08/19/16 17:40 Dose: 20 mg Methylprednisolone (Solu-Medrol) 40 mg IV Q12 [facility] Last Admin: 08/20/16 10:01 Dose: Not Given Methylprednisolone (Solu-Medrol) 20 mg IV Q12 [facility] Last Admin: 08/20/16 10:05 Dose: 20 mg Pantoprazole Sodium (Protonix Ec Tab) 40 mg PO 0600 [facility] Last Admin: 08/20/16 05:32 Dose: 40 mg Spironolactone (Aldactone) 25 mg PO Q24H [facility] Last Admin: 08/20/16 09:59 Dose: 25 mg - Labs Labs: 08/20/16 08:57 08/20/16 08:57 APTT 33.6 Seconds (23.7-30.8) H 08/19/16 09:30 - Constitutional Appears: No Acute Distress, Older Than Stated Age, Chronically Ill - Head Exam Head Exam: ATRAUMATIC, NORMAL INSPECTION, NORMOCEPHALIC - Eye Exam Eye Exam: EOMI, Normal appearance, PERRL - ENT Exam ENT Exam: Mucous Membranes Moist, Normal Oropharynx - Neck Exam Neck Exam: Full ROM. absent: Tenderness - Respiratory Exam Respiratory Exam: Clear to Ausculation Bilateral, NORMAL BREATHING PATTERN. absent: Rhonchi, Wheezes - Cardiovascular Exam Cardiovascular Exam: REGULAR RHYTHM, +S1, +S2. absent: Gallop, Murmur - GI/Abdominal Exam GI & Abdominal Exam: Soft, Normal Bowel Sounds. absent: Organomegaly, Rebound - Neurological Exam Neurological Exam: Alert, Awake, Oriented x3 - Psychiatric Exam Psychiatric exam: Normal Affect, Normal Mood - Skin Skin Exam: Normal Color, Warm Assessment and Plan - Assessment and Plan (Free Text) Assessment: 2D echo images viewed by me directly: Severe LV dysfunction with EF 20-35%, Elevated left atrial pressure Stage II diastolic dysfunction, no hemodynamically significant valve lesions A/P: 61 year old female with severe ischemic cardiomypathy she came to [facility] for severe cough and shortness of breath which in in the setting of elevated left atrial pressure is likely due to acute on chronic systolic CHF. She also has a long history of tobacco abuse so likely has a concomitant COPD exacerbation. * With continued IV diuresis she is more euvolemic her respiratory status has improved. * I agree with simultanous empiric treatment with steroids and antibiotics * Chest pain has resolved: * NSTEMI - minimially elevated troponin is likely to due ventricular strain in the setting of cardiomyopathy. I think its safe to d/c anticoagulation and resume DVT prophylaxsis. Continue dual anti platelet therapy for severe CAD. Add ranexa 500 BID and IMDUR 30 daily. * 04/2012: peripheral angiogram 100% L. popliteal artery stenosis with reconstitution of distal popliteal and moderate B/L below knee vessel disease. ( Unable to cross occlusion at that time) * 12/22/15: Cardiac cath: TANG to mid and distal LAD, moderate disease RCA and its branches and LCX, calcified coronaries EF 40-45% Patient needs Rx for Ischemic Cardiomyopathy - Increase coreg 25 BID , Aldactone 25 daily, Lasix, GENEVIEVE-I I wonder if we should stop GENEVIEVE and switch to ARB if her cough is not improved with diuresis. Ultimately as an out patient she will need to start Entresto which is an ARNI ( Angitensin receptor and neprolysis inhibitor) to maximize CHF therapy. Encouarge physical therapy D/C planning * Monitor H/Has on DAPT and has concomitant anemia without any reported gross bleeding. F/U with me as out patient.
[2016-08-20] MEDS ORDERED: Insulin Lispro 1 UNITS/0.01 ML SC STA (21:33)
--- NOTE | 2016-08-20 21:33 | CP.PCM.PN ---
Subjective - Date & Time of Evaluation Date of Evaluation: 08/20/16 Time of Evaluation: 21:32 - Subjective Subjective: S:Seen for FSBS : 413 mg %. Asymptomatic. Pertinent medical record was reviewed. O:VSS. Alert, awake,not in distress. LUNGS:Normal breathing pattern. A:Hyperglycemia. P:D50 % , 50 CC IV x 1. Objective - Vital Signs/Intake and Output Vital Signs (last 24 hours): Temp Pulse Resp BP Pulse Ox 98.1 F 65 19 119/56 L 94 L 08/20/16 18:00 08/20/16 18:00 08/20/16 18:00 08/20/16 18:00 08/20/16 06:00 - Medications Medications: Current Medications Albuterol/Ipratropium (Duoneb 3 Mg/0.5 Mg (3 Ml) Ud) 3 ml IH [id number] [facility] Last Admin: 08/20/16 20:01 Dose: 3 ml Albuterol/Ipratropium (Duoneb 3 Mg/0.5 Mg (3 Ml) Ud) 3 ml IH Q2H PRN PRN Reason: Shortness of Breath Last Admin: 08/19/16 07:27 Dose: 3 ml Aspirin (Aspirin Chewable) 81 mg PO DAILY [facility] Last Admin: 08/20/16 09:59 Dose: 81 mg Atorvastatin Calcium (Lipitor) 10 mg PO DIN [facility] Last Admin: 08/20/16 16:46 Dose: 10 mg Carvedilol (Coreg) 25 mg PO BID [facility] Last Admin: 08/20/16 17:19 Dose: 25 mg Clopidogrel Bisulfate (Plavix) 75 mg PO DAILY [facility] Last Admin: 08/20/16 09:59 Dose: 75 mg Digoxin (Lanoxin) 0.25 mg PO 1400 [facility] Last Admin: 08/20/16 13:20 Dose: 0.25 mg Doxycycline Hyclate (Doryx) 100 mg PO Q12 [facility] PRN Reason: Protocol Last Admin: 08/20/16 09:59 Dose: 100 mg Furosemide (Lasix) 40 mg IVP TID [facility] Last Admin: 08/20/16 17:19 Dose: 40 mg Glimepiride (Amaryl) 2 mg PO ACBD [facility] Last Admin: 08/20/16 16:46 Dose: 2 mg Guaifenesin/Dextromethorphan (Robitussin Dm) 5 ml PO Q4H PRN PRN Reason: Cough Last Admin: 08/18/16 22:18 Dose: 5 ml Insulin Human Lispro (Humalog High) 0 units SC ACHS [facility] PRN Reason: Protocol Last Admin: 08/20/16 16:46 Dose: 10 units Lisinopril (Zestril) 20 mg PO DIN [facility] Last Admin: 08/20/16 17:19 Dose: 20 mg Methylprednisolone (Solu-Medrol) 20 mg IV Q12 [facility] Last Admin: 08/20/16 10:05 Dose: 20 mg Pantoprazole Sodium (Protonix Ec Tab) 40 mg PO 0600 [facility] Last Admin: 08/20/16 05:32 Dose: 40 mg Spironolactone (Aldactone) 25 mg PO Q24H [facility] Last Admin: 08/20/16 09:59 Dose: 25 mg - Labs Labs: 08/20/16 08:57 08/20/16 08:57 APTT 33.6 Seconds (23.7-30.8) H 08/19/16 09:30
[2016-08-21] MEDS: Albuterol-Ipratrop 3 mg / 0.5 (3 ml) UD IH SCH ×6 (00:05→23:20)
--- NOTE | 2016-08-21 05:15 | CP.PCM.PN ---
Subjective - Date & Time of Evaluation Date of Evaluation: 08/21/16 Time of Evaluation: 05:13 - Subjective Subjective: S:FSBS 413 mg %. Asymptomatic. Pertinent medical record reviewed. O: Last Vital Signs 3 Temp 97.9 F 08/21/16 00:01 Pulse 69 08/21/16 05:01 Resp 20 08/21/16 00:01 BP 145/72 08/21/16 00:01 Pulse Ox 98 08/21/16 00:01 Awake, alert , not in distress. LUNGS:Normal breathing pattern. A:Hyperglycemia. P:Humalog 6 Units SC stat. Objective - Vital Signs/Intake and Output Vital Signs (last 24 hours): Temp Pulse Resp BP Pulse Ox 97.9 F 69 20 145/72 98 08/21/16 00:01 08/21/16 05:01 08/21/16 00:01 08/21/16 00:01 08/21/16 00:01 - Medications Medications: Current Medications Albuterol/Ipratropium (Duoneb 3 Mg/0.5 Mg (3 Ml) Ud) 3 ml IH [id number] [facility] Last Admin: 08/21/16 00:05 Dose: 3 ml Albuterol/Ipratropium (Duoneb 3 Mg/0.5 Mg (3 Ml) Ud) 3 ml IH Q2H PRN PRN Reason: Shortness of Breath Last Admin: 08/19/16 07:27 Dose: 3 ml Aspirin (Aspirin Chewable) 81 mg PO DAILY [facility] Last Admin: 08/20/16 09:59 Dose: 81 mg Atorvastatin Calcium (Lipitor) 10 mg PO DIN [facility] Last Admin: 08/20/16 16:46 Dose: 10 mg Carvedilol (Coreg) 25 mg PO BID [facility] Last Admin: 08/20/16 17:19 Dose: 25 mg Clopidogrel Bisulfate (Plavix) 75 mg PO DAILY [facility] Last Admin: 08/20/16 09:59 Dose: 75 mg Digoxin (Lanoxin) 0.25 mg PO 1400 [facility] Last Admin: 08/20/16 13:20 Dose: 0.25 mg Doxycycline Hyclate (Doryx) 100 mg PO Q12 [facility] PRN Reason: Protocol Last Admin: 08/20/16 21:47 Dose: 100 mg Furosemide (Lasix) 40 mg IVP TID [facility] Last Admin: 08/20/16 17:19 Dose: 40 mg Glimepiride (Amaryl) 2 mg PO ACBD [facility] Last Admin: 08/20/16 16:46 Dose: 2 mg Guaifenesin/Dextromethorphan (Robitussin Dm) 5 ml PO Q4H PRN PRN Reason: Cough Last Admin: 08/18/16 22:18 Dose: 5 ml Insulin Human Lispro (Humalog High) 0 units SC ACHS [facility] PRN Reason: Protocol Last Admin: 08/20/16 21:46 Dose: Not Given Lisinopril (Zestril) 20 mg PO DIN [facility] Last Admin: 08/20/16 17:19 Dose: 20 mg Methylprednisolone (Solu-Medrol) 20 mg IV Q12 [facility] Last Admin: 08/20/16 21:47 Dose: 20 mg Pantoprazole Sodium (Protonix Ec Tab) 40 mg PO 0600 [facility] Last Admin: 08/20/16 05:32 Dose: 40 mg Spironolactone (Aldactone) 25 mg PO Q24H [facility] Last Admin: 08/20/16 09:59 Dose: 25 mg - Labs Labs: 08/20/16 08:57 08/20/16 08:57 APTT 33.6 Seconds (23.7-30.8) H 08/19/16 09:30
[2016-08-21] MEDS: Pantoprazole 40 mg EC Tab PO SCH (05:35)
[2016-08-21] MEDS: Insulin Lispro (HUMAlog) HIGH Coverage SC SCH ×4 (07:56→21:39)
[2016-08-21] MEDS ORDERED: Insulin Lispro (humaLOG) MIX 75/25(10 ml) SC ONE (09:18)
--- NOTE | 2016-08-21 11:21 | CP.PCM.PN ---
Subjective - Date & Time of Evaluation Date of Evaluation: 08/21/16 Time of Evaluation: 10:20 - Subjective Subjective: Comfortable in bed, not in distress, afebrile, breathing better. Objective - Vital Signs/Intake and Output Vital Signs (last 24 hours): Temp Pulse Resp BP Pulse Ox 97.5 F L 70 19 157/73 H 94 L 08/20/16 06:00 08/20/16 06:00 08/20/16 06:00 08/20/16 06:00 08/20/16 06:00 Intake and Output: 08/20/16 08/20/16 06:59 18:59 Intake Total 1480 Output Total 3100 Balance -1620 - Medications Medications: Current Medications Albuterol/Ipratropium (Duoneb 3 Mg/0.5 Mg (3 Ml) Ud) 3 ml IH [id number] [facility] Last Admin: 08/20/16 08:05 Dose: Not Given Albuterol/Ipratropium (Duoneb 3 Mg/0.5 Mg (3 Ml) Ud) 3 ml IH Q2H PRN PRN Reason: Shortness of Breath Last Admin: 08/19/16 07:27 Dose: 3 ml Aspirin (Aspirin Chewable) 81 mg PO DAILY [facility] Last Admin: 08/19/16 10:47 Dose: 81 mg Atorvastatin Calcium (Lipitor) 10 mg PO DIN [facility] Last Admin: 08/19/16 17:40 Dose: 10 mg Carvedilol (Coreg) 12.5 mg PO DAILY [facility] Last Admin: 08/19/16 10:47 Dose: 12.5 mg Carvedilol (Coreg) 25 mg PO BID [facility] Last Admin: 08/19/16 17:39 Dose: 25 mg Clopidogrel Bisulfate (Plavix) 75 mg PO DAILY [facility] Last Admin: 08/19/16 10:47 Dose: 75 mg Digoxin (Lanoxin) 0.25 mg PO 1400 [facility] Last Admin: 08/19/16 13:41 Dose: 0.25 mg Doxycycline Hyclate (Doryx) 100 mg PO Q12 [facility] PRN Reason: Protocol Last Admin: 08/19/16 21:30 Dose: 100 mg Furosemide (Lasix) 40 mg IVP TID [facility] Last Admin: 08/19/16 17:39 Dose: 40 mg Guaifenesin/Dextromethorphan (Robitussin Dm) 5 ml PO Q4H PRN PRN Reason: Cough Last Admin: 08/18/16 22:18 Dose: 5 ml Insulin Human Lispro (Humalog High) 0 units SC ACHS [facility] PRN Reason: Protocol Last Admin: 08/20/16 08:45 Dose: 7 units Lisinopril (Zestril) 20 mg PO DIN [facility] Last Admin: 08/19/16 17:40 Dose: 20 mg Methylprednisolone (Solu-Medrol) 40 mg IV Q12 [facility] Last Admin: 08/19/16 21:31 Dose: 40 mg Pantoprazole Sodium (Protonix Ec Tab) 40 mg PO 0600 [facility] Last Admin: 08/20/16 05:32 Dose: 40 mg Spironolactone (Aldactone) 25 mg PO Q24H [facility] Last Admin: 08/19/16 10:46 Dose: 25 mg - Labs Labs: 08/19/16 07:30 08/19/16 05:00 APTT 33.6 Seconds (23.7-30.8) H 08/19/16 09:30 - Constitutional Appears: Non-toxic, No Acute Distress - Head Exam Head Exam: NORMAL INSPECTION - Neck Exam Neck Exam: absent: Meningismus - Respiratory Exam Respiratory Exam: Decreased Breath Sounds - Cardiovascular Exam Cardiovascular Exam: +S1, +S2 - GI/Abdominal Exam GI & Abdominal Exam: Soft. absent: Tenderness Assessment and Plan - Assessment and Plan (Free Text) Plan: Assessment Systemic Inflammatory Response Syndrome, probably due to CHF exacerbation and COPD exacerbation, with associated bilateral pleural effusions and right lower lobe atelectasis history of right lower lobe community-acquired pneumonia COPD chronic congestive heart failure with CAD S/P PCI, with EF 35-40% (2015) DM peripheral vascular disease history of significant smoking history of diverticulitis Plan blood cx are negative - continue on PO Doxycycline for another 1-2 days; PCT is slighty elevated at 0.54 but patient has some renal failure; reviewed results of the CT chest and 2D echo will continue to monitor clinically
[2016-08-21] MEDS: Digoxin 250 mcg (0.25 mg) Tab PO SCH (14:57)
[2016-08-21] MEDS: Insulin Lispro (humaLOG) MIX 75/25(10 ml) SC SCH (17:05)
[2016-08-22] MEDS: Albuterol-Ipratrop 3 mg / 0.5 (3 ml) UD IH SCH ×4 (04:01→14:42)
[2016-08-22] MEDS: Pantoprazole 40 mg EC Tab PO SCH (06:01)
[2016-08-22] MEDS: Insulin Lispro (HUMAlog) HIGH Coverage SC SCH ×4 (08:18→21:53)
[2016-08-22] MEDS: Insulin Lispro (humaLOG) MIX 75/25(10 ml) SC SCH ×2 (08:19→18:20)
[2016-08-22] MEDS: guaiFENesin DM 100 mg-10 mg/5 ml UD PO PRN ×3 (08:44→22:02)
[2016-08-22 14:49] LABS: ARTERIAL BLOOD GAS HCO3 35.9 mmol/L (21-28); ARTERIAL BLOOD GAS HEMOGLOBIN 8.8 g/dL (11.7-17.4); ARTERIAL BLOOD GAS O2 CAPACITY 12.1 mL/dl (16-24); ARTERIAL BLOOD GAS O2 CONTENT 11.5 ML/dl (15-23); ARTERIAL BLOOD GAS O2 SAT 95.1 % (95-98); ARTERIAL BLOOD GAS PCO2 46 mm/Hg (35-45); ARTERIAL BLOOD GAS TCO2 37.3 mmol.L (22-28)
[2016-08-22] MEDS: Digoxin 250 mcg (0.25 mg) Tab PO SCH (15:05)
--- NOTE | 2016-08-22 15:40 | CP.PCM.CON ---
History of Present Illness - History of Present Illness History of Present Illness: The patient is a 60 year old woman with a medical history of NIDDM, PVD cardiomyopathy, CAD with stent COPD orthpnea and chronic tobacco use who presents with 1 week of progressively worsening shortness of breath, 2-3 pillow orthopnea and PND. Of note, because the patient is intubated and sedated, details of her history were obtained from her who was at bedside. According to the , she has not recently complained of fevers, chills, chest pain, altered mentation, bowel abnormalities or dysuria. Shes has a chronic dry cough which has not changed in recent days. the patients shortness of breath became worse and therefore EMS was called. The patient arrived to the ED on CPAP in respiratory distress and therefore was intubated. presently extubated in telemetry, suppose to go home, but again develope SOB and my consult been called according to she has load night snoring, and day time sleepiness. did not use B PAP for last few night, since out of ICU, last ECHO suggestive worsening of LV function Review of Systems - Review of Systems Systems not reviewed;Unavailable: Respiratory Distress - Constitutional Constitutional: Daytime Sleepiness, Fatigue, Snoring, Sleep Apnea - EENT Eyes: absent: Blurred Vision, Diplopia, Discharge Ears: absent: Ear Discharge, Ear Pain Nose/Mouth/Throat: absent: Epistaxis, Nasal Congestion, Nasal Discharge, Sinus Pain, Sinus Pressure, Dry Mouth - Cardiovascular Cardiovascular: Dyspnea, Edema, Paroxysmal Nocturnal Dyspnea - Respiratory Respiratory: Cough, Dyspnea, Wheezing, Snoring, Chest Congestion. absent: Hemoptysis - Gastrointestinal Gastrointestinal: absent: Abdominal Pain, Constipation, Dysphagia - Musculoskeletal Musculoskeletal: absent: Arthralgias, Atrophy, Back Pain - Neurological Neurological: absent: Dizziness, Focal Weakness - Psychiatric Psychiatric: absent: Behavioral Changes, Confusion, Depression - Endocrine Endocrine: absent: Excessive Sweating, Flushing - Hematologic/Lymphatic Hematologic: absent: Easy Bleeding, Easy Bruising Past Patient History - Infectious Disease Hx of Infectious Diseases: None - Past Social History Smoking Status: Former Smoker - CARDIAC Hx Cardiac Disorders: Yes Hx Angina: No Hx Cardia Arrhythmia: No Hx Circulatory Problems: Yes Hx Congestive Heart Failure: No Hx Heart Murmur: No Hx Heart Transplant: No Hx Hypertension: Yes Hx Internal Defibrillator: No Hx Mitral Valve Prolapse: No Hx Pacemaker: No Hx Peripheral Edema: No Hx Peripheral Vascular Disease: Yes - PULMONARY Hx Respiratory Disorders: Yes Hx Asthma: No Hx Bronchitis: No Hx Chronic Obstructive Pulmonary Disease (COPD): Yes Hx Emphysema: No Hx Pneumonia: Yes Hx Respiratory Aspiration: No Hx Respiratory Tract Infection: No Hx Sleep Apnea: No Hx Tuberculosis: No - NEUROLOGICAL Hx Neurological Disorder: No Hx Alzheimer's Disease: No HX Cerebrovascular Accident: No Hx Dementia: No Hx Dizziness: No Hx Meningitis: No Hx Migraine: No Hx Parkinson's Disease: No Hx Seizures: No Hx Transient Ischemic Attacks (TIA): No - HEENT Hx HEENT Problems: No Hx Blind: No Hx Cataracts: No Hx Deafness: No Hx Difficulty Chewing: No Hx Epistaxis: No Hx Glaucoma: No Hx Macular Degeneration: No - RENAL Hx Chronic Kidney Disease: No Hx Dialysis: No Hx Kidney Stones: No Hx Neurogenic Bladder: No Hx Pyelonephritis: No Hx Renal (Kidney) Cancer: No Hx Renal Failure: No - ENDOCRINE/METABOLIC Hx Endocrine Disorders: Yes Hx Adrenal Cancer: No Hx Diabetes Insipidus: No Hx Diabetes Mellitus Type 1: No Hx Diabetes Mellitus Type 2: Yes Hx Hyperthyroidism: No Hx Hypothyroidism: No Hx Systemic Lupus Erythematosus: No - HEMATOLOGICAL/ONCOLOGICAL Hx Blood Disorders: No Hx AIDS: No Hx Anemia: No Hx Cancer: No Hx Chemotherapy: No Hx Cirrhosis: No Hx Hemophilia: No Hx Hepatitis A: No Hx Hepatitis B: No Hx Hepatitis C: No Hx Metastesis: No Hx Shingles: No Hx Sickle Cell Disease: No Hx Unexplained Bleeding: No - INTEGUMENTARY Hx Dermatological Problems: No Hx Basil Cell: No Hx Eczema: No Hx Melanoma: No Hx Psoriasis: No Hx Squamous Cell: No - MUSCULOSKELETAL/RHEUMATOLOGICAL Hx Falls: No - GASTROINTESTINAL Hx Gastrointestinal Disorders: No Hx Colostomy: No Hx Crohn's Disease: No Hx Diverticulitis: No Hx Gall Bladder Disease: No Hx Gastroesophageal Reflux: No Hx Ileostomy: No Hx Liver Failure: No Hx Pancreatitis: No HX Swallowing Problems: No - GENITOURINARY/GYNECOLOGICAL Hx Genitourinary Disorders: No Hx Hematuria: No Hx Incontinence: No Hx Sexually Transmitted Disorders: No Hx Urinary Tract Infection: No - PSYCHIATRIC Hx Psychophysiologic Disorder: No Hx Anxiety: No Hx Bipolar Disorder: No Hx Depression: No Hx Emotional Abuse: No Hx Hallucinations: No Hx Panic Symptoms: No Hx Post Traumatic Stress Disorder: No Hx Psychosis: No Hx Physical Abuse: No Hx Schizophrenia: No Hx Sexual Abuse: No - SURGICAL HISTORY Hx Amputation: No Hx Appendectomy: No Hx Cardiac Catheterization: Yes Hx Cholecystectomy: No Hx Coronary Stent: Yes Hx Gastric Bypass Surgery: No Hx Hysterectomy: No Hx Joint Replacement: No Hx Kidney Transplant: No Hx Liver Transplant: No Hx Mastectomy: No Hx Musculoskeletal Surgery: No Hx Open Heart Surgery: No Hx Orthopedic Surgery: No Hx Splenectomy: No Hx Valve Replacement: No - ANESTHESIA Hx Anesthesia Reactions: No Hx Malignant Hyperthermia: No Meds Allergies/Adverse Reactions: Allergies Allergy/AdvReac Type Severity Reaction Status Date / Time codeine Allergy DIZZINESS Verified 08/17/16 03:27 erythromycin base Allergy ANAPHYLAXIS Verified 08/17/16 03:27 promethazine Allergy HEADACHE Verified 08/17/16 03:27 ciprofloxacin [From Cipro] AdvReac DIZZINESS Verified 08/17/16 03:27 ciprofloxacin HCl AdvReac DIZZINESS Verified 08/17/16 03:27 [From Cipro] - Medications Medications: Current Medications Albuterol/Ipratropium (Duoneb 3 Mg/0.5 Mg (3 Ml) Ud) 3 ml IH [id number] [facility] Last Admin: 08/22/16 14:42 Dose: 3 ml Albuterol/Ipratropium (Duoneb 3 Mg/0.5 Mg (3 Ml) Ud) 3 ml IH Q2H PRN PRN Reason: Shortness of Breath Last Admin: 08/19/16 07:27 Dose: 3 ml Aspirin (Aspirin Chewable) 81 mg PO DAILY [facility] Last Admin: 08/22/16 10:18 Dose: 81 mg Atorvastatin Calcium (Lipitor) 10 mg PO DIN [facility] Last Admin: 08/21/16 17:05 Dose: 10 mg Carvedilol (Coreg) 25 mg PO BID [facility] Last Admin: 08/22/16 10:18 Dose: 25 mg Clopidogrel Bisulfate (Plavix) 75 mg PO DAILY [facility] Last Admin: 08/22/16 10:18 Dose: 75 mg Digoxin (Lanoxin) 0.25 mg PO 1400 [facility] Last Admin: 08/22/16 15:05 Dose: 0.25 mg Doxycycline Hyclate (Doryx) 100 mg PO Q12 [facility] PRN Reason: Protocol Last Admin: 08/22/16 10:18 Dose: 100 mg Furosemide (Lasix) 40 mg IVP TID [facility] Last Admin: 08/22/16 15:12 Dose: 40 mg Glimepiride (Amaryl) 4 mg PO ACBD [facility] Last Admin: 08/22/16 08:19 Dose: 4 mg Guaifenesin/Dextromethorphan (Robitussin Dm) 5 ml PO Q4H PRN PRN Reason: Cough Last Admin: 08/22/16 15:05 Dose: 5 ml Insulin Human Lispro (Humalog High) 0 units SC ACHS [facility] PRN Reason: Protocol Last Admin: 08/22/16 12:18 Dose: 4 units Insulin Lispro Protam/Lispro Human (Humalog Mix 75/25) 10 units SC ACBD [facility] Last Admin: 08/22/16 08:19 Dose: 10 unit Lisinopril (Zestril) 20 mg PO DIN [facility] Last Admin: 08/21/16 17:16 Dose: 20 mg Pantoprazole Sodium (Protonix Ec Tab) 40 mg PO 0600 [facility] Last Admin: 08/22/16 06:01 Dose: 40 mg Spironolactone (Aldactone) 25 mg PO Q24H [facility] Last Admin: 08/22/16 08:44 Dose: 25 mg Physical Exam - Constitutional Appears: No Acute Distress - Head Exam Head Exam: ATRAUMATIC, NORMAL INSPECTION, NORMOCEPHALIC - ENT Exam Additional comments: adentulus small oral cavity - Neck Exam Neck exam: Positive for: Normal Inspection - Respiratory Exam Respiratory Exam: Rales - Cardiovascular Exam Cardiovascular Exam: REGULAR RHYTHM - Neurological Exam Neurological exam: Alert, CN II-XII Intact, Normal Gait, Oriented x3, Reflexes Normal - Psychiatric Exam Psychiatric exam: Flat Affect Results - Vital Signs Recent Vital Signs: Last Vital Signs Temp 97 F L 08/22/16 11:37 Pulse 69 08/22/16 11:37 Resp 19 08/22/16 11:37 BP 113/52 L 08/22/16 15:12 Pulse Ox 100 08/22/16 06:00 - Labs Result Diagrams: 08/20/16 08:57 08/20/16 08:57 Labs: Laboratory Results - last 24 hr 08/21/16 08/21/16 08/22/16 16:14 21:27 07:31 pCO2 pO2 HCO3 ABG pH ABG Total CO2 ABG O2 Saturation ABG O2 Content ABG Base Excess ABG Hemoglobin ABG Carboxyhemoglobin POC ABG HHb (Measured) ABG Methemoglobin ABG O2 Capacity Hgb O2 Saturation FiO2 POC Glucose (mg/dL) 183 H 262 H 165 H 08/22/16 08/22/16 11:04 14:45 pCO2 46 H pO2 61.0 L HCO3 35.9 H ABG pH 7.50 H ABG Total CO2 37.3 H ABG O2 Saturation 95.1 ABG O2 Content 11.5 L ABG Base Excess 11.5 H ABG Hemoglobin 8.8 L ABG Carboxyhemoglobin 1.9 H POC ABG HHb (Measured) 4.8 ABG Methemoglobin 1.1 ABG O2 Capacity 12.1 L Hgb O2 Saturation 92.2 L FiO2 21.0 POC Glucose (mg/dL) 231 H - Imaging and Cardiology CT scan - chest Status: Report reviewed by me Assessment & Plan (1) Ischemic cardiomyopathy Assessment and Plan: being follow by cardiology, reason for worsening LV function,is it further ischemia or RONNIE, may need further cardiac workup, may benifit from 2 to 3 days of dobutamin or primacore Status: Acute (2) RONNIE (obstructive sleep apnea) Assessment and Plan: readjust B PAP, sleep apnea precaution, out patient sleep study Status: Acute (3) Chronic obstructive airway disease Assessment and Plan: inhale bronchodilators, add daliresp po Status: Acute (4) Congestive heart failure Assessment and Plan: fluid restriction, Status: Acute
--- NOTE | 2016-08-22 18:30 | CP.PCM.PN ---
Subjective - Date & Time of Evaluation Date of Evaluation: 08/22/16 Time of Evaluation: 18:24 - Subjective Subjective: pt is c/o generalized weakness. pt states she was receieving high doses of solumedrol and it was suddenly stopped and thinks probably that is the reason. pt,s bp is 139/78,HR 71 sinus rhythm . accu check is 180, and pulse ox is 98 % .pt denies cp ,sob.head ache dizziness or palpitation. Objective - Vital Signs/Intake and Output Vital Signs (last 24 hours): Temp Pulse Resp BP Pulse Ox 98.3 F 67 19 167/62 H 100 08/22/16 18:00 08/22/16 18:12 08/22/16 18:00 08/22/16 18:12 08/22/16 06:00 - Medications Medications: Current Medications Acetylcysteine (Acetylcysteine 20%) 3 ml INH BID [facility] Albuterol/Ipratropium (Duoneb 3 Mg/0.5 Mg (3 Ml) Ud) 3 ml IH Q2H PRN PRN Reason: Shortness of Breath Last Admin: 08/19/16 07:27 Dose: 3 ml Arformoterol Tartrate (Brovana) 15 mcg IH [id number] [facility] Aspirin (Aspirin Chewable) 81 mg PO DAILY [facility] Last Admin: 08/22/16 10:18 Dose: 81 mg Atorvastatin Calcium (Lipitor) 10 mg PO DIN [facility] Last Admin: 08/22/16 18:12 Dose: 10 mg Budesonide (Pulmicort Respules) 0.5 mg IH [id number] [facility] Carvedilol (Coreg) 25 mg PO BID [facility] Last Admin: 08/22/16 18:08 Dose: 25 mg Clopidogrel Bisulfate (Plavix) 75 mg PO DAILY [facility] Last Admin: 08/22/16 10:18 Dose: 75 mg Digoxin (Lanoxin) 0.25 mg PO 1400 [facility] Last Admin: 08/22/16 15:05 Dose: 0.25 mg Doxycycline Hyclate (Doryx) 100 mg PO Q12 [facility] PRN Reason: Protocol Last Admin: 08/22/16 10:18 Dose: 100 mg Furosemide (Lasix) 40 mg IVP TID [facility] Last Admin: 08/22/16 18:11 Dose: 40 mg Glimepiride (Amaryl) 4 mg PO ACBD [facility] Last Admin: 08/22/16 18:06 Dose: 4 mg Guaifenesin/Dextromethorphan (Robitussin Dm) 5 ml PO Q4H PRN PRN Reason: Cough Last Admin: 08/22/16 15:05 Dose: 5 ml Insulin Human Lispro (Humalog High) 0 units SC ACHS [facility] PRN Reason: Protocol Last Admin: 08/22/16 18:11 Dose: 2 units Insulin Lispro Protam/Lispro Human (Humalog Mix 75/25) 10 units SC ACBD [facility] Last Admin: 08/22/16 18:20 Dose: 10 unit Lisinopril (Zestril) 20 mg PO DIN [facility] Last Admin: 08/22/16 18:12 Dose: 20 mg Pantoprazole Sodium (Protonix Ec Tab) 40 mg PO 0600 [facility] Last Admin: 08/22/16 06:01 Dose: 40 mg Roflumilast (Daliresp) 500 mcg PO DAILY [facility] Spironolactone (Aldactone) 25 mg PO Q24H [facility] Last Admin: 08/22/16 08:44 Dose: 25 mg - Labs Labs: 08/20/16 08:57 08/20/16 08:57 APTT 33.6 Seconds (23.7-30.8) H 08/19/16 09:30 - Constitutional Appears: No Acute Distress - Head Exam Head Exam: NORMOCEPHALIC - Eye Exam Eye Exam: Normal appearance Pupil Exam: PERRL - ENT Exam ENT Exam: Mucous Membranes Moist - Neck Exam Neck Exam: Full ROM - Respiratory Exam Respiratory Exam: Clear to Ausculation Bilateral - Cardiovascular Exam Cardiovascular Exam: RRR, +S1, +S2 - GI/Abdominal Exam GI & Abdominal Exam: Soft, Normal Bowel Sounds - Rectal Exam Rectal Exam: Deferred - Extremities Exam Extremities Exam: Full ROM - Psychiatric Exam Psychiatric exam: Normal Affect Assessment and Plan - Assessment and Plan (Free Text) Assessment: generalized weakness.pt is on multiple meds.low EF AND HX of CHF. Plan: cbc cmp ekg cardiac iso ca , mg .
[2016-08-22 18:45] LABS: BASO # 0.01 K/mm3 (0.0-2.0); BASO % 0.1 % (0.0-3.0); EOS # 0.5 (0.0-0.7); EOS % 2.7 % (1.5-5.0); GRAN # 11.94 (1.4-6.5); GRAN % 68.1 % (50.0-68.0); HEMOGLOBIN 9.9 gm/dL (12.0-16.0); LYMPH # 3.9 (1.2-3.4); LYMPH % 22.4 % (22.0-35.0); MEAN CELL VOLUME 87.5 fL (80.0-105.0); MEAN CORPUSCULAR HGB CONC 30.8 g/dl (31.0-37.0); MEAN PLATELET VOLUME 9.9 fl (7.0-11.0); MONO # 1.2 (0.1-0.6); MONO % 6.7 % (1.0-6.0); PLATELET COUNT 438 10^3/uL (120.0-450.0); RBC 3.67 10^6/uL (3.5-6.1); RED CELL DISTRIBUTION WIDTH 15.5 % (11.5-14.5); WHITE BLOOD COUNT 17.5 10^3/ul (4.5-11.0)
[2016-08-22 18:53] LABS: BLOOD UREA NITROGEN 61 mg/dL (7-21); CALCIUM 9.5 mg/dL (8.4-10.5); GFR AFRICAN-AMERICAN 50; GFR NON-AFRICAN AMERICAN 42; MAGNESIUM 2.1 mg/dL (1.7-2.2)
[2016-08-22 19:18] LABS: TROPONIN I 1.42 ng/mL
[2016-08-22] MEDS: Budesonide 0.5 mg/2 ml Inhal Susp UD IH SCH (19:51)
[2016-08-22] MEDS: Acetylcysteine 20% Inhal Soln (4ml) INH SCH (19:51)
[2016-08-22] MEDS: Arformoterol 15 mcg/2 ml Inh Sol IH SCH (19:51)
[2016-08-22] MEDS: Albuterol-Ipratrop 3 mg / 0.5 (3 ml) UD IH PRN (23:47)
[2016-08-23] MEDS: guaiFENesin DM 100 mg-10 mg/5 ml UD PO PRN ×3 (03:36→23:39)
[2016-08-23] MEDS: Pantoprazole 40 mg EC Tab PO SCH (05:03)
[2016-08-23 07:50] LABS: BASO # 0.01 K/mm3 (0.0-2.0); BASO % 0.1 % (0.0-3.0); EOS # 1.1 (0.0-0.7); EOS % 6.5 % (1.5-5.0); GRAN # 11.25 (1.4-6.5); GRAN % 65.1 % (50.0-68.0); HEMOGLOBIN 9.4 gm/dL (12.0-16.0); LYMPH # 3.7 (1.2-3.4); LYMPH % 21.6 % (22.0-35.0); MEAN CELL VOLUME 87.7 fL (80.0-105.0); MEAN CORPUSCULAR HEMOGLOBIN 26.8 pg (25.0-35.0); MEAN CORPUSCULAR HGB CONC 30.5 g/dl (31.0-37.0); MEAN PLATELET VOLUME 10.1 fl (7.0-11.0); MONO # 1.2 (0.1-0.6); MONO % 6.7 % (1.0-6.0); PLATELET COUNT 418 10^3/uL (120.0-450.0); RBC 3.51 10^6/uL (3.5-6.1); RED CELL DISTRIBUTION WIDTH 15.5 % (11.5-14.5); WHITE BLOOD COUNT 17.3 10^3/ul (4.5-11.0)
[2016-08-23 08:00] LABS: ALB/GLOB RATIO 1.2 (1.1-1.8); ALBUMIN 3.3 g/dL (3.0-4.8); CALCIUM 9.1 mg/dL (8.4-10.5)
[2016-08-23] MEDS: Arformoterol 15 mcg/2 ml Inh Sol IH SCH ×2 (08:03→19:51)
[2016-08-23] MEDS: Acetylcysteine 20% Inhal Soln (4ml) INH SCH ×3 (08:03→19:54)
[2016-08-23] MEDS: Budesonide 0.5 mg/2 ml Inhal Susp UD IH SCH ×2 (08:04→19:51)
[2016-08-23] MEDS: Insulin Lispro (humaLOG) MIX 75/25(10 ml) SC SCH ×2 (08:26→17:41)
[2016-08-23] MEDS: Insulin Lispro (HUMAlog) HIGH Coverage SC SCH ×4 (08:27→22:10)
--- NOTE | 2016-08-23 10:51 | CARD ---
APPROVED REPORT EKG Measurement Heart [id number] <Conclusion> Normal sinus rhythm ST & T wave abnormality, consider lateral ischemia Abnormal ECG
--- NOTE | 2016-08-23 10:55 | CP.PCM.PN ---
Subjective - Date & Time of Evaluation Date of Evaluation: 08/23/16 Time of Evaluation: 10:52 - Subjective Subjective: Events noted Acute episode of SOB prior to D/C planning Now feels better, mild generalized weakness No CP, fevers or chills EKG: NSR, non-specific changes, no acute changes Objective - Vital Signs/Intake and Output Vital Signs (last 24 hours): Temp Pulse Resp BP Pulse Ox 97.7 F 78 20 109/64 96 08/23/16 06:00 08/23/16 10:38 08/23/16 06:00 08/23/16 10:39 08/23/16 06:00 - Medications Medications: Current Medications Acetylcysteine (Acetylcysteine 20%) 3 ml INH BID [facility] Last Admin: 08/23/16 08:03 Dose: Not Given Albuterol/Ipratropium (Duoneb 3 Mg/0.5 Mg (3 Ml) Ud) 3 ml IH Q2H PRN PRN Reason: Shortness of Breath Last Admin: 08/22/16 23:47 Dose: 3 ml Arformoterol Tartrate (Brovana) 15 mcg IH [id number] [facility] Last Admin: 08/23/16 08:03 Dose: 15 mcg Aspirin (Aspirin Chewable) 81 mg PO DAILY [facility] Last Admin: 08/23/16 10:38 Dose: 81 mg Atorvastatin Calcium (Lipitor) 10 mg PO DIN [facility] Last Admin: 08/22/16 18:12 Dose: 10 mg Budesonide (Pulmicort Respules) 0.5 mg IH [id number] [facility] Last Admin: 08/23/16 08:04 Dose: 0.5 mg Carvedilol (Coreg) 25 mg PO BID [facility] Last Admin: 08/23/16 10:38 Dose: 25 mg Clopidogrel Bisulfate (Plavix) 75 mg PO DAILY [facility] Last Admin: 08/23/16 10:37 Dose: 75 mg Digoxin (Lanoxin) 0.25 mg PO 1400 [facility] Last Admin: 08/22/16 15:05 Dose: 0.25 mg Doxycycline Hyclate (Doryx) 100 mg PO Q12 [facility] PRN Reason: Protocol Last Admin: 08/23/16 10:38 Dose: Not Given Furosemide (Lasix) 40 mg IVP TID [facility] Last Admin: 08/23/16 10:39 Dose: 40 mg Glimepiride (Amaryl) 4 mg PO ACBD [facility] Last Admin: 08/23/16 08:27 Dose: 4 mg Guaifenesin/Dextromethorphan (Robitussin Dm) 5 ml PO Q4H PRN PRN Reason: Cough Last Admin: 08/23/16 10:40 Dose: 5 ml Insulin Human Lispro (Humalog High) 0 units SC [facility] PRN Reason: Protocol Last Admin: 08/23/16 08:27 Dose: 2 units Insulin Lispro Protam/Lispro Human (Humalog Mix 75/25) 10 units SC ACBD [facility] Last Admin: 08/23/16 08:26 Dose: 10 unit Lisinopril (Zestril) 20 mg PO DIN [facility] Last Admin: 08/22/16 18:12 Dose: 20 mg Pantoprazole Sodium (Protonix Ec Tab) 40 mg PO 0600 [facility] Last Admin: 08/23/16 05:03 Dose: 40 mg Prednisone (Prednisone Tab) 10 mg PO BID [facility] Last Admin: 08/23/16 10:40 Dose: Not Given Roflumilast (Daliresp) 500 mcg PO DAILY [facility] Last Admin: 08/23/16 10:38 Dose: 500 mcg Spironolactone (Aldactone) 25 mg PO Q24H [facility] Last Admin: 08/23/16 08:27 Dose: 25 mg - Labs Labs: 08/23/16 07:00 08/23/16 07:00 APTT 33.6 Seconds (23.7-30.8) H 08/19/16 09:30 - Constitutional Appears: Chronically Ill - Head Exam Head Exam: ATRAUMATIC, NORMAL INSPECTION, NORMOCEPHALIC - Eye Exam Eye Exam: EOMI, Normal appearance, PERRL - ENT Exam ENT Exam: Mucous Membranes Moist - Neck Exam Neck Exam: Full ROM - Respiratory Exam Respiratory Exam: Decreased Breath Sounds (R. LLB), Clear to Ausculation Bilateral - Cardiovascular Exam Cardiovascular Exam: REGULAR RHYTHM, +S1, +S2. absent: Gallop, +S4, Murmur - GI/Abdominal Exam GI & Abdominal Exam: Soft, Normal Bowel Sounds. absent: Tenderness - Extremities Exam Extremities Exam: absent: Calf Tenderness, Pedal Edema - Neurological Exam Neurological Exam: Alert, Awake, Oriented x3 - Psychiatric Exam Psychiatric exam: Normal Affect, Normal Mood - Skin Skin Exam: Normal Color, Warm Assessment and Plan - Assessment and Plan (Free Text) Assessment: 2D echo images viewed by me directly: Severe LV dysfunction with EF 20-35%, Elevated left atrial pressure Stage II diastolic dysfunction, no hemodynamically significant valve lesions A/P: 61 year old female with severe ischemic cardiomypathy she came to [facility] for severe cough and shortness of breath which in in the setting of elevated left atrial pressure is likely due to acute on chronic systolic CHF. She also has a long history of tobacco abuse so likely has a concomitant COPD exacerbation with possible RONNIE. * With continued IV diuresis she is more euvolemic her respiratory status has improved. * I agree with simultanous empiric treatment with steroids and antibiotics * Chest pain has resolved: * NSTEMI - minimially elevated troponin is likely to due ventricular strain in the setting of cardiomyopathy. I think its safe to d/c anticoagulation and resume DVT prophylaxsis. * 04/2012: peripheral angiogram 100% L. popliteal artery stenosis with reconstitution of distal popliteal and moderate B/L below knee vessel disease. ( Unable to cross occlusion at that time) * 12/22/15: Cardiac cath: TANG to mid and distal LAD, moderate disease RCA and its branches and LCX, calcified coronaries EF 40-45% Patient needs Rx for Ischemic Cardiomyopathy - will ULTIMATELY BE A CANDIDATE FOR AN aicd AFTER ADDITIONAL OUTPATIENT WORK-UP. ASA 81 Plavix 75 Coreg 25 BID Zestril 10 Lipitor 10 Aldactone 25 Lasix 40 BID/TID > Add: Ranexa 500 BID, Add Imdur 30-60 qd > At this point no need for inotropics if volume status can be maintained with diuretics > I agree with need for RONNIE eval and possible BIPAP at night > Suggest reduced digoxin dose to 0.125 and monitor levels as mild CKD Ultimately as an out patient she will need to start Entresto which is an ARNI ( Angitensin receptor and neprolysis inhibitor) to maximize CHF therapy. Encouarge physical therapy D/C planning * Monitor H/Has on DAPT and has concomitant anemia without any reported gross bleeding. F/U with me as out patient.
[2016-08-23] MEDS: Digoxin 250 mcg (0.25 mg) Tab PO SCH ×2 (15:24→16:25)
--- NOTE | 2016-08-23 23:22 | CP.PCM.PN ---
Subjective - Date & Time of Evaluation Date of Evaluation: 08/23/16 Time of Evaluation: 23:19 - Subjective Subjective: Patient was seen at bedside because she had complained of nausea earlier and was given zofran 4 mg IV . Has no complaints now.Feels better.Has no more nausea. 61 yearold white woman was admitted with sob, cough , phlegm, hypercapnic respiratory failure, leukocytosis, anemia. Has PMH of COPD, CAD, S/P Stenting, NSTEMI in Dec 27, CHF-EF 25-30%, PVD, former smoker. Objective - Vital Signs/Intake and Output Vital Signs (last 24 hours): Temp Pulse Resp BP Pulse Ox 98.7 F 65 18 107/67 96 08/23/16 17:40 08/23/16 20:15 08/23/16 17:40 08/23/16 20:17 08/23/16 06:00 Intake and Output: 08/23/16 08/24/16 18:59 06:59 Intake Total 360 Output Total 800 Balance -440 - Medications Medications: Current Medications Acetylcysteine (Acetylcysteine 20%) 3 ml INH BID FORMERLY [facility], [facility] Last Admin: 08/23/16 19:54 Dose: Not Given Albuterol/Ipratropium (Duoneb 3 Mg/0.5 Mg (3 Ml) Ud) 3 ml IH Q2H PRN PRN Reason: Shortness of Breath Last Admin: 08/22/16 23:47 Dose: 3 ml Arformoterol Tartrate (Brovana) 15 mcg IH [id number] [facility], [facility] Last Admin: 08/23/16 19:51 Dose: 15 mcg Aspirin (Aspirin Chewable) 81 mg PO DAILY [facility], [facility] Last Admin: 08/23/16 10:38 Dose: 81 mg Atorvastatin Calcium (Lipitor) 10 mg PO DIN [facility], [facility] Last Admin: 08/23/16 17:41 Dose: 10 mg Budesonide (Pulmicort Respules) 0.5 mg IH [id number] [facility], [facility] Last Admin: 08/23/16 19:51 Dose: 0.5 mg Carvedilol (Coreg) 25 mg PO BID [facility], [facility] Last Admin: 08/23/16 20:15 Dose: Not Given Clopidogrel Bisulfate (Plavix) 75 mg PO DAILY [facility] Last Admin: 08/23/16 10:37 Dose: 75 mg Digoxin (Lanoxin) 0.25 mg PO 1400 [facility] Last Admin: 08/23/16 16:25 Dose: 0.25 mg Furosemide (Lasix) 40 mg IVP TID QUIRINO Last Admin: 08/23/16 20:16 Dose: Not Given Glimepiride (Amaryl) 4 mg PO ACBD [facility] Last Admin: 08/23/16 17:37 Dose: 4 mg Guaifenesin/Dextromethorphan (Robitussin Dm) 5 ml PO Q4H PRN PRN Reason: Cough Last Admin: 08/23/16 10:40 Dose: 5 ml Insulin Human Lispro (Humalog High) 0 units SC ACHS QUIRINO PRN Reason: Protocol Last Admin: 08/23/16 22:10 Dose: Not Given Insulin Lispro Protam/Lispro Human (Humalog Mix 75/25) 10 units SC ACBD [facility] Last Admin: 08/23/16 17:41 Dose: 10 unit Lisinopril (Zestril) 20 mg PO DIN [facility] Last Admin: 08/23/16 20:17 Dose: Not Given Pantoprazole Sodium (Protonix Ec Tab) 40 mg PO 0600 [facility] Last Admin: 08/23/16 05:03 Dose: 40 mg Prednisone (Prednisone Tab) 10 mg PO BID [facility] Last Admin: 08/23/16 17:37 Dose: 10 mg Roflumilast (Daliresp) 500 mcg PO DAILY [facility] Last Admin: 08/23/16 10:38 Dose: 500 mcg Spironolactone (Aldactone) 25 mg PO Q24H [facility] Last Admin: 08/23/16 08:27 Dose: 25 mg - Labs Labs: 08/23/16 07:00 08/23/16 07:00 APTT 33.6 Seconds (23.7-30.8) H 08/19/16 09:30 Lab Studies 08/23/16 08/23/16 08/23/16 Range/Units 21:09 16:00 11:31 WBC (4.5-11.0) 10^3/ul RBC (3.5-6.1) 10^6/uL Hgb (12.0-16.0) gm/dL Hct (36.0-48.0) % MCV (80.0-105.0) fL MCH (25.0-35.0) pg MCHC (31.0-37.0) g/dl RDW (11.5-14.5) % Plt Count (120.0-450.0) 10^3/uL MPV (7.0-11.0) fl Gran % (50.0-68.0) % Lymph % (Auto) (22.0-35.0) % [place] % (Auto) (1.0-6.0) % Eos % (Auto) (1.5-5.0) % Baso % (Auto) (0.0-3.0) % Gran # (1.4-6.5) Lymph # (1.2-3.4) [place] # (0.1-0.6) Eos # (0.0-0.7) Baso # (0.0-2.0) K/mm3 Sodium (132-148) mmol/L Potassium (3.6-5.0) mmol/L Chloride (98-107) mmol/L Carbon Dioxide (21-33) mmol/L Anion Gap (10-20) BUN (7-21) mg/dL Creatinine (0.5-1.4) mg/dL Est GFR ( Amer) Est GFR (Non-Af Amer) POC Glucose (mg/dL) 113 H 131 H 348 H (65-110) mg/dL Random Glucose (70-110) mg/dL Calcium (8.4-10.5) mg/dL Total Bilirubin (0.2-1.3) mg/dL AST (15-39) U/L ALT (7-56) U/L Alkaline Phosphatase (38-133) U/L NT-Pro-B Natriuret Pep (0-450) pg/mL Total Protein (5.8-8.3) g/dL Albumin (3.0-4.8) g/dL Globulin gm/dL Albumin/Globulin Ratio (1.1-1.8) 08/23/16 08/23/16 08/23/16 Range/Units 07:37 07:00 07:00 WBC 17.3 H (4.5-11.0) 10^3/ul RBC 3.51 (3.5-6.1) 10^6/uL Hgb 9.4 L (12.0-16.0) gm/dL Hct 30.8 L (36.0-48.0) % MCV 87.7 (80.0-105.0) fL MCH 26.8 (25.0-35.0) pg MCHC 30.5 L (31.0-37.0) g/dl RDW 15.5 H (11.5-14.5) % Plt Count 418 (120.0-450.0) 10^3/uL MPV 10.1 (7.0-11.0) fl Gran % 65.1 (50.0-68.0) % Lymph % (Auto) 21.6 L (22.0-35.0) % [place] % (Auto) 6.7 H (1.0-6.0) % Eos % (Auto) 6.5 H (1.5-5.0) % Baso % (Auto) 0.1 (0.0-3.0) % Gran # 11.25 H (1.4-6.5) Lymph # 3.7 H (1.2-3.4) [place] # 1.2 H (0.1-0.6) Eos # 1.1 H (0.0-0.7) Baso # 0.01 (0.0-2.0) K/mm3 Sodium 136 (132-148) mmol/L Potassium 4.4 (3.6-5.0) mmol/L Chloride 95 L (98-107) mmol/L Carbon Dioxide 33 (21-33) mmol/L Anion Gap 12 (10-20) BUN 65 H (7-21) mg/dL Creatinine 1.5 H (0.5-1.4) mg/dL Est GFR ( Amer) 43 Est GFR (Non-Af Amer) 35 POC Glucose (mg/dL) 186 H (65-110) mg/dL Random Glucose 183 H (70-110) mg/dL Calcium 9.1 (8.4-10.5) mg/dL Total Bilirubin 0.3 (0.2-1.3) mg/dL AST 23 (15-39) U/L ALT 47 (7-56) U/L Alkaline Phosphatase 60 (38-133) U/L NT-Pro-B Natriuret Pep 05105 H (0-450) pg/mL Total Protein 6.1 (5.8-8.3) g/dL Albumin 3.3 (3.0-4.8) g/dL Globulin 2.8 gm/dL Albumin/Globulin Ratio 1.2 (1.1-1.8) - Constitutional Appears: Well, No Acute Distress - Head Exam Head Exam: ATRAUMATIC, NORMAL INSPECTION, NORMOCEPHALIC - Eye Exam Eye Exam: Normal appearance - ENT Exam ENT Exam: Normal External Ear Exam - Neck Exam Neck Exam: Normal Inspection - Respiratory Exam Respiratory Exam: NORMAL BREATHING PATTERN - Cardiovascular Exam Cardiovascular Exam: absent: JVD - GI/Abdominal Exam GI & Abdominal Exam: absent: Distended - Rectal Exam Rectal Exam: Deferred - Exam Additional comments: Deferred. - Extremities Exam Extremities Exam: Normal Inspection - Back Exam Back Exam: NORMAL INSPECTION - Neurological Exam Neurological Exam: Alert, Oriented x3 - Psychiatric Exam Psychiatric exam: Normal Affect, Normal Mood - Skin Skin Exam: Normal Color Assessment and Plan - Assessment and Plan (Free Text) Assessment: Nausea-NSTEMI. -Renal insufficiency. -On steroids. -CHF. -Gastritis? -Supratherapeutic digoxin/ CAD. COPD. PVC. ExSmoker. Plan: Zofran 4 mg IV stat. Discharge has been held.
[2016-08-24 01:45] VITALS: O2SAT 100
[2016-08-24] MEDS: guaiFENesin DM 100 mg-10 mg/5 ml UD PO PRN (05:27)
[2016-08-24] MEDS: Pantoprazole 40 mg EC Tab PO SCH (05:27)
[2016-08-24] MEDS: Insulin Lispro (HUMAlog) HIGH Coverage SC SCH ×3 (07:30→18:43)
[2016-08-24] MEDS: Budesonide 0.5 mg/2 ml Inhal Susp UD IH SCH (07:55)
[2016-08-24] MEDS: Arformoterol 15 mcg/2 ml Inh Sol IH SCH (07:55)
[2016-08-24] MEDS: Insulin Lispro (humaLOG) MIX 75/25(10 ml) SC SCH ×2 (08:53→18:50)
[2016-08-24] MEDS: Acetylcysteine 20% Inhal Soln (4ml) INH SCH (09:15)
--- NOTE | 2016-08-24 09:24 | PN ---
DATE: 08/23/2016 SUBJECTIVE: The patient is seen in bed, in no acute distress, nontoxic. The patient was seen earlier in 276, bed 1. PHYSICAL EXAMINATION VITAL SIGNS: Temperature is 98, blood pressure is 113/50, and respiratory rate of 18. HEENT: Unremarkable. NECK: Supple. LUNGS: Decreased breath sounds. HEART: Normal S1 and S2. ABDOMEN: Soft and nontender. LABORATORY DATA: Reveals the patient's white count is 17,300, hemoglobin 9, and platelets of 418. BUN of 65, creatinine of 1.5, and BNP is 10,000. Urinalysis is noted and microbiology reveals the blood cultures have no growth 5 days. Stool for C. diff antigen and toxin are negative and review of orders reveals the patient to be on p.o. prednisone and off of antibiotics. ASSESSMENT AND PLAN: She is a 61-year-old female with systemic inflammatory response syndrome, probably due to congestive heart failure exacerbation and chronic obstructive pulmonary disease, and bilateral pleural effusion, right lower lobe atelectasis with a history of right lower lobe community-acquired pneumonia in a patient with chronic obstructive lung disease, chronic congestive heart failure with coronary artery disease and a low ejection fraction of 35% to 40%, currently off of antibiotics and we will follow closely with you. Ramy Frey MD
[2016-08-24 12:05] VITALS: RESP 18
[2016-08-24] MEDS: Digoxin 250 mcg (0.25 mg) Tab PO SCH (15:23)
[2016-08-24 15:27] VITALS: PULSE 70
--- NOTE | 2016-08-24 20:25 | DS ---
HISTORY OF PRESENT ILLNESS: The patient is 61 years old, who was admitted with increasing shortness of breath. The patient had no fever; however, she was having cough and congestion. PAST MEDICAL HISTORY: She has significant past medical history of coronary artery disease, status post angioplasty for LAD. She was admitted for CHF, history of cardiomyopathy, heavy smoking for more than 40 years, history of non-insulin dependant diabetes, multiple episode of C. diff. ALLERGIES: SHE IS ALLERGIC TO CODEINE, ZITHROMAX, PROMETHAZINE, CIPRO, AND CIPRO EAR DROPS. The patient was given IV Lasix. She had blood and urine cultures done and they were all negative. Stool for C. diff was negative, so the patient was evaluated by director industrial nursing and her medications were adjusted. She was diuresed. She was given IV steroids, nebulizer treatment with significant improvement. PHYSICAL EXAMINATION: On examination today, GENERAL: She is awake and alert, communicative. VITAL SIGNS: She is afebrile. Pulse 72, respirations 18, blood pressure 113/52. LUNGS: Bilateral diffusely decreased breath sounds. HEART: S1, S2 audible. ABDOMEN: Soft, nontender. No rebound, no guarding. NEUROLOGIC: The patient is awake and alert. Communicative. Bilateral leg, no edema. LABORATORY EXAM: WBC 17.3, hemoglobin 9.4, hematocrit 30.8, platelets of 418,000. PT 33.6. Chemistry: Sodium 136, potassium 4.4, chloride 95, CO2 of 33, BUN 65, creatinine 1.5. Blood sugar of 348. Her BNP is 10,600. ASSESSMENT: 1. Ischemic cardiomyopathy. 2. Coronary artery disease, status post angioplasty for left anterior descending artery. 3. Chronic obstructive pulmonary disease. 4. Chronic renal insufficiency. 5. Bilateral pleural effusion. 6. Severe peripheral vascular disease. 7. Non-insulin dependent diabetes. 8. Hyperglycemia secondary to steroid. PLAN: Discussed with director industrial nursing, the patient at the bedside. The patient will be discharged home on Aldactone 25 mg daily, glimepiride 4 mg twice a day, her metformin is on hold because of her kidney function. She is on aspirin 81 mg daily. She will be started on Brovana, Coreg 25 mg b.i.d. She is on Daliresp. Discontinue doxycycline because patient is prone to have C. diff and there is no evidence of C. diff colitis at this point. She will be discharged on digoxin 0.125 mg daily. We will continue her on Lipitor, Lasix 40 mg twice a day, and Plavix 75 daily, Protonix 40 daily, and lisinopril 20 mg daily. She will follow up in office in a week to follow up on her blood work, and she will also follow up with director industrial nursing as an outpatient. She is advised to have low 2 gram sodium diet. She also has been provided with nebulizer machine and solution. Hubert Corona MD
--- NOTE | 2016-08-25 09:05 | PN ---
DATE: 08/24/2016 REFERRING PHYSICIAN: Dr. Corona. SUBJECTIVE: She is lying in the bed, is at bedside. Overnight and this morning events noted. Apparently, yesterday evening, she was too tired to take a walk and felt very weak. This morning, nursing staff was able to walk around the nursing station. Her pulse ox stayed 98% on room air with walking, whereas she got back into the room, she claimed that she had nausea and she vomited, presently just feels weak, but no shortness of breath, no cough, no more nausea, no abdominal pain, no dysuria, no leg pain or leg swelling. OBJECTIVE: GENERAL: No acute distress. VITAL SIGNS: Temp is 98, heart rate is 82, respiratory rate is 18, blood pressure is 123/49, pulse ox 100% on nasal cannula. HEENT: Moist mucous membranes, edentulous. Small oral cavity. Mallampati score is IV. NECK: Supple, no JVD. LUNGS: Good air flow. HEART: S1 and S2. ABDOMEN: Soft, nontender, no organomegaly. EXTREMITIES: There is no edema. NEUROLOGICAL: Awake, alert. Follows simple commands. MEDICATIONS: She is on 1. Mucomyst 20% inhaled twice a day. 2. Aldactone 25 mg daily. 3. Glimepiride 4 mg a.c. and b.i.d. 4. Aspirin 81 mg daily. 5. Brovana inhaled twice a day. 6. Coreg 25 mg twice a day. 7. Daliresp 500 mcg daily. 8. DuoNeb q. 6 hours. 9. Insulin coverage. 10. Digoxin 0.25 mg daily. 11. Lasix 40 mg 3 times a day. 12. Lipitor 10 mg daily. 13. Plavix 75 mg daily. 14. Prednisone 10 mg twice a day. 15. Protonix 40 mg daily. 16. Budesonide inhaled twice a day. 17. Robitussin 5 mL q. 4 hours p.r.n. 18. Zestril 20 mg daily. LABORATORY DATA: Shows blood sugar is 238. No other new labs are available. MICROBIOLOGY: Stool for C. diff has been negative. IMPRESSION AND PLAN: 1. Cardiomyopathy with progressively decreasing LV function. 2. Chronic obstructive lung disease may have a component of sleep apnea syndrome. 3. History of coronary artery disease, requiring stent. 4. Diabetes. 5. ADL dysfunction. I had a long discussion with the nursing staff, also spoke to the patient and the patient's in detail. Family was counseled about her cardiomyopathy and progression of disease. Pulmonary point of view, she is okay. She is still refusing to use CPAP/BiPAP, last night did not use it, expressed understanding the risk of not using CPAP, promised that she will try tonight if she is still in the hospital. End of the day, she needs cardiac workup, going to make sure there is no coronary artery disease. I will let transportation assistant to work through the logistic how to accomplish that, but if she is discharged, will need outpatient attending sleep study and PFT. I will decrease her prednisone to 10 mg daily. Presently, her weakness or shortness of breath is not related to lungs. It is mostly cardiac origin. We will follow with you. Kari Landers MD
--- NOTE | 2016-08-25 11:16 | PN ---
DATE: 08/23/2016 REFERRING PHYSICIAN: Dr. Duenas. SUBJECTIVE: She is sitting at side of bed having dinner, being discharged home. Overall, feels better. Decreased *------*shortness of breath. No chest pain. No nausea or vomiting. No diarrhea *------*exertion. OBJECTIVE: No acute distress. PHYSICAL EXAMINATION VITAL SIGNS: Temperature 98, heart rate is 72, respiratory rate is 20, blood pressure 113/52, pulse oximetry 96% on 2 L nasal cannulation. HEENT: Small oral cavity *------*. NECK: Supple. No JVD. LUNGS: Had a few crackles at bases. CARDIOPULMONARY: Heart S1 and S2. ABDOMEN: Soft, nontender. No hepatomegaly. EXTREMITIES: No edema. NEUROLOGIC: Awake alert and follow simple command. MEDICATIONS: She is on; 1. Mucomyst inhaler twice a day. 2. Aldactone 25 mg daily. 3. Glimepiride 4 mg before meals twice a day. 4. Aspirin 81 mg daily. 5. Brovana inhaler twice a day. 6. Coreg 25 mg *------*. 7. *------*daily. 8. DuoNeb q.2 hour p.r.n. 9. Insulin coverage. 10. Digoxin 0.25 mg daily. 11. Lasix 40 mg three times a day. 12. Lipitor 10 mg daily. 13. Plavix 75 mg daily. 14. Prednisone 10 mg twice a day. 15. Protonix 40 mg daily. 16. Pulmicort inhaler twice a day. 17. Robitussin 5 mg q.4 hours p.r.n. 18. Zestril 20 mg daily. LABORATORY DATA: Shows hemoglobin 9.4, hematocrit 30.8, WBC 17.3 and platelet count is 418. Sodium 136, potassium 4.4, chloride 95, bicarbonate 33, BUN 65, creatinine 1.5, glucose 183, calcium 9.1. AST 23, ALT 47, alkaline phosphatase is 60, proBNP 10,600 and albumin is 3.3. IMPRESSION AND PLAN: Cardiomyopathy with worsening of left ventricle function from 40% to 20% to 30% present left ventricle ejection fraction. Other issue is chronic obstructive lung disease, diabetes, peripheral vascular disease. She may have sleep apnea syndrome. Cardiology note reviewed. I agree with adding Ranexa. She may benefit from Entresto. She has been refusing p.o. prednisone but using nebulizer and using inhaled bronchodilators. Spoke to nursing staff and requested to do six minutes walk and follow her pulse oximetry. If pulse oximetry drop below 88, she will go home with 2 L nasal cannula. Outpatient need attended a sleep study as soon as possible. Spoke with the patient and nursing staff to send her to sleep center coming week. Also will do pulmonary function test as an outpatient. Thank you and will follow with you. Kari Landers MD
[2016-08-25 11:58] VITALS: BP 140/78; PULSE 75; TEMP 97.6
--- NOTE | 2016-08-27 09:06 | DS ---
HISTORY OF PRESENT ILLNESS: The patient is 61 years old who is admitted with increased shortness of breath. She was found to have acute renal failure, non-ST elevation SD, had echocardiogram done with significantly reduced LV function between 25% to 30%. She also had a community-acquired pneumonia and bronchospasm, so patient with given IV steroid and antibiotics. She was also diuresed and was evaluated by manager shop and medications were adjusted. Still feels weak, dizzy. She was ready to be discharged yesterday but she stated in the evening, *------*. She was unable to walk. She has leg weakness because of her severe peripheral vascular disease, cannot walk few steps without having pain and shortness of breath, so her discharge yesterday was held to reevaluate her and to assess her for home oxygen. PHYSICAL EXAMINATION: GENERAL: She feels okay while resting. VITAL SIGNS: She is afebrile, pulse 65, respiration 18, blood pressure 120/55. LUNGS: Bilateral good air flow. No rhonchi of crackle. HEART: S1, S2 audible. ABDOMEN: Soft, nontender, no rebound, no guarding. NEUROLOGIC: The patient is awake and alert, communicative, moves all extremities. LABORATORY EXAM: Her blood sugar is 238. ASSESSMENT AND PLAN: 1. Ischemic cardiomyopathy. 2. Coronary artery disease, status post angioplasty of left anterior descending. 3. Left ventricular dysfunction. 4. Terminal chronic obstructive pulmonary disease, secondary to heavy smoking in the past. 5. Non-insulin dependent diabetes. 6. Severe peripheral vascular disease. 7. Coronary artery disease. PLAN: The patient will have evaluation done without oxygen while resting and on ambulation if she meets the criteria. Arrangement will be made for home oxygen. Otherwise, she has been given prescription of nebulizer treatment. She will be discharged home on Plavix, aspirin, Coreg 25 twice a day, Zestril 10 mg daily, Lipitor 10 mg daily, Aldactone 25 mg daily and Lasix 40 mg twice a day. She will be given Ranexa 500 mg twice a day. She will be evaluated for the obstructive sleep apnea, although she denied that she snores. Her never has witnessed her to be having apneic attack. We will continue her on digoxin. If the patient remains stable, she will be discharged home. Hubert Corona MD [facility] # [id number]
== END 2016-08-24 21:00 | disposition home or self-care (01) | DRG 280 ==
LOC: ED 03:13 → ERH 05:31 → CCU 06:34 → 5RSO 11:09 → 2RSO 23:26
PROVIDERS: ADMIT Internal Medicine; ATTEND Internal Medicine
DX: I21.4 Non-ST elevation (NSTEMI) myocardial infarction (principal); J96.02 Acute respiratory failure with hypercapnia; I50.23 Acute on chronic systolic (congestive) heart failure; J18.9 Pneumonia, unspecified organism; N17.9 Acute kidney failure, unspecified; E87.2 Acidosis; R65.10 Systemic inflammatory response syndrome (SIRS) of non-infectious origin without acute organ dysfunction; I13.0 Hypertensive heart and chronic kidney disease with heart failure and stage 1 through stage 4 chronic kidney disease, or unspecified chronic kidney disease; J44.0 Chronic obstructive pulmonary disease with (acute) lower respiratory infection; A04.7 Enterocolitis due to Clostridium difficile; J44.1 Chronic obstructive pulmonary disease with (acute) exacerbation; J98.11 Atelectasis; E11.22 Type 2 diabetes mellitus with diabetic chronic kidney disease; E11.51 Type 2 diabetes mellitus with diabetic peripheral angiopathy without gangrene; D64.9 Anemia, unspecified; E11.65 Type 2 diabetes mellitus with hyperglycemia; G47.33 Obstructive sleep apnea (adult) (pediatric); I25.10 Atherosclerotic heart disease of native coronary artery without angina pectoris; I25.2 Old myocardial infarction; I25.5 Ischemic cardiomyopathy; I49.3 Ventricular premature depolarization; I70.202 Unspecified atherosclerosis of native arteries of extremities, left leg; J98.01 Acute bronchospasm; M62.89 Other specified disorders of muscle; N18.9 Chronic kidney disease, unspecified; T38.0X5A Adverse effect of glucocorticoids and synthetic analogues, initial encounter; Z79.4 Long term (current) use of insulin; Z79.84 Long term (current) use of oral hypoglycemic drugs; Z79.899 Other long term (current) drug therapy; Z80.8 Family history of malignant neoplasm of other organs or systems; Z83.3 Family history of diabetes mellitus; Z87.01 Personal history of pneumonia (recurrent); Z87.891 Personal history of nicotine dependence; Z95.5 Presence of coronary angioplasty implant and graft; Z88.1 Allergy status to other antibiotic agents; Z88.5 Allergy status to narcotic agent; Z88.8 Allergy status to other drugs, medicaments and biological substances; Z87.19 Personal history of other diseases of the digestive system

== ENCOUNTER 2017-01-15 02:58 | Inpatient (IN) | payer BC ==
[2017-01-15 02:58] VITALS: PULSE 70
--- NOTE | 2017-01-15 03:04 | ED PDOC ---
Arrival/HPI - General Time Seen by Provider: 01/15/17 03:00 Historian: Patient, Spouse, EMS - History of Present Illness Narrative History of Present Illness (Text): 01/15/17 03:03 Kenny Messina is a 61 year old female, whose past medical history includes COPD, CAD with stents, NSTEMI, CHF, PAD with claudication, and neuropathy, who presents to the Emergency department brought in by EMS accompanied by complaining of chest pain. As per , patient has been experiencing progressively worsening mid-sternal chest pain and shortness of breath for the past 6 hours. notes patient was seen in the Emergency department for similar symptoms in 08/2016 and was admitted to the hospital for further evaluation. Patient denies any fever, chills, nausea, vomiting, back pain, neck pain, headache, dizziness, or any other complaints. PMD: Dr. Vegas Slitter Scorer: Dr. Eliel Reynolds Time/Duration: 4-6 hours, Other (tonight) Symptom Onset: Gradual Symptom Course: Worsening Activities at Onset: Light Context: Home Past Medical History - Provider Review Nursing Documentation Reviewed: Yes - Infectious Disease Hx of Infectious Diseases: None - Cardiac Hx Cardiac Disorders: Yes Hx Angina: No Hx Cardiac Arrhythmia: No Hx Circulatory Problems: Yes Hx Congestive Heart Failure: No Hx Heart Murmur: No Hx Heart Transplant: No Hx Hypertension: Yes Hx Internal Defibrillator: No Hx Mitral Valve Prolapse: No Hx Pacemaker: No Hx Peripheral Edema: No Hx Peripheral Vascular Disease: Yes - Pulmonary Hx Respiratory Disorders: Yes Hx Asthma: No Hx Bronchitis: No Hx Chronic Obstructive Pulmonary Disease (COPD): Yes Hx Emphysema: No Hx Pneumonia: Yes Hx Respiratory Aspiration: No Hx Respiratory Tract Infection: No Hx Sleep Apnea: No Hx Tuberculosis: No - Neurological Hx Neurological Disorder: No Hx Alzheimer's Disease: No HX Cerebrovascular Accident: No Hx Dementia: No Hx Dizziness: No Hx Meningitis: No Hx Migraine: No Hx Parkinson's Disease: No Hx Seizures: No Hx Transient Ischemic Attacks (TIA): No - HEENT Hx HEENT Disorder: No Hx Blind: No Hx Cataracts: No Hx Deafness: No Hx Difficulty Chewing: No Hx Epistaxis: No Hx Glaucoma: No Hx Macular Degeneration: No - Renal Hx Renal Disorder: No Hx Dialysis: No Hx Kidney Stones: No Hx Neurogenic Bladder: No Hx Pyelonephritis: No Hx Renal Cancer: No Hx Renal Failure: No - Endocrine/Metabolic Hx Endocrine Disorders: Yes Hx Adrenal Cancer: No Hx Diabetes Insipidus: No Hx Diabetes Mellitus Type 1: No Hx Diabetes Mellitus Type 2: Yes Hx Hyperthyroidism: No Hx Hypothyroidism: No Hx Systemic Lupus Erythematosus: No - Hematological/Oncological Hx Blood Disorders: No Hx AIDS: No Hx Anemia: No Hx Cancer: No Hx Chemotherapy: No Hx Cirrhosis: No Hx Hemophilia: No Hx Hepatitis A: No Hx Hepatitis B: No Hx Hepatitis C: No Hx Metastasis: No Hx Shingles: No Hx Sickle Cell Disease: No Hx Unexplained Bleeding: No - Integumentary Hx Dermatological Disorder: No Hx Basal Cell Carcinoma: No Hx Eczema: No Hx Melanoma: No Hx Psoriasis: No Hx Squamous Cell Carcinoma: No - Musculoskeletal/Rheumatological Hx Falls: No - Gastrointestinal Hx Gastrointestinal Disorders: No Hx Colostomy: No Hx Crohn's Disease: No Hx Diverticulitis: No Hx Gall Bladder Disease: No Hx Gastroesophageal Reflux: No Hx Ileostomy: No Hx Liver Failure: No Hx Pancreatitis: No HX Swallowing Problems: No - Genitourinary/Gynecological Hx Genitourinary Disorders: No Hx Hematuria: No Hx Incontinence: No Hx Sexually Transmitted Diseases: No Hx Urinary Tract Infection: No - Psychiatric Hx Psychophysiologic Disorder: No Hx Anxiety: No Hx Bipolar Disorder: No Hx Depression: No Hx Emotional Abuse: No Hx Hallucinations: No Hx Panic Disorder: No Hx Post Traumatic Stress Disorder: No Hx Psychosis: No Hx Physical Abuse: No Hx Schizophrenia: No Hx Sexual Abuse: No Hx Substance Use: No - Surgical History Hx Amputation: No Hx Appendectomy: No Hx Cardiac Catheterization: Yes Hx Cholecystectomy: No Hx Coronary Stent: Yes Hx Gastric Bypass Surgery: No Hx Hysterectomy: No Hx Joint Replacement: No Hx Kidney Transplant: No Hx Liver Transplant: No Hx Mastectomy: No Hx Musculoskeletal Surgery: No Hx Open Heart Surgery: No Hx Orthopedic Surgery: No Hx Splenectomy: No Hx Valve Replacement: No - Anesthesia Hx Anesthesia Reactions: No Hx Malignant Hyperthermia: No - Suicidal Assessment Feels Threatened In Home Enviroment: No Family/Social History - Physician Review Nursing Documentation Reviewed: Yes Family/Social History: Unknown Family HX Smoking Status: Former Smoker Hx Alcohol Use: No Hx Substance Use: No Allergies/Home Meds Allergies/Adverse Reactions: Allergies codeine Allergy (Verified 08/17/16 03:27) DIZZINESS erythromycin base Allergy (Verified 08/17/16 03:27) ANAPHYLAXIS promethazine Allergy (Verified 08/17/16 03:27) HEADACHE ciprofloxacin [From Cipro] Adverse Reaction (Verified 08/17/16 03:27) DIZZINESS ciprofloxacin HCl [From Cipro] Adverse Reaction (Verified 08/17/16 03:27) DIZZINESS Home Medications: Home Meds Medication Instructions Recorded Confirmed Albuterol 0.083% [Albuterol 3 ml IH QID 01/15/17 01/15/17 Sulfate 3 Ml] Aspirin [Adult Low Dose Aspirin EC] 81 mg PO DAILY 01/15/17 01/15/17 Carvedilol [Coreg] 25 mg PO BID 01/15/17 01/15/17 Clopidogrel [Plavix] 75 mg PO DAILY 01/15/17 01/15/17 Furosemide [Lasix] 20 mg PO DAILY 01/15/17 01/15/17 Glimepiride [Amaryl] 1 mg PO BID 01/15/17 01/15/17 Isosorbide Mononitrate [Isosorbide 30 mg PO DAILY 01/15/17 01/15/17 Mononitrate ER] Losartan [Cozaar] 24 mg PO DAILY 01/15/17 01/15/17 Ranolazine [Ranexa] 500 mg PO BID 01/15/17 01/15/17 Roflumilast [Daliresp] 500 mcg PO HS 01/15/17 01/15/17 Rosuvastatin Calcium [Crestor] 20 mg PO DAILY 01/15/17 01/15/17 Review of Systems - Physician Review All systems were reviewed & negative as marked: Yes - Review of Systems Constitutional: Normal. absent: Fevers Eyes: Normal ENT: Normal Respiratory: SOB Cardiovascular: Chest Pain Gastrointestinal: Normal. absent: Abdominal Pain, Diarrhea, Nausea, Vomiting Genitourinary Female: Normal. absent: Dysuria, Frequency, Hematuria, Urine Output Changes Musculoskeletal: Normal. absent: Back Pain, Neck Pain Skin: Normal. absent: Rash Neurological: Normal. absent: Headache, Dizziness Endocrine: Normal Hemo/Lymphatic: Normal Psychiatric: Normal Physical Exam Vital Signs Reviewed: Yes Vital Signs Temp Pulse Resp BP Pulse Ox 01/15/17 05:19 93 H 14 107/61 99 01/15/17 04:18 109 H 14 188/92 H 93 L 01/15/17 04:00 115 H 14 161/80 H 95 01/15/17 03:52 114 H 24 186/102 H 87 L 01/15/17 03:46 113 H 24 186/102 H 86 L 01/15/17 03:38 109 H 192/96 H 01/15/17 03:05 97.8 F 96 H 24 181/76 H 100 Temperature: Afebrile Blood Pressure: Hypertensive Pulse: Regular Respiratory Rate: Normal Appearance: Positive for: Well-Appearing, Non-Toxic Pain Distress: None Mental Status: Positive for: Alert and Oriented X 3 - Systems Exam Head: Present: Atraumatic, Normocephalic Pupils: Present: PERRL Extroacular Muscles: Present: EOMI Conjunctiva: Present: Normal Mouth: Present: Moist Mucous Membranes Neck: Present: Normal Range of Motion Respiratory/Chest: Present: Decreased Breath Sounds, Rales (Rales at bilateral bases). No: Respiratory Distress, Accessory Muscle Use Cardiovascular: Present: Regular Rate and Rhythm, Normal S1, S2. No: Murmurs Abdomen: Present: Normal Bowel Sounds. No: Tenderness, Distention, Peritoneal Signs Upper Extremity: Present: Normal Inspection. No: Cyanosis, Edema Lower Extremity: Present: Normal Inspection. No: Edema Neurological: Present: GCS=15, CN II-XII Intact, Speech Normal Skin: Present: Warm, Dry, Normal Color. 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 Differential Diagnosis included but are not limited to: COPD exacerbation vs. CHF exacerbation vs. ACS vs. pneumonia Plan: -- EKG -- Chest X-ray -- Labs, cardiac enzymes, BNP -- Urinalysis -- Duoneb -- Solu-medrol -- Aspirin -- Nitroglycerin -- Morphine -- Reassess and disposition Prior Visits: Notes and results from previous visits were reviewed. On 08/17/2016, pt was seen in the Emergency department for acute onset of shortness of breath. Pt was admitted to the ICU for further evaluation. Progress Notes: Reviewed EKG, NSR at [address] Inferolateral non-specific ST/T wave changes. 01/15/17 03:42 Reviewed radiology, Chest X-ray shows CHF. Lasix ordered. 01/15/17 03:52 Pt placed on BiPAP 01/15/17 05:20 On re-evaluation, pt reports she feels better after BiPAP and Lasix. PMD paged. 01/15/17 05:[address] Vegas, who is aware and agrees with plan. Accepts pt in to his service. Pt will be admitted to Telemetry for CHF, COPD, and chest pain under Dr. White. vice president of business development communications department head notified. Requests Dr. Reynolds and Dr. Sevilla on consult. - Lab Interpretations Lab Results: 01/15/17 03:26 01/15/17 03:26 Lab Results 01/15/17 05:01: pCO2 50 H, pO2 82.0, HCO3 24.0, ABG pH 7.29 L, ABG Total CO2 25.5, ABG O2 Saturation 98.0, ABG O2 Content 12.8 L, ABG Base Excess -2.7 L, ABG Hemoglobin 9.5 L, ABG Carboxyhemoglobin 2.1 H, POC ABG HHb (Measured) 1.9, ABG Methemoglobin 0.8, ABG O2 Capacity 13.1 L, Hgb O2 Saturation 95.2, FiO2 50.0 01/15/17 03:26: Sodium 140, Potassium 4.6, Chloride 101, Carbon Dioxide 26, Anion Gap 18, BUN 37 H, Creatinine 1.7 H, Est GFR ( Amer) 37, Est GFR ( Non-Af Amer) 30, Random Glucose 155 H, Calcium 9.7, Total Bilirubin 0.5, AST 19 , ALT 25, Alkaline Phosphatase 102, Lactate Dehydrogenase 422, Total Creatine Kinase 37, Troponin I 0.03 D, NT-Pro-B Natriuret Pep 7300 H, Total Protein 7.8 , Albumin 4.6, Globulin 3.3, Albumin/Globulin Ratio 1.4 01/15/17 03:26: PT 10.5, INR 0.96, APTT 32.2 01/15/17 03:26: WBC 11.4 H D, RBC 3.81, Hgb 10.3 L, Hct 32.5 L, MCV 85.3, MCH 27.0, MCHC 31.7, RDW 14.7 H, Plt Count 355, MPV 9.6, Gran % 65.2, Lymph % (Auto ) 24.2, [place] % (Auto) 5.6, Eos % (Auto) 4.6, Baso % (Auto) 0.4, Gran # 7.42 H, Lymph # 2.8, [place] # 0.6, Eos # 0.5, Baso # 0.04 I have reviewed the lab results: Yes - RAD Interpretation Radiology Orders: 01/15/17 03:07 CHEST PORTABLE [RAD] Stat Primary Care Provider: ED Physician - EKG Interpretation Interpreted by ED Physician: Yes Type: 12 lead EKG - Medication Orders Current Medication Orders: Nitroglycerin/Dextrose (Nitroglycerin 50 Mg/250 Ml D5w) 50 mg in 250 mls @ 3 mls/hr IV .Q24H PRN; Protocol; 10 MCG/MIN PRN Reason: Titrate per protocol Last Admin: 01/15/17 03:38 Dose: 3 mls/hr eMAR Start Stop Document 01/15/17 03:38 YP (Rec: 01/15/17 03:38 YP [facility] [place][id number]) Intravenous Solution Start Date 01/15/17 Start Time 03:38 APR Pulse and Blood Pressure Document 01/15/17 03:38 YP (Rec: 01/15/17 03:38 YP [facility] [id number] Pulse Pulse Rate (60-90 beats/min) 109 Blood Pressure Blood Pressure (100/60-150/90 mm Hg) 192/96 Discontinued Medications Albuterol/Ipratropium (Duoneb 3 Mg/0.5 Mg (3 Ml) Ud) 3 ml IH ONCE STA Stop: 01/15/17 03:08 Last Admin: 01/15/17 03:30 Dose: 3 ml Aspirin (Aspirin) 325 mg PO ONCE STA Stop: 01/15/17 03:11 Last Admin: 01/15/17 03:30 Dose: 325 mg Furosemide (Lasix) 80 mg IVP ONCE ONE Stop: 01/15/17 03:44 Last Admin: 01/15/17 03:46 Dose: 80 mg MAR Blood Pressure Document 01/15/17 03:46 OCS (Rec: 01/15/17 04:07 OCS [id number]) Blood Pressure Blood Pressure (100/60-150/90 mm Hg) 186/102 IVP Administration Document 01/15/17 03:46 OCS (Rec: 01/15/17 04:07 OCS [id number]) Charges for Administration # of IVP Administrations 1 Methylprednisolone (Solu-Medrol) 125 mg IVP ONCE ONE Stop: 01/15/17 03:12 Last Admin: 01/15/17 03:32 Dose: 125 mg IVP Administration Document 01/15/17 03:32 YP (Rec: 01/15/17 03:38 YP [facility] [id number]) Charges for Administration # of IVP Administrations 1 Morphine Sulfate (Morphine) 2 mg IVP STAT STA Stop: 01/15/17 03:12 Last Admin: 01/15/17 03:33 Dose: 2 mg IVP Administration Document 01/15/17 03:33 YP (Rec: 01/15/17 03:38 YP [facility] [id number]) Charges for Administration # of IVP Administrations 1 - Scribe Statement The provider has reviewed the documentation as recorded by the Andrew Bowles Provider Scribe Attestation: All medical record entries made by the Scribe were at my direction and personally dictated by me. I have reviewed the chart and agree that the record accurately reflects my personal performance of the history, physical exam, medical decision making, and the department course for this patient. I have also personally directed, reviewed, and agree with the discharge instructions and disposition. Disposition/Present on Arrival - Present on Arrival Any Indicators Present on Arrival: No History of DVT/PE: No History of Uncontrolled Diabetes: Yes Urinary Catheter: No History of Decub. Ulcer: No History Surgical Site Infection Following: None - Disposition Have Diagnosis and Disposition been Completed?: Yes Diagnosis: Congestive heart failure, Chest pain, COPD exacerbation Disposition: HOSPITALIZED Disposition Time: 05:34 Patient Plan: Admission Patient Problems: Current Active Problems Problem Status Onset COPD exacerbation Acute Chest pain Acute Congestive heart failure Acute Condition: STABLE Discharge Instructions (ExitCare): Heart Failure (ED), Chest Pain (ED)
[2017-01-15] MEDS ORDERED: Albuterol-Ipratrop 3 mg / 0.5 (3 ml) UD IH STA (03:07)
[2017-01-15] MEDS ORDERED: Nitroglycerin 50mg in D5W 50 MG/250 ML BOTTLE IV PRN (03:10)
[2017-01-15] MEDS ORDERED: Morphine 5 MG/ML SYRINGE IVP STA (03:11)
[2017-01-15 03:58] LABS: BASO # 0.04 K/mm3 (0.0-2.0); BASO % 0.4 % (0.0-3.0); EOS # 0.5 (0.0-0.7); EOS % 4.6 % (1.5-5.0); GRAN # 7.42 (1.4-6.5); GRAN % 65.2 % (50.0-68.0); HEMATOCRIT 32.5 % (36.0-48.0); LYMPH # 2.8 (1.2-3.4); LYMPH % 24.2 % (22.0-35.0); MEAN CELL VOLUME 85.3 fl (80.0-105.0); MEAN CORPUSCULAR HGB CONC 31.7 g/dl (31.0-37.0); MEAN PLATELET VOLUME 9.6 fl (7.0-11.0); MONO # 0.6 (0.1-0.6); MONO % 5.6 % (1.0-6.0); RED CELL DISTRIBUTION WIDTH 14.7 % (11.5-14.5); WHITE BLOOD COUNT 11.4 10^3/ul (4.5-11.0)
[2017-01-15 04:01] LABS: INR 0.96 (0.93-1.08); PARTIAL THROMBOPLASTIN TIME 32.2 Seconds (25.1-36.5)
[2017-01-15 04:04] LABS: ALB/GLOB RATIO 1.4 (1.1-1.8); BILIRUBIN,TOTAL 0.5 mg/dL (0.2-1.3); CALCIUM 9.7 mg/dL (8.4-10.5); POTASSIUM 4.6 mmol/L (3.6-5.0); TOTAL PROTEIN 7.8 g/dL (5.8-8.3)
[2017-01-15 04:15] LABS: TROPONIN I 0.03 ng/mL
[2017-01-15 05:03] LABS: ARTERIAL BLOOD GAS O2 CAPACITY 13.1 mL/dl (16-24); ARTERIAL BLOOD GAS O2 CONTENT 12.8 ML/dl (15-23); ARTERIAL BLOOD GAS PH 7.29 (7.35-7.45); ARTERIAL BLOOD HGB O2 SAT 95.2 % (95.0-98.0); CARBOXYHEMOGLOBIN 2.1 % (0.5-1.5); HHB 1.9 % (0-5); METHEMOGLOBIN 0.8 % (0.0-3.0)
[2017-01-15] MEDS ORDERED: Albuterol-Ipratrop 3 mg / 0.5 (3 ml) UD IH PRN (06:19)
--- NOTE | 2017-01-15 06:21 | CP.PCM.HP ---
History of Present Illness - History of Present Illness History of Present Illness: CC: Chest Pain Subjective: HPI: Patient is a 61 year old female, whose past medical history includes COPD, CAD with multiple stents, NSTEMI, CHF, PAD with claudication, and neuropathy, who presents to the Emergency department via EMS for evaluation and treatment of chest pain. The pain is retrosternal in nature and radiates to down the left arm. It was described as being sharp in nature. Patient also admits to associated SOB which developed when in the ED. States that the chest pain has resolved since onset. Denies recent travel and sick contacts. Patient denies intractable headache, fever, chills, dizziness, blurry vision, ringing in the ears, abdominal pain, nausea, vomiting, diarrhea, constipation, and urinary symptoms. ROS: 12 point review of systems negative except as indicated in HPI PMHx: COPD, CAD with multiple stents, NSTEMI, CHF, PAD with claudication, and neuropathy PSHx: denies Family Hx: mother- diabetes father- brain cancer Social Hx: denies ETOH use, former tobacco user 2 ppd for 40 years quit last year, denies illicit drug use Medications: Please see medication reconciliation Physical Examination: - Constitutional Appears: Non-toxic, No Acute Distress - Head Exam Head Exam: atraumatic, normocephalic - Eye Exam Eye Exam: Normal appearance, PERRL. absent: Scleral icterus - ENT Exam ENT Exam: Mucous Membranes Moist - Neck Exam Neck exam: Normal Inspection - Respiratory Exam Respiratory Exam: Normal Breathing Pattern, bibasilar crackles - Cardiovascular Exam Cardiovascular Exam: +S1, +S2. absent: Gallop, JVD - GI/Abdominal Exam GI & Abdominal Exam: Normal Bowel Sounds, absent: Distended, Guarding, Pulsatile Mass, Rebound, Rigid - Extremities Exam Extremities exam: no edema' Negative for: calf tenderness - Neurological Exam Neurological exam: Patient is awake, alert, responds to verbal stimuli, answers questions appropriately, follows commands, and moves extremities past midline - Psychiatric Exam Psychiatric exam: Normal Affect, Normal Mood - Skin Skin Exam: warm and dry Assessment and Plan: Patient is a 61 year old female, whose past medical history includes COPD, CAD with multiple stents, NSTEMI, CHF, PAD with claudication, and neuropathy, who was admitted for evaluation and treatment of chest pain. Chest Pain - rule out ACS - EKG reviewed and appreciated - NSR HR 97 Qtc 487 - cardiac enzymes q8h x 3, first troponins negative - lipid profile and A1C pending - continue ranexa - cardiology consulted- appreciate recommendations Hypertensive Emegerncy - SBP 180s/100s - patient placed on nitro drip SIRS Criteria Met - HR > 90 and RR > 20 - not sepsis- no source - blood cultures x 2, UA, procalcitonin pending Acute on Chronic COPD Exacerbation - hypoxic on initial admission - duobnebs q4 scheduled - solumedrol 40mg IV q12 - daliresp - bipap 12, 4 adjust FiO2 to keep SaO2 between 92-95% - pulmonology consult appreciate recommendations - antibiotiotics- doxcycline, no azithromycin due to QTc prolongation - abg reviewed and appreciated- acidotic with CO2 retention, continue patient on bipap, repeat abg in AM - repeat CXR - consider lasix po pending patients clinical course Acute on Chronic CHF Exacerbation - HR and BP reviewed, trended, and appreciated - strict i and o - daily weight - lasix 40 Iv daily- in light of PAULINO consider reducing dose depending on patient 's clinical course - previous ECHO reviewed and appreciated- EF 20-25% - consider repeating CXR/ attaining chest CT pending patient clinical course - cardiology consulted- appreciate recommendations PAULINO - creatinine and Bun reviewed, trended, and appreciated - avoid nephrotoxins - nephrology consult- appreciate recommendations Anemia - Hgb reviewed, trended, and appreciated - monitor closely via CBC - consider iron, tibc, ferritin, peripheral smear pending patients clinical course Hx of CAD - c/w aspirin, plavix, coreg - c/w statin Hx of Hyperlipidemia - c/w statin Hx of Diabetes - hold home diabetic medications - fingersticks ACHS - insulin sliding scale- lispro medium - resume diet as carb consistent Prophylaxis - DVT ppx- subq heparin as per griselda score - GI ppx- famotidine Patient case discussed with and plan approved by attending physician. 01/15/17 05:59 Present on Admission - Present on Admission Any Indicators Present on Admission: No Past Patient History - Infectious Disease Hx of Infectious Diseases: None - Past Social History Smoking Status: Former Smoker - CARDIAC Hx Cardiac Disorders: Yes Hx Angina: No Hx Cardia Arrhythmia: No Hx Circulatory Problems: Yes Hx Congestive Heart Failure: No Hx Heart Murmur: No Hx Heart Transplant: No Hx Hypertension: Yes Hx Internal Defibrillator: No Hx Mitral Valve Prolapse: No Hx Pacemaker: No Hx Peripheral Edema: No Hx Peripheral Vascular Disease: Yes - PULMONARY Hx Respiratory Disorders: Yes Hx Asthma: No Hx Bronchitis: No Hx Chronic Obstructive Pulmonary Disease (COPD): Yes Hx Emphysema: No Hx Pneumonia: Yes Hx Respiratory Aspiration: No Hx Respiratory Tract Infection: No Hx Sleep Apnea: No Hx Tuberculosis: No - NEUROLOGICAL Hx Neurological Disorder: No Hx Alzheimer's Disease: No HX Cerebrovascular Accident: No Hx Dementia: No Hx Dizziness: No Hx Meningitis: No Hx Migraine: No Hx Parkinson's Disease: No Hx Seizures: No Hx Transient Ischemic Attacks (TIA): No - HEENT Hx HEENT Problems: No Hx Blind: No Hx Cataracts: No Hx Deafness: No Hx Difficulty Chewing: No Hx Epistaxis: No Hx Glaucoma: No Hx Macular Degeneration: No - RENAL Hx Chronic Kidney Disease: No Hx Dialysis: No Hx Kidney Stones: No Hx Neurogenic Bladder: No Hx Pyelonephritis: No Hx Renal (Kidney) Cancer: No Hx Renal Failure: No - ENDOCRINE/METABOLIC Hx Endocrine Disorders: Yes Hx Adrenal Cancer: No Hx Diabetes Insipidus: No Hx Diabetes Mellitus Type 1: No Hx Diabetes Mellitus Type 2: Yes Hx Hyperthyroidism: No Hx Hypothyroidism: No Hx Systemic Lupus Erythematosus: No - HEMATOLOGICAL/ONCOLOGICAL Hx Blood Disorders: No Hx AIDS: No Hx Anemia: No Hx Cancer: No Hx Chemotherapy: No Hx Cirrhosis: No Hx Hemophilia: No Hx Hepatitis A: No Hx Hepatitis B: No Hx Hepatitis C: No Hx Metastesis: No Hx Shingles: No Hx Sickle Cell Disease: No Hx Unexplained Bleeding: No - INTEGUMENTARY Hx Dermatological Problems: No Hx Basil Cell: No Hx Eczema: No Hx Melanoma: No Hx Psoriasis: No Hx Squamous Cell: No - MUSCULOSKELETAL/RHEUMATOLOGICAL Hx Falls: No - GASTROINTESTINAL Hx Gastrointestinal Disorders: No Hx Colostomy: No Hx Crohn's Disease: No Hx Diverticulitis: No Hx Gall Bladder Disease: No Hx Gastroesophageal Reflux: No Hx Ileostomy: No Hx Liver Failure: No Hx Pancreatitis: No HX Swallowing Problems: No - GENITOURINARY/GYNECOLOGICAL Hx Genitourinary Disorders: No Hx Hematuria: No Hx Incontinence: No Hx Sexually Transmitted Disorders: No Hx Urinary Tract Infection: No - PSYCHIATRIC Hx Psychophysiologic Disorder: No Hx Anxiety: No Hx Bipolar Disorder: No Hx Depression: No Hx Emotional Abuse: No Hx Hallucinations: No Hx Panic Symptoms: No Hx Post Traumatic Stress Disorder: No Hx Psychosis: No Hx Physical Abuse: No Hx Schizophrenia: No Hx Sexual Abuse: No Hx Substance Use: No - SURGICAL HISTORY Hx Amputation: No Hx Appendectomy: No Hx Cardiac Catheterization: Yes Hx Cholecystectomy: No Hx Coronary Stent: Yes Hx Gastric Bypass Surgery: No Hx Hysterectomy: No Hx Joint Replacement: No Hx Kidney Transplant: No Hx Liver Transplant: No Hx Mastectomy: No Hx Musculoskeletal Surgery: No Hx Open Heart Surgery: No Hx Orthopedic Surgery: No Hx Splenectomy: No Hx Valve Replacement: No - ANESTHESIA Hx Anesthesia Reactions: No Hx Malignant Hyperthermia: No Meds Allergies/Adverse Reactions: Allergies Allergy/AdvReac Type Severity Reaction Status Date / Time codeine Allergy DIZZINESS Verified 08/17/16 03:27 erythromycin base Allergy ANAPHYLAXIS Verified 08/17/16 03:27 promethazine Allergy HEADACHE Verified 08/17/16 03:27 ciprofloxacin [From Cipro] AdvReac DIZZINESS Verified 08/17/16 03:27 ciprofloxacin HCl AdvReac DIZZINESS Verified 08/17/16 03:27 [From Cipro] Results - Vital Signs Recent Vital Signs: Last Vital Signs Temp 97.8 F 01/15/17 03:05 Pulse 93 H 01/15/17 05:19 Resp 14 01/15/17 05:19 BP 107/61 01/15/17 05:19 Pulse Ox 99 01/15/17 05:19 - Labs Result Diagrams: 01/15/17 03:26 01/15/17 03:26 Labs: Laboratory Results - last 24 hr 01/15/17 01/15/17 01/15/17 03:26 03:26 03:26 WBC 11.4 H D RBC 3.81 Hgb 10.3 L Hct 32.5 L MCV 85.3 MCH 27.0 MCHC 31.7 RDW 14.7 H Plt Count 355 MPV 9.6 Gran % 65.2 Lymph % (Auto) 24.2 Nobles % (Auto) 5.6 Eos % (Auto) 4.6 Baso % (Auto) 0.4 Gran # 7.42 H Lymph # 2.8 Nobles # 0.6 Eos # 0.5 Baso # 0.04 PT 10.5 INR 0.96 APTT 32.2 pCO2 pO2 HCO3 ABG pH ABG Total CO2 ABG O2 Saturation ABG O2 Content ABG Base Excess ABG Hemoglobin ABG Carboxyhemoglobin POC ABG HHb (Measured) ABG Methemoglobin ABG O2 Capacity Hgb O2 Saturation FiO2 Sodium 140 Potassium 4.6 Chloride 101 Carbon Dioxide 26 Anion Gap 18 BUN 37 H Creatinine 1.7 H Est GFR ( Amer) 37 Est GFR (Non-Af Amer) 30 Random Glucose 155 H Calcium 9.7 Total Bilirubin 0.5 AST 19 ALT 25 Alkaline Phosphatase 102 Lactate Dehydrogenase 422 Total Creatine Kinase 37 Troponin I 0.03 D NT-Pro-B Natriuret Pep 7300 H Total Protein 7.8 Albumin 4.6 Globulin 3.3 Albumin/Globulin Ratio 1.4 01/15/17 05:01 WBC RBC Hgb Hct MCV MCH MCHC RDW Plt Count MPV Gran % Lymph % (Auto) Nobles % (Auto) Eos % (Auto) Baso % (Auto) Gran # Lymph # Nobles # Eos # Baso # PT INR APTT pCO2 50 H pO2 82.0 HCO3 24.0 ABG pH 7.29 L ABG Total CO2 25.5 ABG O2 Saturation 98.0 ABG O2 Content 12.8 L ABG Base Excess -2.7 L ABG Hemoglobin 9.5 L ABG Carboxyhemoglobin 2.1 H POC ABG HHb (Measured) 1.9 ABG Methemoglobin 0.8 ABG O2 Capacity 13.1 L Hgb O2 Saturation 95.2 FiO2 50.0 Sodium Potassium Chloride Carbon Dioxide Anion Gap BUN Creatinine Est GFR ( Amer) Est GFR (Non-Af Amer) Random Glucose Calcium Total Bilirubin AST ALT Alkaline Phosphatase Lactate Dehydrogenase Total Creatine Kinase Troponin I NT-Pro-B Natriuret Pep Total Protein Albumin Globulin Albumin/Globulin Ratio
[2017-01-15 08:20] LABS: RETIC% 0.89 % (0.5-1.5)
[2017-01-15 08:22] LABS: IRON 40 ug/dL (45-180)
--- NOTE | 2017-01-15 08:24 | RAD ---
HISTORY: chest pain COMPARISON: 08/17/2016 FINDINGS: LUNGS: No active pulmonary disease. PLEURA: No significant pleural effusion identified, no pneumothorax apparent. CARDIOVASCULAR: There is severe vascular and interstitial congestion OSSEOUS STRUCTURES: No significant abnormalities. VISUALIZED UPPER ABDOMEN: Normal. OTHER FINDINGS: None. IMPRESSION: CHF
--- NOTE | 2017-01-15 08:26 | CON ---
DATE: PULMONARY CONSULTATION: REFERRING PHYSICIAN: Terrence White MD REASON FOR CONSULTATION: Chronic obstructive pulmonary disease. HISTORY OF PRESENT ILLNESS: The patient is a 61-year-old female, with past medical history significant for advanced chronic obstructive pulmonary disease, positive extensive smoking history, extensive coronary artery disease, status post multiple cardiac stents, status post myocardial infarction in the past, recurrent congestive heart failure, cardiomyopathy, and diabetes mellitus, who presents to [facility] with worsening shortness of breath at rest and dyspnea on exertion - starting at approximately 9:00 p.m. last night. The patient also states to a minimal cough with no significant sputum production. The patient also presented to the emergency room with midsternal chest pain. No history of coughing up of blood. No history of chest pain - made worse with deep respirations. There is no history of temperatures, chills or infectious exposure. There is no history of night sweats, weight loss or appetite change prior to the above events. No history of leg or calf pains. No history of syncope or diaphoresis. No history of recent travel or trauma. REVIEW OF SYSTEMS: No history of nausea, vomiting or diarrhea. No acute urinary symptoms. No new neurologic or musculoskeletal complaints. Rest of the review of systems is negative. ALLERGIES: CODEINE, PROMETHAZINE, AND CIPROFLOXACIN. SOCIAL HISTORY: Positive for extensive tobacco usage. No alcohol. FAMILY HISTORY: Positive for heart disease. HOME MEDICATIONS: Include Daliresp, isosorbide mononitrate, albuterol nebulizer treatments, Ranexa, Cozaar, Crestor, Plavix, Lasix, Coreg, and Amaryl. PHYSICAL EXAMINATION: GENERAL: The patient is not short of breath at the current time. She is resting comfortably. She is not using accessory muscles for breathing. VITAL SIGNS: Temperature is 97.8, pulse is 85, respirations are 16/18, blood pressure is 135/64, and oxygen saturation - last measured on BiPAP - 100%. HEENT: Normocephalic, atraumatic. No JVD. CARDIOVASCULAR: Positive S1 and S2. Positive S3 gallop. LUNGS: Crackles at both bases. Mild bilateral rhonchi. No wheezing. EXTREMITIES: No clubbing, cyanosis or edema. Calves are nontender to palpation. GASTROINTESTINAL: Abdomen is soft, nontender, and nondistended. Bowel sounds are positive. SKIN: No acute rash. NEUROLOGIC: Limited at the present time. CURRENT LABORATORY DATA: Chest x-ray was done in the emergency room and reviewed. There is acute severe pulmonary edema noted. CBC: White count 11.4, hemoglobin 10.3, hematocrit 32.5, and platelets of 355,000K. Arterial blood gas was done on BiPAP with 50% oxygen. Results are: PH of 7.29, pCO2 of 50, and pO2 of 82. Complete metabolic profile: BUN 37, creatinine 1.7, and glucose 155. B-type natriuretic peptide 7300. Rest of the metabolic profile is within normal limits. IMPRESSION: 1. Acute, recurrent congestive heart failure. 2. Extensive coronary artery disease. 3. Cardiomyopathy. 4. Advanced chronic obstructive pulmonary disease. 5. Diabetes mellitus. PLAN: I did discuss the case with the patient and at length. I also discussed the case with Dr. Quinones (emergency room) at length. I have also reviewed the chart at length. The patient presents to [facility] with main complaints of acute shortness of breath at rest and dyspnea on exertion - starting 9:00 p.m. last night. In addition, the patient also presents with midsternal chest pain. She offers no other significant pulmonary symptoms. I did review the chest x-ray as above. The chest x-ray shows significant pulmonary edema. I have also reviewed the arterial blood gas. The arterial blood gas is consistent with a mild respiratory acidosis, with a significant increase in the alveolar-arterial gradient. On physical exam, there is only minimal bronchospasm noted. The patient has been started on nebulizer treatments and low-dose intravenous steroids by the resident team. Again, I did discuss the case with the patient, , and ER physician at length. They all state to the fact that the patient is significantly improved(after diuretics) - compared to her initial presentation. Repeat labs are ordered. Repeat chest x-ray is also ordered. Additional pulmonary intervention will be based on the clinical status of the patient, as well as the above results. I will discuss the above with the attending physician. Thank you very much for this pulmonary consultation. Sulaiman Sevilla MD [facility] # [id number] MTDD
[2017-01-15] MEDS: Insulin Reg-LOW-Coverage SC SCH ×4 (08:38→23:02)
[2017-01-15] MEDS: Albuterol-Ipratrop 3 mg / 0.5 (3 ml) UD IH SCH ×3 (09:08→20:40)
[2017-01-15] MEDS: MethylPREDNISolone 40 mg Vial IVP SCH ×2 (09:36→23:06)
[2017-01-15] MEDS: Ranolazine [Ranexa] 500 MG (HOME MED) PO SCH ×3 (10:22→17:41)
--- NOTE | 2017-01-15 10:51 | CARD ---
APPROVED REPORT EKG Measurement Heart [id number] <Conclusion> Normal sinus rhythm ST & T wave abnormality, consider lateral ischemia Prolonged QT Abnormal ECG
--- NOTE | 2017-01-15 12:32 | CARD ---
APPROVED REPORT EKG Measurement Heart [id number] <Conclusion> Normal sinus rhythm Possible Left atrial enlargement ST & T wave abnormality, consider anterolateral ischemia Prolonged QT Abnormal ECG
--- NOTE | 2017-01-15 13:04 | CP.PCM.CON ---
History of Present Illness - History of Present Illness History of Present Illness: 61 y/o female presents with episode of CP: occurred last nite at 9pm described as sharp pain L. side with radiation to neck and L. arm: now resolved completely. She also hashad some congestion and SOB. Baseline NYHA 2-3. She reports eating out recently and possible inc sodium intake. No syncope, fevers, chills, N/V, no diaphoresis or visible volume overload. Cardiac Hx: > CAD and mild ischemic cardiomyopathy which is a significant improvement from prior echo done before PCI 08/2016 > LAD stent 12/2015 > LCX/OM stent 08/2016 > Last echo done 09/04/16 at [facility] EF was 46% improved from 35-40% in past. PAD: known occlusion of L. popliteal aa PMHX: LIPIDS chronic stable, HTN chronic labile, Hx of GI bleed in past but has tolerated DAPT after her PCI in 08/2016. SOCHX: prior smoker, no etoh or drugs ROS: all 12 systems negative except that in HPI Review of Systems - Review of Systems All systems: reviewed and no additional remarkable complaints except Past Patient History - Infectious Disease Hx of Infectious Diseases: None - Past Social History Smoking Status: Former Smoker - CARDIAC Hx Cardiac Disorders: Yes Hx Angina: No Hx Cardia Arrhythmia: No Hx Circulatory Problems: Yes Hx Congestive Heart Failure: No Hx Heart Murmur: No Hx Heart Transplant: No Hx Hypertension: Yes Hx Internal Defibrillator: No Hx Mitral Valve Prolapse: No Hx Pacemaker: No Hx Peripheral Edema: No Hx Peripheral Vascular Disease: Yes - PULMONARY Hx Respiratory Disorders: Yes Hx Asthma: No Hx Bronchitis: No Hx Chronic Obstructive Pulmonary Disease (COPD): Yes Hx Emphysema: No Hx Pneumonia: Yes Hx Respiratory Aspiration: No Hx Respiratory Tract Infection: No Hx Sleep Apnea: No Hx Tuberculosis: No - NEUROLOGICAL Hx Neurological Disorder: No Hx Alzheimer's Disease: No HX Cerebrovascular Accident: No Hx Dementia: No Hx Dizziness: No Hx Meningitis: No Hx Migraine: No Hx Parkinson's Disease: No Hx Seizures: No Hx Transient Ischemic Attacks (TIA): No - HEENT Hx HEENT Problems: No Hx Blind: No Hx Cataracts: No Hx Deafness: No Hx Difficulty Chewing: No Hx Epistaxis: No Hx Glaucoma: No Hx Macular Degeneration: No - RENAL Hx Chronic Kidney Disease: No Hx Dialysis: No Hx Kidney Stones: No Hx Neurogenic Bladder: No Hx Pyelonephritis: No Hx Renal (Kidney) Cancer: No Hx Renal Failure: No - ENDOCRINE/METABOLIC Hx Endocrine Disorders: Yes Hx Adrenal Cancer: No Hx Diabetes Insipidus: No Hx Diabetes Mellitus Type 1: No Hx Diabetes Mellitus Type 2: Yes Hx Hyperthyroidism: No Hx Hypothyroidism: No Hx Systemic Lupus Erythematosus: No - HEMATOLOGICAL/ONCOLOGICAL Hx Blood Disorders: No Hx AIDS: No Hx Anemia: No Hx Cancer: No Hx Chemotherapy: No Hx Cirrhosis: No Hx Hemophilia: No Hx Hepatitis A: No Hx Hepatitis B: No Hx Hepatitis C: No Hx Metastesis: No Hx Shingles: No Hx Sickle Cell Disease: No Hx Unexplained Bleeding: No - INTEGUMENTARY Hx Dermatological Problems: No Hx Basil Cell: No Hx Eczema: No Hx Melanoma: No Hx Psoriasis: No Hx Squamous Cell: No - MUSCULOSKELETAL/RHEUMATOLOGICAL Hx Falls: No - GASTROINTESTINAL Hx Gastrointestinal Disorders: No Hx Colostomy: No Hx Crohn's Disease: No Hx Diverticulitis: No Hx Gall Bladder Disease: No Hx Gastroesophageal Reflux: No Hx Ileostomy: No Hx Liver Failure: No Hx Pancreatitis: No HX Swallowing Problems: No - GENITOURINARY/GYNECOLOGICAL Hx Genitourinary Disorders: No Hx Hematuria: No Hx Incontinence: No Hx Sexually Transmitted Disorders: No Hx Urinary Tract Infection: No - PSYCHIATRIC Hx Psychophysiologic Disorder: No Hx Anxiety: No Hx Bipolar Disorder: No Hx Depression: No Hx Emotional Abuse: No Hx Hallucinations: No Hx Panic Symptoms: No Hx Post Traumatic Stress Disorder: No Hx Psychosis: No Hx Physical Abuse: No Hx Schizophrenia: No Hx Sexual Abuse: No Hx Substance Use: No - SURGICAL HISTORY Hx Amputation: No Hx Appendectomy: No Hx Cardiac Catheterization: Yes Hx Cholecystectomy: No Hx Coronary Stent: Yes Hx Gastric Bypass Surgery: No Hx Hysterectomy: No Hx Joint Replacement: No Hx Kidney Transplant: No Hx Liver Transplant: No Hx Mastectomy: No Hx Musculoskeletal Surgery: No Hx Open Heart Surgery: No Hx Orthopedic Surgery: No Hx Splenectomy: No Hx Valve Replacement: No - ANESTHESIA Hx Anesthesia Reactions: No Hx Malignant Hyperthermia: No Meds Allergies/Adverse Reactions: Allergies Allergy/AdvReac Type Severity Reaction Status Date / Time codeine Allergy DIZZINESS Verified 01/15/17 12:00 erythromycin base Allergy ANAPHYLAXIS Verified 01/15/17 12:00 promethazine Allergy HEADACHE Verified 01/15/17 12:00 ciprofloxacin [From Cipro] AdvReac DIZZINESS Verified 01/15/17 12:00 ciprofloxacin HCl AdvReac DIZZINESS Verified 01/15/17 12:00 [From Cipro] - Medications Medications: Current Medications Albuterol/Ipratropium (Duoneb 3 Mg/0.5 Mg (3 Ml) Ud) 3 ml IH [id number] [facility] Last Admin: 01/15/17 09:08 Dose: 3 ml Albuterol/Ipratropium (Duoneb 3 Mg/0.5 Mg (3 Ml) Ud) 3 ml IH Q2H PRN PRN Reason: Shortness of Breath Aspirin (Ecotrin) 81 mg PO DAILY [facility] Last Admin: 01/15/17 09:43 Dose: Not Given Atorvastatin Calcium (Lipitor) 80 mg PO DIN [facility] Carvedilol (Coreg) 25 mg PO BID [facility] Last Admin: 01/15/17 09:41 Dose: 25 mg Clopidogrel Bisulfate (Plavix) 75 mg PO DAILY [facility] Last Admin: 01/15/17 09:35 Dose: 75 mg Famotidine (Pepcid) 40 mg PO HS [facility] Furosemide (Lasix) 40 mg IVP DAILY [facility] Last Admin: 01/15/17 09:35 Dose: 40 mg Heparin Sodium (Porcine) (Heparin) 5,000 units SC Q12 [facility] PRN Reason: Protocol Last Admin: 01/15/17 09:36 Dose: 5,000 units Nitroglycerin/Dextrose (Nitroglycerin 50 Mg/250 Ml D5w) 50 mg in 250 mls @ 3 mls/hr IV .Q24H PRN; Protocol; 10 MCG/MIN PRN Reason: Titrate per protocol Last Admin: 01/15/17 03:38 Dose: 3 mls/hr Doxycycline Hyclate 100 mg/ (Sodium Chloride) 100 mls @ 100 mls/hr IVPB Q12 [facility] PRN Reason: Protocol Last Admin: 01/15/17 10:11 Dose: 100 mls/hr Insulin Human Regular (Humulin R Low) 0 units SC ACHS [facility] PRN Reason: Protocol Last Admin: 01/15/17 12:45 Dose: 4 units Methylprednisolone (Solu-Medrol) 40 mg IVP Q12 [facility] Last Admin: 01/15/17 09:36 Dose: 40 mg Ranolazine [Ranexa] (500 Mg (Home Med)) 500 mg PO BID [facility] Last Admin: 01/15/17 10:22 Dose: Not Given Roflumilast (Daliresp) 500 mcg PO HS [facility] Physical Exam - Constitutional Appears: No Acute Distress - Head Exam Head Exam: ATRAUMATIC, NORMAL INSPECTION, NORMOCEPHALIC - Eye Exam Eye Exam: EOMI, Normal appearance, PERRL - ENT Exam ENT Exam: Mucous Membranes Moist, Normal Oropharynx - Respiratory Exam Respiratory Exam: Rales, NORMAL BREATHING PATTERN. absent: Wheezes - Cardiovascular Exam Cardiovascular Exam: REGULAR RHYTHM, +S1, +S2. absent: +S4, Systolic Murmur - GI/Abdominal Exam GI & Abdominal Exam: Normal Bowel Sounds, Soft. absent: Tenderness - Extremities Exam Extremities exam: Positive for: normal inspection. Negative for: calf tenderness, pedal pulses present - Neurological Exam Neurological exam: Alert, Oriented x3 - Psychiatric Exam Psychiatric exam: Normal Affect, Normal Mood - Skin Skin Exam: Normal Color, Warm Results - Vital Signs Recent Vital Signs: Last Vital Signs Temp 97.8 F 01/15/17 03:05 Pulse 83 01/15/17 10:00 Resp 14 01/15/17 06:03 BP 146/59 L 01/15/17 09:41 Pulse Ox 100 01/15/17 06:03 - Labs Result Diagrams: 01/15/17 03:26 01/15/17 03:26 Labs: Laboratory Results - last 24 hr 01/15/17 01/15/17 01/15/17 06:10 07:50 07:50 Retic Count 0.89 Iron 40 L TIBC 260 L % Saturation 16 L Ferritin 143.0 Troponin I 01/15/17 09:25 Retic Count Iron TIBC % Saturation Ferritin Troponin I 0.35 H* D - EKG Data EKG Interpreted by: Myself (NSR, chronic lateral ST changes unchanged since August 2016, normal intervals, old septal infarct) Assessment & Plan - Assessment and Plan (Free Text) Assessment: CP > BDLN inc in troponin >Known LAD stent 12/2015 > KNOWN lcx/om STENT 08/2016 > lvef HAS RECOVERED TO 46% POST pci 08/2016 mILD ANEMIA: NO GROSS BLOOD LOSS CXR: B/L congestion, mild-mod volume overload Mild CKD/PAULINO * troponin may be related to acute CHF exacerbation, hypertensive diastolic dysfunction precipitated by inc Na intake * Other considerations are CKD/PAULINO Given known CAD and chronic ST changes: demand ischemia can also cause in troponin. I feel troponin elevation would be significantly higher if there was a late stent thrombosis. She has been compliant with meds PLAN: >> echo to re-eval for worsening CHF or acute wall motion change to help guide need for re cath. >> Suggest Heparin GTT: given hx of GI bleed, monitor H/H and cont GI prophylaxis >> Add Norvasc 10 for BP control >> Cont NTG for now can eventually change to IMDUR 60 daily, Cont Ranexa 500 BID >> COnt high intesnsity Statin and Coreg for now. >> continue to trend troponin Will follow.
[2017-01-15 13:12] VITALS: BMI 21.5
[2017-01-15] MEDS ORDERED: Influenza Vaccine 60 mcg/0.5 mL SYR (4YR UP) IM ONE (13:12)
[2017-01-15] MEDS ORDERED: Pneumococcal 23-Valent Vaccine IM ONE (13:12)
[2017-01-15 13:23] LABS: FOLATE 8.7 ng/mL
[2017-01-15] MEDS: Heparin 25,000units in D5W 25,000 UNITS/250 ML BAG IV SCH (14:33)
--- NOTE | 2017-01-15 16:16 | CP.PCM.CON ---
History of Present Illness - History of Present Illness History of Present Illness: Initial Nephrology Consultation: Assessment: critical Acute Kidney Injury (N17.9) likely hemodynamic due to Bp changes, possible cardiorenal Diabetic chronic Kidney Disease (E11.22) Hypertensive Chronic Kidney Disease (I12.9) Chronic Kidney Disease (N18.3) Stage 3 with ? mg proteinuria (R80.9) likely due to DM Anemia (D64.9), HTN (I12.9) COPD, ex heavy smoker, CAD s/p stent, chronic sys CHF, PVD left adrenal adenoma angina, HTN urgency, pulmonary edema Plan No acute need for renal replacement therapy at this time. Hypertension control with meds as ordered. Patient not on ACEI/ARB due to PAULINO, consider once stable renal function Monitor Input/Output, daily weights and renal function with basic metabolic panel continue with diuretics add iron supplements for anemia. DEBBIE not indicated at this time Check urine analysis, spot protein/creatinine and albumin/creatinine ratio check serum protein electrophoresis with immunofixation adrenal adenoma work up: renin/cholo and metanephrines level tomorrow am. Dexa suppression test for cortisol as outpt sec HTN work up also to check renal artery doppler Dose meds/antibiotics for reduced GFR. Avoid fleets enema/magnesium based laxatives. Avoid nephrotoxins/NSAIDs/ iodinated contrast (unless needed emergently) Glycemic control Further work up/management as per primary team Thanks for allowing me to participate in care of your patient. Will follow patient with you. Please call if any Qs Dr Clemente Addison Office: [phone] Chief Complaint; chest pain and SOB HPI: Pt is a 61 F with hx of diabetes Mellitus ( 15 years) with neuropathy and retinopathy, hypertension (couple years) but only lately BP this high, COPD, ex heavy smoker, CAD s/p stent, chronic sys CHF, PVD, CKD 3 (baseline cr 1.1-1.3) and left adrenal adenoma (2cm) presented with complaints of chest pain and SOB last night, admitted with angina, HTN urgency, pulmonary edema. now she feels better Denies chest pain, palpitation, shortness of breath, leg swelling now Denies blood or bubbles in urine Denies OTC/herbal meds or NSAIDs No recent iodinated contrast exposure. ROS: Constitutional Symptoms: Denies fever. No chills. No Recent Weight Changes Eyes: denies change in vision, denies watery eyes, denies double vision Ears/Nose/Mouth/Throat: Denies Abnormal Taste. No Bad breath no Bad Taste. Cardiovascular: c/o chest pain. c/o palpitations. Pulmonary: c/o shortness of breath no cough. Gastrointestinal: denies abdominal pain No nausea. No vomiting. Denies change in bowel habits. Denies Bleeding Genitourinary: No Change in force of strain when urinating. No increase in urinary frequency. No pain while urinating. Denies blood in urine. Neurological: Denies headaches. No dizziness. Denies loss of balance. Denies weakness, denies tingling/numbness Dermatological: No Rash or Bruising or ulcers. Psychiatric: Denies Anxiety. No depression. Denies hallucinations. Rheumatological: No joint pain. Denies Joint swelling Endocrine: Denies tiredness/Fatigue denies Heat/Cold Intolerance. All other negative Physical Examination: General Appearance: Comfortable, in no acute respiratory distress, co-operative . Vitals reviewed and noted as below Head; Atraumatic, normocephalic ENT: no ulcers no thrush. Tongue is midline. Oropharynx: no rash or ulcers. EYES: Pupils are equal, round and reactive to light accommodation. Eye muscles and extraocular movement intact. Sclera is anicteric. Neck; supple no lymphadenopathy, no thyromegaly or bruit Lungs: Normal respiratory rate/effort. Breath sounds bilateral equal and bibasl crackles Heart: Normal rate. s1s2 normal. No rub or gallop. Extremities: no edema. No varicose veins Neurological: Patient is alert, awake and oriented to person, place and time. No focal deficit. Strength bilateral appropriate and equal Skin: Warm and dry. Normal turgor. No rash. Palpitation: Normal elasticity for age Abdomen: Abdomen is soft. Bowel sounds +. There is no abdominal tenderness, no guarding/rigidity no organomegaly. no bruit Psych: normal insight and normal affect/mood MSK: no joint tenderness or swelling. Digits and nails normal, no deformity : kidney or bladder not palpable Labs/imaging reviewed. Past medical history, past surgical history, family history, social history, allergy reviewed and noted as below Family hx: no hx of CKD. Rest non-contributory work up: CT abdomen: renal normal, left adrenal adenoma in 2013- renal artery normal on angiogram Past Patient History - Infectious Disease Hx of Infectious Diseases: None - Past Social History Smoking Status: Former Smoker - CARDIAC Hx Cardiac Disorders: Yes Hx Angina: No Hx Cardia Arrhythmia: No Hx Circulatory Problems: Yes Hx Congestive Heart Failure: No Hx Heart Murmur: No Hx Heart Transplant: No Hx Hypertension: Yes Hx Internal Defibrillator: No Hx Mitral Valve Prolapse: No Hx Pacemaker: No Hx Peripheral Edema: No Hx Peripheral Vascular Disease: Yes - PULMONARY Hx Respiratory Disorders: Yes Hx Asthma: No Hx Bronchitis: No Hx Chronic Obstructive Pulmonary Disease (COPD): Yes Hx Emphysema: No Hx Pneumonia: Yes Hx Respiratory Aspiration: No Hx Respiratory Tract Infection: No Hx Sleep Apnea: No Hx Tuberculosis: No - NEUROLOGICAL Hx Neurological Disorder: No Hx Alzheimer's Disease: No HX Cerebrovascular Accident: No Hx Dementia: No Hx Dizziness: No Hx Meningitis: No Hx Migraine: No Hx Parkinson's Disease: No Hx Seizures: No Hx Transient Ischemic Attacks (TIA): No - HEENT Hx HEENT Problems: No Hx Blind: No Hx Cataracts: No Hx Deafness: No Hx Difficulty Chewing: No Hx Epistaxis: No Hx Glaucoma: No Hx Macular Degeneration: No - RENAL Hx Chronic Kidney Disease: No Hx Dialysis: No Hx Kidney Stones: No Hx Neurogenic Bladder: No Hx Pyelonephritis: No Hx Renal (Kidney) Cancer: No Hx Renal Failure: No - ENDOCRINE/METABOLIC Hx Endocrine Disorders: Yes Hx Adrenal Cancer: No Hx Diabetes Insipidus: No Hx Diabetes Mellitus Type 1: No Hx Diabetes Mellitus Type 2: Yes Hx Hyperthyroidism: No Hx Hypothyroidism: No Hx Systemic Lupus Erythematosus: No - HEMATOLOGICAL/ONCOLOGICAL Hx Blood Disorders: No Hx AIDS: No Hx Anemia: No Hx Cancer: No Hx Chemotherapy: No Hx Cirrhosis: No Hx Hemophilia: No Hx Hepatitis A: No Hx Hepatitis B: No Hx Hepatitis C: No Hx Metastesis: No Hx Shingles: No Hx Sickle Cell Disease: No Hx Unexplained Bleeding: No - INTEGUMENTARY Hx Dermatological Problems: No Hx Basil Cell: No Hx Eczema: No Hx Melanoma: No Hx Psoriasis: No Hx Squamous Cell: No - MUSCULOSKELETAL/RHEUMATOLOGICAL Hx Falls: No - GASTROINTESTINAL Hx Gastrointestinal Disorders: No Hx Colostomy: No Hx Crohn's Disease: No Hx Diverticulitis: No Hx Gall Bladder Disease: No Hx Gastroesophageal Reflux: No Hx Ileostomy: No Hx Liver Failure: No Hx Pancreatitis: No HX Swallowing Problems: No - GENITOURINARY/GYNECOLOGICAL Hx Genitourinary Disorders: No Hx Hematuria: No Hx Incontinence: No Hx Sexually Transmitted Disorders: No Hx Urinary Tract Infection: No - PSYCHIATRIC Hx Psychophysiologic Disorder: No Hx Anxiety: No Hx Bipolar Disorder: No Hx Depression: No Hx Emotional Abuse: No Hx Hallucinations: No Hx Panic Symptoms: No Hx Post Traumatic Stress Disorder: No Hx Psychosis: No Hx Physical Abuse: No Hx Schizophrenia: No Hx Sexual Abuse: No Hx Substance Use: No - SURGICAL HISTORY Hx Amputation: No Hx Appendectomy: No Hx Cardiac Catheterization: Yes Hx Cholecystectomy: No Hx Coronary Stent: Yes Hx Gastric Bypass Surgery: No Hx Hysterectomy: No Hx Joint Replacement: No Hx Kidney Transplant: No Hx Liver Transplant: No Hx Mastectomy: No Hx Musculoskeletal Surgery: No Hx Open Heart Surgery: No Hx Orthopedic Surgery: No Hx Splenectomy: No Hx Valve Replacement: No - ANESTHESIA Hx Anesthesia Reactions: No Hx Malignant Hyperthermia: No Meds Allergies/Adverse Reactions: Allergies Allergy/AdvReac Type Severity Reaction Status Date / Time codeine Allergy DIZZINESS Verified 01/15/17 12:00 erythromycin base Allergy ANAPHYLAXIS Verified 01/15/17 12:00 promethazine Allergy HEADACHE Verified 01/15/17 12:00 ciprofloxacin [From Cipro] AdvReac DIZZINESS Verified 01/15/17 12:00 ciprofloxacin HCl AdvReac DIZZINESS Verified 01/15/17 12:00 [From Cipro] - Medications Medications: Current Medications Albuterol/Ipratropium (Duoneb 3 Mg/0.5 Mg (3 Ml) Ud) 3 ml IH [id number] [facility] Last Admin: 01/15/17 13:29 Dose: 3 ml Albuterol/Ipratropium (Duoneb 3 Mg/0.5 Mg (3 Ml) Ud) 3 ml IH Q2H PRN PRN Reason: Shortness of Breath Amlodipine Besylate (Norvasc) 10 mg PO DAILY [facility] Last Admin: 01/15/17 14:25 Dose: 10 mg Aspirin (Ecotrin) 81 mg PO DAILY [facility] Last Admin: 01/15/17 09:43 Dose: Not Given Atorvastatin Calcium (Lipitor) 80 mg PO DIN [facility] Carvedilol (Coreg) 25 mg PO BID [facility] Last Admin: 01/15/17 09:41 Dose: 25 mg Clopidogrel Bisulfate (Plavix) 75 mg PO DAILY [facility] Last Admin: 01/15/17 09:35 Dose: 75 mg Famotidine (Pepcid) 40 mg PO HS [facility] Furosemide (Lasix) 40 mg IVP DAILY [facility] Last Admin: 01/15/17 09:35 Dose: 40 mg Nitroglycerin/Dextrose (Nitroglycerin 50 Mg/250 Ml D5w) 50 mg in 250 mls @ 3 mls/hr IV .Q24H PRN; Protocol; 10 MCG/MIN PRN Reason: Titrate per protocol Last Admin: 01/15/17 03:38 Dose: 3 mls/hr Doxycycline Hyclate 100 mg/ (Sodium Chloride) 100 mls @ 100 mls/hr IVPB Q12 [facility] PRN Reason: Protocol Last Admin: 01/15/17 10:11 Dose: 100 mls/hr Heparin Sodium/Dextrose (Heparin 25,000 Units/250ml In D5w) 25,000 units in 250 mls @ 6.423 mls/hr IV .Q24H QUIRINO; 12 UNITS/KG/HR PRN Reason: Protocol Last Admin: 01/15/17 14:33 Dose: 12 units/kg/hr, 6.423 mls/hr Insulin Human Regular (Humulin R Low) 0 units SC ACHS [facility] PRN Reason: Protocol Last Admin: 01/15/17 12:45 Dose: 4 units Methylprednisolone (Solu-Medrol) 40 mg IVP Q12 [facility] Last Admin: 01/15/17 09:36 Dose: 40 mg Ranolazine [Ranexa] (500 Mg (Home Med)) 500 mg PO BID [facility] Last Admin: 01/15/17 10:22 Dose: Not Given Roflumilast (Daliresp) 500 mcg PO [facility] Results - Vital Signs Recent Vital Signs: Last Vital Signs Temp 98 F 01/15/17 13:57 Pulse 85 01/15/17 14:00 Resp 18 01/15/17 13:57 BP 156/59 H 01/15/17 14:25 Pulse Ox 100 01/15/17 06:03 - Labs Result Diagrams: 01/15/17 03:26 01/15/17 03:26 Labs: Laboratory Results - last 24 hr 01/15/17 01/15/17 01/15/17 06:10 07:50 07:50 Retic Count 0.89 POC Glucose (mg/dL) Iron 40 L TIBC 260 L % Saturation 16 L Ferritin Troponin I Vitamin B12 Folate Procalcitonin 0.07 L 01/15/17 01/15/17 01/15/17 07:50 08:30 09:25 Retic Count POC Glucose (mg/dL) 293 H Iron TIBC % Saturation Ferritin 143.0 Troponin I 0.35 H* D Vitamin B12 438 Folate 8.7 Procalcitonin 01/15/17 01/15/17 12:03 15:19 Retic Count POC Glucose (mg/dL) 304 H Iron TIBC % Saturation Ferritin Troponin I 1.56 H* D Vitamin B12 Folate Procalcitonin
[2017-01-15] MEDS ORDERED: Ranolazine [Ranexa] 500 MG (HOME MED) PO SCH (17:56)
[2017-01-15 22:29] LABS: URINE BILIRUBIN NEGATIVE (NEGATIVE); URINE BLOOD TRACE-INTACT (NEGATIVE); URINE GLUCOSE (UA) 100 mg/dL (NEGATIVE); URINE KETONE NEGATIVE (NEGATIVE); URINE LEUKOCYTE ESTERASE NEGATIVE Leu/uL (NEGATIVE); URINE PROTEIN 100 mg/dL (<30 mg/dL); URINE UROBILINOGEN 0.2 E.U./dL (<1 E.U./dL)
[2017-01-15 22:32] LABS: URINE APPEARANCE CLEAR (CLEAR); URINE COLOR YELLOW (YELLOW)
[2017-01-15 22:36] LABS: URINE WBC 0 - 2 /hpf (0-6)
[2017-01-15 22:37] LABS: URINE BACTERIA MANY (NEG)
[2017-01-15 22:38] LABS: URINE AMORPHOUS SEDIMENT FEW
[2017-01-16] MEDS: Albuterol-Ipratrop 3 mg / 0.5 (3 ml) UD IH SCH ×4 (03:00→20:45)
[2017-01-16 05:28] LABS: GRAN # 10.42 (1.4-6.5); GRAN % 90.3 % (50.0-68.0); HEMATOCRIT 28.1 % (36.0-48.0); LYMPH # 0.9 (1.2-3.4); MEAN CELL VOLUME 83.4 fl (80.0-105.0); MEAN CORPUSCULAR HEMOGLOBIN 26.1 pg (25.0-35.0); MEAN CORPUSCULAR HGB CONC 31.3 g/dl (31.0-37.0); MEAN PLATELET VOLUME 9.4 fl (7.0-11.0); MONO # 0.2 (0.1-0.6); MONO % 1.7 % (1.0-6.0); PLATELET COUNT 305 10^3/uL (120.0-450.0); RED CELL DISTRIBUTION WIDTH 14.7 % (11.5-14.5); WHITE BLOOD COUNT 11.5 10^3/ul (4.5-11.0)
[2017-01-16 05:46] LABS: ALB/GLOB RATIO 1.5 (1.1-1.8); BILIRUBIN,TOTAL 0.5 mg/dL (0.2-1.3); PHOSPHOROUS 4.8 mg/dL (2.5-4.5); POTASSIUM 4.2 mmol/L (3.6-5.0); TOTAL PROTEIN 7.2 g/dL (5.8-8.3)
[2017-01-16 05:56] LABS: BAND 6 % (0-2); NEUTROPHIL 90 % (50.0-70.0)
[2017-01-16 05:58] LABS: PLATELET ESTIMATE NORMAL (NORMAL)
[2017-01-16 06:04] LABS: TROPONIN I 0.8 ng/mL
[2017-01-16 06:59] VITALS: RESP 20
--- NOTE | 2017-01-16 08:29 | CP.PCM.PN ---
Subjective - Date & Time of Evaluation Date of Evaluation: 01/16/17 Time of Evaluation: 07:30 - Subjective Subjective: IM PROGRESS NOTE DR. HUA/DR. ABBOTT Patient seen and examined at bedside. Overnight patient was transitioned off nitro and placed on imdur. Elevated BP SBP 180 noted. Patietn given lasix early and awaiting imdur at 10 am for recheck of BP. Patient indicates chest pain left pectoral with some radiation to left arm. Patient requested to be placed on BiPAP and pain resolved. Patient reports difficulty with respirations when laying flat, reports breathing tx are helping. Patient denies abdominal pain, nausea, vomiting, fever, chills. Objective - Vital Signs/Intake and Output Vital Signs (last 24 hours): Temp Pulse Resp BP Pulse Ox 98 F 79 20 180/87 H 100 01/16/17 05:30 01/16/17 06:00 01/16/17 05:30 01/16/17 06:08 01/16/17 05:30 Intake and Output: 01/16/17 01/16/17 06:59 18:59 Intake Total 676 Balance 676 - Medications Medications: Current Medications Albuterol/Ipratropium (Duoneb 3 Mg/0.5 Mg (3 Ml) Ud) 3 ml IH [id number] [facility] Last Admin: 01/16/17 07:45 Dose: 3 ml Albuterol/Ipratropium (Duoneb 3 Mg/0.5 Mg (3 Ml) Ud) 3 ml IH Q2H PRN PRN Reason: Shortness of Breath Amlodipine Besylate (Norvasc) 10 mg PO DAILY [facility] Last Admin: 01/15/17 14:25 Dose: 10 mg Aspirin (Ecotrin) 81 mg PO DAILY [facility] Last Admin: 01/15/17 09:43 Dose: Not Given Atorvastatin Calcium (Lipitor) 80 mg PO DIN [facility] Last Admin: 01/15/17 17:27 Dose: 80 mg Carvedilol (Coreg) 25 mg PO BID [facility] Last Admin: 01/15/17 17:27 Dose: 25 mg Clopidogrel Bisulfate (Plavix) 75 mg PO DAILY [facility] Last Admin: 01/15/17 09:35 Dose: 75 mg Famotidine (Pepcid) 40 mg PO HS [facility] Last Admin: 01/15/17 23:06 Dose: 40 mg Ferrous Gluconate (Fergon) 324 mg PO TID [facility] Last Admin: 01/15/17 17:33 Dose: 324 mg Furosemide (Lasix) 40 mg IVP DAILY [facility] Last Admin: 01/16/17 06:08 Dose: 40 mg Doxycycline Hyclate 100 mg/ (Sodium Chloride) 100 mls @ 100 mls/hr IVPB Q12 [facility] PRN Reason: Protocol Last Admin: 01/15/17 23:07 Dose: 100 mls/hr Heparin Sodium/Dextrose (Heparin 25,000 Units/250ml In D5w) 25,000 units in 250 mls @ 6.423 mls/hr IV .Q24H QUIR[facility]; 12 UNITS/KG/HR PRN Reason: Protocol Last Titration: 01/15/17 23:22 Dose: 14 units/kg/hr, 7.493 mls/hr Insulin Human Regular (Humulin R Low) 0 units SC ACHS [facility] PRN Reason: Protocol Last Admin: 01/15/17 23:02 Dose: Not Given Isosorbide Mononitrate (Imdur) 60 mg PO DAILY [facility] Methylprednisolone (Solu-Medrol) 40 mg IVP Q12 [facility] Last Admin: 01/15/17 23:06 Dose: 40 mg Ranolazine [Ranexa] (500 Mg (Home Med)) 500 mg PO BID [facility] Roflumilast (Daliresp) 500 mcg PO HS [facility] Last Admin: 01/15/17 23:07 Dose: 500 mcg - Labs Labs: 01/16/17 05:00 01/16/17 05:00 PT 10.5 SECONDS (9.4-12.5) 01/15/17 03:26 INR 0.96 (0.93-1.08) 01/15/17 03:26 APTT 60.1 Seconds (25.1-36.5) H 01/16/17 05:00 - Constitutional Appears: No Acute Distress - Head Exam Head Exam: ATRAUMATIC, NORMAL INSPECTION, NORMOCEPHALIC - Eye Exam Eye Exam: EOMI, PERRL - ENT Exam ENT Exam: Mucous Membranes Moist - Respiratory Exam Respiratory Exam: Decreased Breath Sounds, Rales (bases bilateral). absent: Rhonchi, Wheezes - Cardiovascular Exam Cardiovascular Exam: REGULAR RHYTHM, +S1, +S2. absent: Murmur - GI/Abdominal Exam GI & Abdominal Exam: Soft, Normal Bowel Sounds. absent: Guarding, Rigid, Tenderness - Extremities Exam Extremities Exam: absent: Calf Tenderness, Pedal Edema - Back Exam Back Exam: NORMAL INSPECTION - Neurological Exam Neurological Exam: Alert, Awake, Oriented x3 Additional comments: motor and sensory grossly intact - Psychiatric Exam Psychiatric exam: Normal Affect, Normal Mood - Skin Skin Exam: Dry, Intact. absent: Rash Assessment and Plan - Assessment and Plan (Free Text) Assessment: Patient is a 61 year old female, whose past medical history includes COPD, CAD with multiple stents, NSTEMI, CHF, PAD with claudication, and neuropathy, who was admitted for evaluation and treatment of chest pain. Patient being medically managed for chest pain, flash pulm edema, PAULINO. Plan: 1. Chest Pain - Etiology: ACS vs. Demand ischemia - Troponin elevation with max at 1.56, trending down at this point - cardiology consulted- appreciate recommendations - Continue Imdur, ranexa, statin, coreg, dc heparin given trop trend - repeat echo showing 40-46% with no high grade wall motion abn, grade 2 DD - no plans for cath, stress as outpatient - Volume overloaded with benefit from lasix, baseline Cr may be elevated and falsely low at this point due to vol overload - DC planning when breathing improves 2. Hypertension - BP control with norvasc, coreg, lasix, imdur - readings and trends appreciated cont monitor 3. Acute on Chronic COPD Exacerbation - duobnebs q4 scheduled, solumedrol 40mg IV Daily - bipap 12, 4 adjust FiO2 to keep SaO2 between 92-95% PRN, QHS - pulmonology consult appreciate recommendations - antibiotiotics- doxcycline, no azithromycin due to QTc prolongation 4. Acute on Chronic CHF Exacerbation - strict i and o - daily weights - lasix 40 IV Daily - previous ECHO EF 20-25% - cardiology consulted- appreciate recommendations 5. PAULINO - avoid nephrotoxins - nephrology consult- appreciate recommendations - HTN control, monitor I/O, daily wt, iron supplements, cont diuretics - Urine work up pending - adrenal adenoma work up - Renal US: Possible left renal a stenosis, may be useful to evaluate further with CTA, MRA or conventional arteriography, R kidney smaller than L 6. Anemia - monitor closely via CBC - FOBT - Drop in past 24 hours likely 2/2 dilution 7. SIRS Criteria Met on admission - HR > 90 and RR > 20 - not sepsis- no source - blood cultures x 2 negative to date, UA clx pending, Procal was wnl 8. Hx of CAD - c/w aspirin, plavix, coreg - c/w statin 9. Hx of Hyperlipidemia - c/w statin 10. Hx of Diabetes - hold home diabetic medications - fingersticks ACHS - insulin sliding scale- lispro medium - resume diet as carb consistent DVT PPX: Heparin SC GI PPX: Famotidine Patient case discussed with and plan approved by attending physician
--- NOTE | 2017-01-16 10:11 | CP.PCM.PN ---
Subjective - Date & Time of Evaluation Date of Evaluation: 01/16/17 Time of Evaluation: 10:10 - Subjective Subjective: Patient had renal U/s and CXR Seen in Cardiac echo lab: CP resolved, reports improved congestion and breathing with BIPAP Cardiac Hx: > CAD and mild ischemic cardiomyopathy which is a significant improvement from prior echo done before PCI 08/2016 > LAD stent 12/2015 > LCX/OM stent 08/2016 > Last echo done 09/04/16 at [facility] EF was 46% improved from 35-40% in past. > PAD: known occlusion of L. popliteal aa Objective - Vital Signs/Intake and Output Vital Signs (last 24 hours): Temp Pulse Resp BP Pulse Ox 98 F 79 20 180/87 H 100 01/16/17 05:30 01/16/17 06:00 01/16/17 05:30 01/16/17 06:08 01/16/17 05:30 Intake and Output: 01/16/17 01/16/17 06:59 18:59 Intake Total 676 Balance 676 - Medications Medications: Current Medications Albuterol/Ipratropium (Duoneb 3 Mg/0.5 Mg (3 Ml) Ud) 3 ml IH [id number] [facility] Last Admin: 01/16/17 07:45 Dose: 3 ml Albuterol/Ipratropium (Duoneb 3 Mg/0.5 Mg (3 Ml) Ud) 3 ml IH Q2H PRN PRN Reason: Shortness of Breath Amlodipine Besylate (Norvasc) 10 mg PO DAILY [facility] Last Admin: 01/15/17 14:25 Dose: 10 mg Aspirin (Ecotrin) 81 mg PO DAILY [facility] Last Admin: 01/15/17 09:43 Dose: Not Given Atorvastatin Calcium (Lipitor) 80 mg PO DIN [facility] Last Admin: 01/15/17 17:27 Dose: 80 mg Carvedilol (Coreg) 25 mg PO BID [facility] Last Admin: 01/15/17 17:27 Dose: 25 mg Clopidogrel Bisulfate (Plavix) 75 mg PO DAILY [facility] Last Admin: 01/15/17 09:35 Dose: 75 mg Famotidine (Pepcid) 40 mg PO HS [facility] Last Admin: 01/15/17 23:06 Dose: 40 mg Ferrous Gluconate (Fergon) 324 mg PO TID [facility] Last Admin: 01/15/17 17:33 Dose: 324 mg Furosemide (Lasix) 40 mg IVP DAILY [facility] Last Admin: 01/16/17 06:08 Dose: 40 mg Hydralazine HCl (Apresoline) 50 mg PO BID [facility] Doxycycline Hyclate 100 mg/ (Sodium Chloride) 100 mls @ 100 mls/hr IVPB Q12 [facility] PRN Reason: Protocol Last Admin: 01/15/17 23:07 Dose: 100 mls/hr Heparin Sodium/Dextrose (Heparin 25,000 Units/250ml In D5w) 25,000 units in 250 mls @ 6.423 mls/hr IV .Q24H [facility]; 12 UNITS/KG/HR PRN Reason: Protocol Last Titration: 01/15/17 23:22 Dose: 14 units/kg/hr, 7.493 mls/hr Insulin Human Regular (Humulin R Low) 0 units SC ACHS [facility] PRN Reason: Protocol Last Admin: 01/15/17 23:02 Dose: Not Given Isosorbide Mononitrate (Imdur) 60 mg PO DAILY [facility] Methylprednisolone (Solu-Medrol) 40 mg IVP Q12 [facility] Last Admin: 01/15/17 23:06 Dose: 40 mg Multivitamins (Thera Tab) 1 tab PO 0800 [facility] Ranolazine [Ranexa] (500 Mg (Home Med)) 500 mg PO BID [facility] Roflumilast (Daliresp) 500 mcg PO HS [facility] Last Admin: 01/15/17 23:07 Dose: 500 mcg - Labs Labs: 01/16/17 05:00 01/16/17 05:00 PT 10.5 SECONDS (9.4-12.5) 01/15/17 03:26 INR 0.96 (0.93-1.08) 01/15/17 03:26 APTT 60.1 Seconds (25.1-36.5) H 01/16/17 05:00 - Constitutional Appears: No Acute Distress, Chronically Ill - Eye Exam Eye Exam: EOMI, Normal appearance, PERRL - Respiratory Exam Respiratory Exam: Rales, NORMAL BREATHING PATTERN - Cardiovascular Exam Cardiovascular Exam: REGULAR RHYTHM, +S1, +S2. absent: +S4, Murmur - GI/Abdominal Exam GI & Abdominal Exam: Normal Bowel Sounds. absent: Organomegaly, Rebound - Extremities Exam Extremities Exam: Normal Inspection. absent: Calf Tenderness - Neurological Exam Neurological Exam: Alert, Awake, Oriented x3 - Skin Skin Exam: Normal Color, Warm Assessment and Plan - Assessment and Plan (Free Text) Assessment: Impression: CP > BDLN inc in troponin > Known LAD stent 12/2015 > KNOWN lcx/om STENT 08/2016 ([facility]) > LVEF HAS RECOVERED TO 46% POST pci 08/2016 on an echo at [facility] Worsening ANEMIA: NO GROSS BLOOD LOSS; H/H drop from 10.3 -> 8.8 CXR: B/L congestion, mild-mod volume overload Mild CKD/PAULINO creat 1.6 > 1.8 * troponin may be related to acute CHF exacerbation, hypertensive diastolic dysfunction precipitated by inc Na intake * Other considerations are CKD/PAULINO Given known CAD and chronic ST changes: demand ischemia can also cause increase in troponin. I feel troponin elevation would be significantly higher if there was a late stent thrombosis. She has been compliant with meds. PLAN: >> Repeat echo suggests: EF similar to post PCI 40-46%, no high grade wall motion abnormalities, Grade 2 diastolic dysfunction with inc LA pressure c/w volume overload state. Normal RV function. >> Suggest Heparin GTT: given hx of GI bleed, monitor H/H and cont GI prophylaxis >> given drop in H/H check stool FOBT and now that trop has trended down suggest d/c heparin GTT >> Added Norvasc 10 and hydralazine 50 BID for BP control --> BP still remains high: can increase hydralazine to 50 TID >> Cont IMDUR 60 daily, Cont Ranexa 500 BID >> COnt high intesnsity Statin and Coreg for now. Additional Plan: I agree creat is elevated, however given inc LA pressure she is still volume overloaded and would benefit from lasix....her creat baseline may be in the 1.8- 2.0 range and falsely low due to volume overload... continue lasix 40 BID for 12 more days. No plans for cath as risk for TOMMIE and drop in H/H: advance medical Rx for CAD: troponin decrease is reassuring. Monitor and w/u for anemia. Stress as outpatient. D/C planning when breathing improves.
--- NOTE | 2017-01-16 10:51 | RAD ---
PROCEDURE: CHEST RADIOGRAPH, 1 VIEW HISTORY: COPD/CHF COMPARISON: 01/15/2017 FINDINGS: LUNGS: The lungs are clear. The pattern of CHF seen previously has resolved PLEURA: No pneumothorax or pleural fluid seen. CARDIOVASCULAR: Normal. OSSEOUS STRUCTURES: No significant abnormalities. VISUALIZED UPPER ABDOMEN: Normal. OTHER FINDINGS: None. IMPRESSION: No active disease.
[2017-01-16] MEDS: MethylPREDNISolone 40 mg Vial IVP SCH ×2 (11:15→21:34)
[2017-01-16] MEDS: Insulin Reg-LOW-Coverage SC SCH ×4 (11:16→21:52)
--- NOTE | 2017-01-16 11:23 | US ---
PROCEDURE: Bilateral renal artery duplex ultrasound. CLINICAL HISTORY: Renal artery stenosis. Uncontrolled hypertension. Evaluate for renovascular hypertension. PHYSICIAN(S): Inder Muller M.D. TECHNIQUE: Duplex sonography with color-flow Doppler was used to evaluate the visualized segments of the main renal arteries. The patient was evaluated in a fasting state. Imaging in a supine and decubitus position was performed. Limited evaluation of the arcuate waveforms and resistive indices were performed. FINDINGS: The overall quality of the study is adequate. The kidneys are normal in size, shape, and location. The right kidney measures the right kidney is smaller in size than the left. The right kidney which measures 8.9cm in length and the left kidney measures 11.2cm in length. No solid renal masses, abnormal calcifications, or hydronephrosis is seen. The main right renal artery is fairly well visualized from the aorta to the hilum. The peak systolic velocity in the right main renal artery is 127 cm/sec. This is consistent with a 0 to 49% stenosis in the main right renal artery. The arcuate waveforms are normal. The resistive index is normal. The main left renal artery is also fairly well seen from its origin to the renal hilum. The peak systolic velocity in the main left renal artery is 244cm/sec. This suggests a sonographic significant stenosis in the proximal main left renal artery. The arcuate waveforms and resistive indices are normal. IMPRESSION: 1. The main renal arteries are fairly well visualized. There is a borderline elevated velocity in the proximal left renal artery. Given the discrepancy in renal size(right smaller) and possibility for left renal artery stenosis, it may be useful to evaluate the renal arteries further with CTA, MRA, or conventional arteriography 3. The right kidney is smaller than the left. No evidence of hydronephrosis or solid renal mass is appreciated
[2017-01-16] MEDS: Ranolazine [Ranexa] 500 MG (HOME MED) PO SCH ×2 (11:39→17:49)
[2017-01-16] MEDS: Heparin 25,000units in D5W 25,000 UNITS/250 ML BAG IV SCH (13:52)
--- NOTE | 2017-01-16 16:15 | CP.PCM.PN ---
Subjective - Date & Time of Evaluation Date of Evaluation: 01/16/17 Time of Evaluation: 16:11 - Subjective Subjective: Follow up Nephrology Consultation: Assessment: stable Acute Kidney Injury (N17.9) likely hemodynamic due to Bp changes, possible cardiorenal Diabetic chronic Kidney Disease (E11.22) Hypertensive Chronic Kidney Disease (I12.9) Chronic Kidney Disease (N18.3) Stage 3 with ? mg proteinuria (R80.9) likely due to DM Anemia (D64.9), HTN (I12.9) COPD, ex heavy smoker, CAD s/p stent, chronic sys CHF, PVD left adrenal adenoma angina, HTN urgency, pulmonary edema Posible left renal artery stenosis, Rt renal atrophy Plan No acute need for renal replacement therapy at this time. Hypertension control with meds as ordered. Patient not on ACEI/ARB due to PAULINO, consider once stable renal function. added hydralazine Monitor Input/Output, daily weights and renal function with basic metabolic panel continue with diuretics as per cardiology added iron supplements for anemia. Check urine analysis, spot protein/creatinine and albumin/creatinine ratio check serum protein electrophoresis with immunofixation adrenal adenoma work up: renin/cholo and metanephrines level tomorrow am. Dexa suppression test for cortisol as outpt further work up for renal artery stenosis (captopril renal scan/MRA) later as outpt once pt stable and adrenal adenoma w/up neg Dose meds/antibiotics for reduced GFR. Avoid fleets enema/magnesium based laxatives. Avoid nephrotoxins/NSAIDs/ iodinated contrast (unless needed emergently) Glycemic control Further work up/management as per primary team Thanks for allowing me to participate in care of your patient. Will follow patient with you. Please call if any Qs Dr Clemente Addison Office: [phone] Chief Complaint; chest pain and SOB HPI: Pt is a 61 F with hx of diabetes Mellitus ( 15 years) with neuropathy and retinopathy, hypertension (couple years) but only lately BP this high, COPD, ex heavy smoker, CAD s/p stent, chronic sys CHF, PVD, CKD 3 (baseline cr 1.1-1.3) and left adrenal adenoma (2cm) presented with complaints of chest pain and SOB last night, admitted with angina, HTN urgency, pulmonary edema. now she feels better Denies chest pain, palpitation, improved shortness of breath, denies leg swelling now Physical Examination: General Appearance: Comfortable, in no acute respiratory distress, co-operative . Vitals reviewed and noted as below Head; Atraumatic, normocephalic ENT: no ulcers no thrush. Tongue is midline. Oropharynx: no rash or ulcers. EYES: Pupils are equal, round and reactive to light accommodation. Eye muscles and extraocular movement intact. Sclera is anicteric. Neck; supple no lymphadenopathy, no thyromegaly or bruit Lungs: Normal respiratory rate/effort. Breath sounds bilateral equal and bibasal crackles improved Heart: Normal rate. s1s2 normal. No rub or gallop. Extremities: no edema. No varicose veins Neurological: Patient is alert, awake and oriented to person, place and time. No focal deficit. Strength bilateral appropriate and equal Skin: Warm and dry. Normal turgor. No rash. Palpitation: Normal elasticity for age Abdomen: Abdomen is soft. Bowel sounds +. There is no abdominal tenderness, no guarding/rigidity no organomegaly. no bruit Psych: normal insight and normal affect/mood MSK: no joint tenderness or swelling. Digits and nails normal, no deformity : kidney or bladder not palpable Labs/imaging reviewed. Past medical history, past surgical history, family history, social history, allergy reviewed and noted as below Family hx: no hx of CKD. Rest non-contributory work up: CT abdomen: renal normal, left adrenal adenoma in 2013- renal artery normal on angiogram Objective - Vital Signs/Intake and Output Vital Signs (last 24 hours): Temp Pulse Resp BP Pulse Ox 98.4 F 78 20 123/54 L 100 01/16/17 12:00 01/16/17 12:00 01/16/17 12:00 01/16/17 12:00 01/16/17 05:30 Intake and Output: 01/16/17 01/16/17 06:59 18:59 Intake Total 676 760 Output Total 4 Balance 676 756 - Medications Medications: Current Medications Albuterol/Ipratropium (Duoneb 3 Mg/0.5 Mg (3 Ml) Ud) 3 ml IH [id number] [facility]IRINO Last Admin: 01/16/17 13:22 Dose: Not Given Albuterol/Ipratropium (Duoneb 3 Mg/0.5 Mg (3 Ml) Ud) 3 ml IH Q2H PRN PRN Reason: Shortness of Breath Amlodipine Besylate (Norvasc) 10 mg PO DAILY [facility] Last Admin: 01/16/17 11:14 Dose: 10 mg Aspirin (Ecotrin) 81 mg PO DAILY [facility] Last Admin: 01/16/17 11:14 Dose: 81 mg Atorvastatin Calcium (Lipitor) 80 mg PO DIN [facility] Last Admin: 01/15/17 17:27 Dose: 80 mg Carvedilol (Coreg) 25 mg PO BID [facility] Last Admin: 01/16/17 11:15 Dose: 25 mg Clopidogrel Bisulfate (Plavix) 75 mg PO DAILY [facility] Last Admin: 01/16/17 11:13 Dose: 75 mg Famotidine (Pepcid) 40 mg PO HS [facility] Last Admin: 01/15/17 23:06 Dose: 40 mg Ferrous Gluconate (Fergon) 324 mg PO TID [facility] Last Admin: 01/16/17 13:51 Dose: 324 mg Furosemide (Lasix) 40 mg IVP DAILY [facility] Last Admin: 01/16/17 11:15 Dose: 40 mg Heparin Sodium (Porcine) (Heparin) 5,000 units SC Q8 [facility] PRN Reason: Protocol Hydralazine HCl (Apresoline) 50 mg PO BID [facility] Last Admin: 01/16/17 11:14 Dose: 50 mg Doxycycline Hyclate 100 mg/ (Sodium Chloride) 100 mls @ 100 mls/hr IVPB Q12 [facility] PRN Reason: Protocol Last Admin: 01/16/17 11:17 Dose: 100 mls/hr Insulin Human Regular (Humulin R Low) 0 units SC ACHS [facility] PRN Reason: Protocol Last Admin: 01/16/17 11:42 Dose: 3 units Isosorbide Mononitrate (Imdur) 60 mg PO DAILY [facility] Last Admin: 01/16/17 11:13 Dose: 60 mg Methylprednisolone (Solu-Medrol) 40 mg IVP Q12 [facility] Last Admin: 01/16/17 11:15 Dose: 40 mg Multivitamins (Thera Tab) 1 tab PO 0800 [facility] Ranolazine [Ranexa] (500 Mg (Home Med)) 500 mg PO BID [facility] Last Admin: 01/16/17 11:39 Dose: 500 mg Roflumilast (Daliresp) 500 mcg PO HS [facility] Last Admin: 01/15/17 23:07 Dose: 500 mcg - Labs Labs: 01/16/17 05:00 01/16/17 05:00 PT 10.5 SECONDS (9.4-12.5) 01/15/17 03:26 INR 0.96 (0.93-1.08) 01/15/17 03:26 APTT 46.3 Seconds (25.1-36.5) H 01/16/17 11:25
--- NOTE | 2017-01-16 19:15 | CARD ---
APPROVED REPORT EXAM: Two-dimensional and M-mode echocardiogram with Doppler and color Doppler. INDICATION LV Function:SystolicDiastolic ELEVATED TROPONIN LEVELS 2D DIMENSIONS Left Atrium (2D)4.8 (1.6-4.0cm)IVSd1.2 (0.7-1.1cm) LVDd5.7 (3.9-5.9cm)PWd1.2 (0.7-1.1cm) LVDs4.4 (2.5-4.0cm)FS (%) 24.2 % LVEF (%)47.6 (>50%) M-Mode DIMENSIONS Aortic Root2.10 (2.2-3.7cm)Aortic Cusp Exc.1.60 (1.5-2.0cm) Aortic Valve AoV Peak Hwwpgnam056.0cm/Kem Peak GR.15mmHg Mitral Valve E/A ratio0.0 TDI E/Lateral E'0.0E/Medial E'0.0 Tricuspid Valve TR Peak [id number] [id number] Peak Gr.27mmHg [id number] LEFT VENTRICLE The Left Ventricle is borderline dilated. There is borderline to mild concentric left ventricular hypertrophy. The systolic function is mildly impaired.EF-45% There is mild global hypokinesis of the left ventricle. Transmitral Doppler flow pattern is Grade II-pseudonormal filling dynamics. No left ventricle thrombus noted on this study. There is no ventricular septal defect visualized. There is no left ventricular aneurysm. There is no mass noted in the left ventricle. RIGHT VENTRICLE The right ventricle is normal size. There is normal right ventricular wall thickness. The right ventricular systolic function is normal. ATRIA The left atrium is mildly dilated. The right atrium size is normal. The interatrial septum is intact with no evidence for an atrial septal defect. AORTIC VALVE The aortic valve is normal in structure. There is trace aortic regurgitation. There is no aortic valvular stenosis. There is no aortic valvular vegetation. MITRAL VALVE The mitral valve is thickened but opens well. Mitral regurgitation is mild to moderate. There is no mitral valve stenosis. There is no evidence of mitral valve prolapse. TRICUSPID VALVE The tricuspid valve leaflets are thickened , but open well. There is mild tricuspid regurgitation.RVSP-37 mmof hg. There is no tricuspid valve stenosis. There is no tricuspid valve prolapse or vegetation. PULMONIC VALVE The pulmonic valve is not well visualized. There is no pulmonic valvular regurgitation. There is no pulmonic valvular stenosis. GREAT VESSELS The aortic root is normal in size. The ascending aorta is normal in size. The pulmonary artery is normal. The IVC is normal in size and collapses >50% with inspiration. PERICARDIAL EFFUSION There is no pleural effusion. There is a trace pericardial effusion. <Conclusion> The Left Ventricle is borderline dilated. There is borderline to mild concentric left ventricular hypertrophy. The systolic function is mildly impaired.EF-45% There is trace aortic regurgitation. Mitral regurgitation is mild to moderate. There is mild tricuspid regurgitation.RVSP-37 mmof hg. The IVC is normal in size and collapses >50% with inspiration. There is a trace pericardial effusion. No Vegetation noted.
[2017-01-17] MEDS ORDERED: MethylPREDNISolone 40 mg Vial IVP SCH (00:09)
[2017-01-17 00:50] LABS: TOTAL PROTEIN, SERUM 6.6 g/dL (6.1-8.1)
[2017-01-17] MEDS: Albuterol-Ipratrop 3 mg / 0.5 (3 ml) UD IH SCH ×4 (02:45→20:11)
--- NOTE | 2017-01-17 05:53 | CON ---
DATE: 01/16/2017 REASON FOR CONSULTATION: Chronic lung disease and heart failure, sleep apnea syndrome. HISTORY OF PRESENT ILLNESS: This is a 61-year-old female known to me from the office has a known history of chronic obstructive lung disease, coronary artery disease, history of coronary stent, CA, cardiomyopathy, diabetes, suspected sleep apnea syndrome, been waiting for sleep study from the last couple of months, apparently because of insurance issue, did not get it done, comes in with shortness of breath, cough, found to have a fluid overloaded with heart failure. Seen by cardiology, also seen by Dr. Sevilla, yesterday. Diuretics inhaled bronchodilator was given. She was placed on BiPAP felt much better, this morning she is feeling okay. Decreased cough and shortness of breath. No nausea, vomiting, diarrhea, leg pain, leg swelling. PAST MEDICAL HISTORY: As per history of present illness. ALLERGIES: CIPRO, PROMETHAZINE, AND CODEINE. SOCIAL HISTORY: Stopped smoking recently. Denies any alcohol use. FAMILY HISTORY: Has a heart disease. MEDICATIONS: She is on hydralazine 50 mg twice a day, Coreg 25 mg twice a day, Daliresp 500 mcg daily, doxycycline 100 mg twice a day, DuoNeb q. 12 hour p.r.n. and q. 6 hour around the clock, Ecotrin 81 mg daily, ferrous gluconate 325 mg three times a day, heparin 5000 units subcu q. 8 hour, Imdur 60 mg daily, Lasix 40 mg daily, Lipitor 80 mg daily, Norvasc 10 mg daily, Pepcid 40 mg daily, Plavix 75 mg daily, Ranexa 500 twice a day, Solu-Medrol 40 mg q. 12 hour, multivitamins daily. REVIEW OF SYSTEMS: No headache, no rhinitis. Has still some cough, shortness of breath. No nausea, vomiting, or diarrhea. Trace leg swelling. PHYSICAL EXAMINATION: GENERAL: Lying in the bed in no acute distress. VITAL SIGNS: Temperature 98, heart rate 70, respiratory rate is 20, blood pressure 116/55, pulse ox 100% on 2 liter nasal cannula. HEENT: Moist mucous membrane. Crowded airway. Mallampati score is IV. NECK: Supple. No JVD. LUNGS: Has few crackles. Prolonged expiratory phase. HEART: S1 and S2. ABDOMEN: Soft, nontender. No organomegaly. EXTREMITIES: There is not much edema. NEUROLOGIC: Awake, alert and follows simple commands. LABORATORY DATA: Shows hemoglobin 8.8, hematocrit 28.1, WBC 11.5, platelet is 305. PTT is 25. Has a blood gases done on admission shows pH 7.29, pCO2 was 50, O2 was 82. Sodium 137, potassium 4.2, chloride 102, bicarbonate 23, BUN 47, creatinine 1.8, glucose 297, calcium is 10, phosphorus 4.8, magnesium 2.8, AST 23, ALT 21, alk phos is 82. Troponin 0.80. Albumin is 4.3. Microbiology, blood culture, sputum culture, there is no growth. Chest x-ray done this morning shows improved congestion. Had echocardiogram done, which shows right ventricular systolic pressure is 37, LV ejection fraction of 45, mild tricuspid regurgitation, mild concentric left ventricular hypertrophy. IMPRESSION AND PLAN: Cardiomyopathy with decreased left ventricular function component of sleep apnea syndrome, chronic lung disease, mild renal insufficiency, myocardial infarction, diabetes. Pulmonary point of view, she is improved. We will decrease Solu-Medrol 20 mg twice a day. Encouraged bilevel positive airway pressure use at night time. 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 We will suggest pulmonary function test and attended sleep study upon discharge as outpatient. Thank you and we will follow with you. Kari Landers MD
[2017-01-17 06:49] LABS: GRAN # 13.13 (1.4-6.5); GRAN % 92.7 % (50.0-68.0); HEMATOCRIT 27.9 % (36.0-48.0); LYMPH # 0.8 (1.2-3.4); LYMPH % 5.7 % (22.0-35.0); MEAN CORPUSCULAR HEMOGLOBIN 26.5 pg (25.0-35.0); MEAN CORPUSCULAR HGB CONC 31.5 g/dl (31.0-37.0); MEAN PLATELET VOLUME 9.9 fl (7.0-11.0); MONO # 0.2 (0.1-0.6); MONO % 1.6 % (1.0-6.0); WHITE BLOOD COUNT 14.2 10^3/ul (4.5-11.0)
[2017-01-17] MEDS ORDERED: Multivitamin Therapeutic Tab PO SCH (08:00)
[2017-01-17 08:21] LABS: ALB/GLOB RATIO 1.4 (1.1-1.8); BILIRUBIN,TOTAL 0.4 mg/dL (0.2-1.3); CALCIUM 9.5 mg/dL (8.4-10.5); MAGNESIUM 1.9 mg/dL (1.7-2.2); POTASSIUM 3.9 mmol/L (3.6-5.0); TOTAL PROTEIN 6.5 g/dL (5.8-8.3)
[2017-01-17] MEDS: Insulin Reg-LOW-Coverage SC SCH ×3 (08:21→17:13)
[2017-01-17 09:43] LABS: CREATININE, RANDOM URINE 65 mg/dL (20-320)
[2017-01-17] MEDS ORDERED: Darbepoetin Alfa 60 mcg/ml Inj SC ONE (10:06)
[2017-01-17] MEDS: Ranolazine [Ranexa] 500 MG (HOME MED) PO SCH ×2 (10:23→17:14)
--- NOTE | 2017-01-17 11:28 | CP.PCM.PN ---
Subjective - Date & Time of Evaluation Date of Evaluation: 01/17/17 Time of Evaluation: 11:25 - Subjective Subjective: Follow up Nephrology Consultation: Assessment: stable Acute Kidney Injury (N17.9) likely hemodynamic due to Bp changes, possible cardiorenal Diabetic chronic Kidney Disease (E11.22) Hypertensive Chronic Kidney Disease (I12.9) Chronic Kidney Disease (N18.3) Stage 3 with 1.6 gram proteinuria (R80.9) likely due to DM Anemia (D64.9), HTN (I12.9) COPD, ex heavy smoker, CAD s/p stent, chronic sys CHF, PVD left adrenal adenoma angina, HTN urgency, pulmonary edema Posible left renal artery stenosis, Rt renal atrophy Plan No acute need for renal replacement therapy at this time. Hypertension control with meds as ordered. Patient not on ACEI/ARB due to PAULINO, will consider once stable renal function. added hydralazine, now BP better Monitor Input/Output, daily weights and renal function with basic metabolic panel continue with diuretics as per cardiology added iron supplements for anemia. will give a dose of aransep today pending serum protein electrophoresis with immunofixation adrenal adenoma work up: renin/cholo and metanephrines level pending. Dexa suppression test for cortisol as outpt further work up for possible left renal artery stenosis (captopril renal scan/ MRA) later as outpt once pt stable and adrenal adenoma w/up neg Dose meds/antibiotics for reduced GFR. Avoid fleets enema/magnesium based laxatives. Avoid nephrotoxins/NSAIDs/ iodinated contrast (unless needed emergently) Glycemic control Further work up/management as per primary team Thanks for allowing me to participate in care of your patient. Will follow patient with you. Please call if any Qs. pt stable for d/c from renal perspective. f/up 1-2 weeks post d/c. d/w as well Dr Clemente Addison Office: [phone] Chief Complaint; none today HPI: Pt is a 61 F with hx of diabetes Mellitus ( 15 years) with neuropathy and retinopathy, hypertension (couple years) but only lately BP this high, COPD, ex heavy smoker, CAD s/p stent, chronic sys CHF, PVD, CKD 3 (baseline cr 1.1-1.3) and left adrenal adenoma (2cm) presented with complaints of chest pain and SOB last night, admitted with angina, HTN urgency, pulmonary edema. now she feels better Denies chest pain, palpitation, improved shortness of breath, denies leg swelling now Physical Examination: General Appearance: Comfortable, in no acute respiratory distress, co-operative . Vitals reviewed and noted as below Head; Atraumatic, normocephalic ENT: no ulcers no thrush. Tongue is midline. Oropharynx: no rash or ulcers. EYES: Pupils are equal, round and reactive to light accommodation. Eye muscles and extraocular movement intact. Sclera is anicteric. Neck; supple no lymphadenopathy, no thyromegaly or bruit Lungs: Normal respiratory rate/effort. Breath sounds bilateral equal clear. somewhat decreased at left base Heart: Normal rate. s1s2 normal. No rub or gallop. Extremities: no edema. No varicose veins Neurological: Patient is alert, awake and oriented to person, place and time. No focal deficit. Strength bilateral appropriate and equal Skin: Warm and dry. Normal turgor. No rash. Palpitation: Normal elasticity for age Abdomen: Abdomen is soft. Bowel sounds +. There is no abdominal tenderness, no guarding/rigidity no organomegaly. no bruit Psych: normal insight and normal affect/mood MSK: no joint tenderness or swelling. Digits and nails normal, no deformity : kidney or bladder not palpable Labs/imaging reviewed. Past medical history, past surgical history, family history, social history, allergy reviewed and noted as below Family hx: no hx of CKD. Rest non-contributory work up: CT abdomen: renal normal, left adrenal adenoma in 2013- renal artery normal on angiogram Objective - Vital Signs/Intake and Output Vital Signs (last 24 hours): Temp Pulse Resp BP Pulse Ox 98.1 F 79 20 145/64 99 01/17/17 06:00 01/17/17 10:16 01/17/17 06:00 01/17/17 10:22 01/17/17 06:00 Intake and Output: 01/17/17 01/17/17 06:59 18:59 Intake Total 100 120 Balance 100 120 - Medications Medications: Current Medications Albuterol/Ipratropium (Duoneb 3 Mg/0.5 Mg (3 Ml) Ud) 3 ml IH [id number] [facility]IR[facility] Last Admin: 01/17/17 07:58 Dose: 3 ml Albuterol/Ipratropium (Duoneb 3 Mg/0.5 Mg (3 Ml) Ud) 3 ml IH Q2H PRN PRN Reason: Shortness of Breath Amlodipine Besylate (Norvasc) 10 mg PO DAILY [facility] Last Admin: 01/17/17 10:22 Dose: 10 mg Aspirin (Ecotrin) 81 mg PO DAILY [facility] Last Admin: 01/17/17 10:17 Dose: 81 mg Atorvastatin Calcium (Lipitor) 80 mg PO DIN [facility] Last Admin: 01/16/17 17:47 Dose: 80 mg Carvedilol (Coreg) 25 mg PO BID [facility] Last Admin: 01/17/17 10:16 Dose: 25 mg Clopidogrel Bisulfate (Plavix) 75 mg PO DAILY [facility] Last Admin: 01/17/17 10:23 Dose: 75 mg Famotidine (Pepcid) 40 mg PO HS [facility] Last Admin: 01/16/17 21:36 Dose: 40 mg Ferrous Gluconate (Fergon) 324 mg PO TID [facility] Last Admin: 01/17/17 10:17 Dose: 324 mg Furosemide (Lasix) 40 mg IVP DAILY [facility] Last Admin: 01/17/17 10:18 Dose: 40 mg Heparin Sodium (Porcine) (Heparin) 5,000 units SC Q8 [facility] PRN Reason: Protocol Last Admin: 01/17/17 05:06 Dose: 5,000 units Hydralazine HCl (Apresoline) 50 mg PO BID [facility] Last Admin: 01/17/17 10:15 Dose: 50 mg Doxycycline Hyclate 100 mg/ (Sodium Chloride) 100 mls @ 100 mls/hr IVPB Q12 [facility] PRN Reason: Protocol Last Admin: 01/17/17 10:25 Dose: 100 mls/hr Insulin Human Regular (Humulin R Low) 0 units SC ACHS [facility] PRN Reason: Protocol Last Admin: 01/17/17 08:21 Dose: 2 units Isosorbide Mononitrate (Imdur) 60 mg PO DAILY [facility] Last Admin: 01/17/17 10:18 Dose: 60 mg Methylprednisolone (Solu-Medrol) 20 mg IVP Q12 [facility] Last Admin: 01/17/17 10:24 Dose: 20 mg Multivitamins (Thera Tab) 1 tab PO 0800 [facility] Last Admin: 01/17/17 10:24 Dose: 1 tab Ranolazine [Ranexa] (500 Mg (Home Med)) 500 mg PO BID [facility] Last Admin: 01/17/17 10:23 Dose: 500 mg Roflumilast (Daliresp) 500 mcg PO HS [facility] Last Admin: 01/16/17 21:36 Dose: 500 mcg - Labs Labs: 01/17/17 06:20 01/17/17 06:20 PT 10.5 SECONDS (9.4-12.5) 01/15/17 03:26 INR 0.96 (0.93-1.08) 01/15/17 03:26 APTT 25.8 Seconds (25.1-36.5) 01/16/17 19:42
[2017-01-17 12:05] LABS: BETA 1 GLOBULIN 0.4 g/dL (0.4-0.6); BETA 2 GLOBULIN 0.4 g/dL (0.2-0.5); GAMMA GLOBULIN 0.7 g/dL (0.8-1.7)
--- NOTE | 2017-01-17 13:12 | CP.PCM.PN ---
Subjective - Date & Time of Evaluation Date of Evaluation: 01/17/17 Time of Evaluation: 13:12 - Subjective Subjective: PGY IM PROGRESS NOTE DR. ABBOTT/DR. HUA Patient seen and evaluated. No acute events overnight reported. Patient complaining of non productive cough. Denies chest pain, shortness of breath, abdominal pain, n/v/f/c. Patient continues to report improvement in her clinical health. Objective - Vital Signs/Intake and Output Vital Signs (last 24 hours): Temp Pulse Resp BP Pulse Ox 98.1 F 79 20 145/64 99 01/17/17 06:00 01/17/17 10:16 01/17/17 06:00 01/17/17 10:22 01/17/17 06:00 Intake and Output: 01/17/17 01/17/17 06:59 18:59 Intake Total 100 120 Balance 100 120 - Medications Medications: Current Medications Albuterol/Ipratropium (Duoneb 3 Mg/0.5 Mg (3 Ml) Ud) 3 ml IH [id number] [facility] Last Admin: 01/17/17 07:58 Dose: 3 ml Albuterol/Ipratropium (Duoneb 3 Mg/0.5 Mg (3 Ml) Ud) 3 ml IH Q2H PRN PRN Reason: Shortness of Breath Amlodipine Besylate (Norvasc) 10 mg PO DAILY [facility] Last Admin: 01/17/17 10:22 Dose: 10 mg Aspirin (Ecotrin) 81 mg PO DAILY [facility] Last Admin: 01/17/17 10:17 Dose: 81 mg Atorvastatin Calcium (Lipitor) 80 mg PO DIN [facility] Last Admin: 01/16/17 17:47 Dose: 80 mg Carvedilol (Coreg) 25 mg PO BID [facility] Last Admin: 01/17/17 10:16 Dose: 25 mg Clopidogrel Bisulfate (Plavix) 75 mg PO DAILY [facility] Last Admin: 01/17/17 10:23 Dose: 75 mg Famotidine (Pepcid) 40 mg PO HS [facility] Last Admin: 01/16/17 21:36 Dose: 40 mg Ferrous Gluconate (Fergon) 324 mg PO TID [facility] Last Admin: 01/17/17 10:17 Dose: 324 mg Furosemide (Lasix) 40 mg IVP DAILY [facility] Last Admin: 01/17/17 10:18 Dose: 40 mg Heparin Sodium (Porcine) (Heparin) 5,000 units SC Q8 [facility] PRN Reason: Protocol Last Admin: 01/17/17 05:06 Dose: 5,000 units Hydralazine HCl (Apresoline) 50 mg PO BID [facility] Last Admin: 01/17/17 10:15 Dose: 50 mg Doxycycline Hyclate 100 mg/ (Sodium Chloride) 100 mls @ 100 mls/hr IVPB Q12 [facility] PRN Reason: Protocol Last Admin: 01/17/17 10:25 Dose: 100 mls/hr Insulin Human Regular (Humulin R Low) 0 units SC ACHS [facility] PRN Reason: Protocol Last Admin: 01/17/17 12:16 Dose: 4 units Isosorbide Mononitrate (Imdur) 60 mg PO DAILY [facility] Last Admin: 01/17/17 10:18 Dose: 60 mg Methylprednisolone (Solu-Medrol) 20 mg IVP Q12 [facility] Last Admin: 01/17/17 10:24 Dose: 20 mg Multivitamins (Thera Tab) 1 tab PO 0800 [facility] Last Admin: 01/17/17 10:24 Dose: 1 tab Ranolazine [Ranexa] (500 Mg (Home Med)) 500 mg PO BID [facility] Last Admin: 01/17/17 10:23 Dose: 500 mg Roflumilast (Daliresp) 500 mcg PO HS [facility] Last Admin: 01/16/17 21:36 Dose: 500 mcg - Labs Labs: 01/17/17 06:20 01/17/17 06:20 PT 10.5 SECONDS (9.4-12.5) 01/15/17 03:26 INR 0.96 (0.93-1.08) 01/15/17 03:26 APTT 25.8 Seconds (25.1-36.5) 01/16/17 19:42 - Constitutional Appears: No Acute Distress - Head Exam Head Exam: ATRAUMATIC, NORMAL INSPECTION, NORMOCEPHALIC - Eye Exam Eye Exam: EOMI, PERRL - ENT Exam ENT Exam: Mucous Membranes Moist - Respiratory Exam Respiratory Exam: Clear to Ausculation Bilateral, NORMAL BREATHING PATTERN. absent: Rales, Rhonchi, Wheezes - Cardiovascular Exam Cardiovascular Exam: REGULAR RHYTHM, +S1, +S2 - GI/Abdominal Exam GI & Abdominal Exam: Soft, Normal Bowel Sounds. absent: Guarding, Rigid, Tenderness - Extremities Exam Extremities Exam: absent: Calf Tenderness, Pedal Edema - Neurological Exam Neurological Exam: Alert, Awake, Normal Gait - Psychiatric Exam Psychiatric exam: Normal Affect, Normal Mood - Skin Skin Exam: Dry, Intact. absent: Rash Assessment and Plan - Assessment and Plan (Free Text) Assessment: Patient is a 61 year old female, whose past medical history includes COPD, CAD with multiple stents, NSTEMI, CHF, PAD with claudication, and neuropathy, who was admitted for evaluation and treatment of chest pain. Patient being medically managed for chest pain, flash pulm edema, PAULINO. Plan: 1. Chest Pain - Etiology: ACS vs. Demand ischemia - Troponin elevation with max at 1.56, trending down at this point - cardiology consulted- appreciate recommendations - Continue Imdur, ranexa, statin, coreg, dc heparin given trop trend - repeat echo showing 40-46% with no high grade wall motion abn, grade 2 DD - no plans for cath, stress as outpatient - Volume overloaded with benefit from lasix, baseline Cr may be elevated and falsely low at this point due to vol overload - DC planning when breathing improves 2. Hypertension - BP control with norvasc, coreg, lasix, imdur - readings and trends appreciated cont monitor 3. Acute on Chronic COPD Exacerbation - duobnebs q4 scheduled, solumedrol 20mg IV BID - bipap 12, 4 adjust FiO2 to keep SaO2 between 92-95% PRN, QHS - pulmonology consulted and following - antibiotiotics- doxcycline, no azithromycin due to QTc prolongation 4. Acute on Chronic CHF Exacerbation - strict i and o - daily weights - lasix 40 IV Daily - Physical exam shows clear lungs, no edema - previous ECHO EF 20-25% - cardiology consulted- appreciate recommendations 5. PAULINO - avoid nephrotoxins - nephrology consult- appreciate recommendations - HTN control, monitor I/O, daily wt, iron supplements, cont diuretics - adrenal adenoma work up - Renal US: Possible left renal a stenosis, may be useful to evaluate further with CTA, MRA or conventional arteriography, R kidney smaller than L - will discuss for outpatient follow up 6. Anemia - monitor closely via CBC - FOBT - H/H has been lower, stable past 48 hours, continue to monitor 7. SIRS Criteria Met on admission - HR > 90 and RR > 20 - not sepsis- no source - blood cultures x 2 negative to date, UA clx pending, Procal was wnl 8. Hx of CAD - c/w aspirin, plavix, coreg - c/w statin 9. Hx of Hyperlipidemia - c/w statin 10. Hx of Diabetes - hold home diabetic medications - fingersticks ACHS - insulin sliding scale- lispro medium - carb consistent diet DVT PPX: Heparin SC GI PPX: Famotidine Patient case discussed with and plan approved by attending physician
[2017-01-17 17:11] VITALS: TEMP 98.4
[2017-01-17 17:14] VITALS: BP 178/59; O2SAT 98
[2017-01-17 18:27] VITALS: PULSE 87
--- NOTE | 2017-01-18 00:04 | PN ---
DATE: 01/17/2017 PULMONARY PROGRESS NOTE REFERRING PHYSICIAN: Terrence White MD SUBJECTIVE: She is sitting at the side of the bed, is at the bedside. Night was unremarkable. Tolerated BiPAP well. No headache. No rhinitis. Breathing is better. No nausea. No vomiting. No diarrhea. No leg pain or leg swelling. PHYSICAL EXAMINATION: GENERAL: In no acute distress. VITAL SIGNS: Temperature is 98, heart rate is 78, respiratory rate is 20, blood pressure is 178/59, and pulse oximetry is 78% on nasal cannula. HEENT: Moist mucous membrane. Crowded airway. Mallampati score is 4. NECK: Supple. No JVD. LUNGS: Has a few scattered crackles at the bases. HEART: S1 and S2. ABDOMEN: Soft and nontender. No organomegaly. EXTREMITIES: No edema. NEUROLOGIC: Awake and alert. Follows simple commands. MEDICATIONS: She is on hydralazine 50 mg twice a day, Coreg 25 mg twice a day, Daliresp 500 mcg at bedtime, doxycycline 100 mg twice a day, DuoNeb q. 12 hours. p.r.n. and q. 6 hours. around the clock, Ecotrin 81 mg daily, ferrous gluconate 325 mg three times a day, insulin coverage, Imdur 60 mg daily, Lasix 20 mg daily, Lipitor 80 mg daily, Norvasc 10 mg daily, Pepcid 40 mg daily, Plavix 75 mg daily, Ranexa 500 mg daily, Solu-Medrol 20 mg q. 12 hours, and multivitamins daily. LABORATORY DATA: Shows hemoglobin of 8.8, hematocrit of 27.9, WBC of 14.2, and platelet count is 319. Sodium of 140, potassium of 3.9, chloride of 105, bicarbonate of 22, BUN of 59, creatinine of 1.9, glucose of 230, calcium of 9.5, phosphorus of 5.0, and magnesium of 1.9. AST of 14, ALT of 16, and alkaline phosphatase is 69. Albumin is 3.8. Microbiology; blood culture and sputum culture, there is no growth. IMPRESSION AND PLAN: 1. Cardiomyopathy with decreased left ventricular function. 2. Component of sleep apnea syndrome. 3. Chronic lung disease. 4. Mild renal insufficiency status post myocardial infarction. 5. Diabetes. PLAN: I spoke to the patient's and the patient's daughter, talked about the cardiopulmonary issues. The patient will benefit from a 10-day sleep study. Will also need full PF to assess lung function. May taper Solu-Medrol off and start p.o. prednisone, taper dose for 4 to 5 days. Continue inhaled bronchodilator. Continue diuretics. Need followup electrolyte and Cardiology follow up. Thank you and we will follow with you. Kari Landers MD
== END 2017-01-17 22:00 | disposition home or self-care (01) | DRG 291 ==
LOC: ED 02:58 → ERH 05:30 → 3RSO 06:34
PROVIDERS: ADMIT Internal Medicine; ATTEND Internal Medicine
DX: I13.0 Hypertensive heart and chronic kidney disease with heart failure and stage 1 through stage 4 chronic kidney disease, or unspecified chronic kidney disease (principal); I50.23 Acute on chronic systolic (congestive) heart failure; E87.2 Acidosis; E11.22 Type 2 diabetes mellitus with diabetic chronic kidney disease; R65.10 Systemic inflammatory response syndrome (SIRS) of non-infectious origin without acute organ dysfunction; N17.9 Acute kidney failure, unspecified; N18.3 Chronic kidney disease, stage 3 (moderate); E11.40 Type 2 diabetes mellitus with diabetic neuropathy, unspecified; E11.319 Type 2 diabetes mellitus with unspecified diabetic retinopathy without macular edema; J44.1 Chronic obstructive pulmonary disease with (acute) exacerbation; I24.8 Other forms of acute ischemic heart disease; I70.1 Atherosclerosis of renal artery; I16.0 Hypertensive urgency; D35.02 Benign neoplasm of left adrenal gland; D64.9 Anemia, unspecified; E11.51 Type 2 diabetes mellitus with diabetic peripheral angiopathy without gangrene; E78.5 Hyperlipidemia, unspecified; G47.30 Sleep apnea, unspecified; I25.119 Atherosclerotic heart disease of native coronary artery with unspecified angina pectoris; I25.2 Old myocardial infarction; I25.5 Ischemic cardiomyopathy; I45.81 Long QT syndrome; R09.02 Hypoxemia; Z79.02 Long term (current) use of antithrombotics/antiplatelets; Z79.82 Long term (current) use of aspirin; Z79.899 Other long term (current) drug therapy; Z80.8 Family history of malignant neoplasm of other organs or systems; Z83.3 Family history of diabetes mellitus; Z87.01 Personal history of pneumonia (recurrent); Z87.891 Personal history of nicotine dependence; Z95.5 Presence of coronary angioplasty implant and graft; Z88.1 Allergy status to other antibiotic agents; Z88.5 Allergy status to narcotic agent; Z88.8 Allergy status to other drugs, medicaments and biological substances; Z87.892 Personal history of anaphylaxis; R40.2412 Glasgow coma scale score 13-15, at arrival to emergency department; I07.1 Rheumatic tricuspid insufficiency; I51.7 Cardiomegaly; N26.1 Atrophy of kidney (terminal)